=== PATIENT | male | born 1970 | race Caucasian/White ===

== ENCOUNTER 2019-09-22 18:42 | Inpatient (IN) | payer OTHER ==
[2019-09-22] MEDS ORDERED: SODIUM CHLORIDE 0.9% 500 ML 500 ML IV ONE (18:51)
[2019-09-22 19:23] LABS: Hematocrit 38.3 % (35.5-45.6); Hemoglobin 12.4 gm/dl (11.8-15.2); Mean Corpuscular HGB Conc 32 % (32-34); Mean Corpuscular Volume 98 fl (84-94); Platelet Count 445 K/mm3 (140-440); Red Blood Count 3.89 M/mm3 (3.65-5.03); Red Cell Distribution Width 13.2 % (13.2-15.2)
[2019-09-22 19:30] LABS: INR 1.17 (0.87-1.13)
[2019-09-22] MEDS ORDERED: CEFEPIME/NS 2 GM/100 ML 2 GM/100 ML BAG IV ONE (19:32)
[2019-09-22] MEDS ORDERED: MORPHINE 4 MG/1 ML INJ IV ONE (19:33)
[2019-09-22] MEDS ORDERED: SODIUM CHLORIDE 0.9% 1000 ML 2,000 ML IV ONE (19:35)
[2019-09-22 19:44] LABS: Albumin 2.3 g/dL (3.9-5); Calcium 9.2 mg/dL (8.4-10.2)
--- NOTE | 2019-09-22 19:54 | XRay Report ---
CHEST 1 VIEW 09/22/2019 7:20 PM INDICATION / CLINICAL INFORMATION: possible Sepsis. COMPARISON: None available. FINDINGS: SUPPORT DEVICES: None. HEART / MEDIASTINUM: No significant abnormality. LUNGS / PLEURA: No significant pulmonary or pleural abnormality. No pneumothorax. ADDITIONAL FINDINGS: No significant additional findings. IMPRESSION: 1. No acute findings. Signer Name: Lawrence Fisher MD Signed: 09/22/2019 7:50 PM Workstation Name: [id number]
[2019-09-22 19:58] LABS: Basophils % (Manual) 0 % (0.0-1.8); Eosinophils % (Manual) 0 % (0.0-4.3); Total Cells Counted 100
[2019-09-22 19:59] LABS: RBC Morphology Normal
[2019-09-22] MEDS ORDERED: VANCOMYCIN PHARMACY TO DOSE IV SCH (20:00)
[2019-09-22] MEDS ORDERED: INSULIN REGULAR, HUMAN 100 UNITS/1 ML IV ONE ×2 (20:21→22:34)
--- NOTE | 2019-09-22 20:37 | Emergency Department Report ---
- General Chief Complaint: Skin/Abscess/Foreign Body Stated Complaint: HYPERTENSION/DIABETIC Time Seen by Provider: 09/22/19 19:24 Source: patient Mode of arrival: Wheelchair Limitations: No Limitations - History of Present Illness Initial Comments: Patient is a 48-year-old male presents emergency room with complaints of an abscess to the left buttock that began a week ago. He states there has been copious amounts of foul-smelling pus drainage. He states he has associated pain to the area. He denies hitting himself on anything or getting bit by anything that he can remember Denies any fever, chills, vomiting. He states he has never had this in the past. He states he has a past medical history of diabetes and is on metformin 500 mg daily. he denies any insulin use. He states he also has history of hypertension. He denies any allergies medications. - Related Data Home Medications Medication Instructions Recorded Confirmed Last Taken amLODIPine 1 tab PO DAILY 09/22/19 09/22/19 Unknown metFORMIN [Glucophage] 1 tab PO DAILY 09/22/19 09/22/19 Unknown Allergies Allergy/AdvReac Type Severity Reaction Status Date / Time No Known Allergies Allergy Unverified 09/22/19 18:50 ED Review of Systems ROS: Stated complaint: HYPERTENSION/DIABETIC Other details as noted in HPI Comment: All other systems reviewed and negative ED Past Medical Hx - Past Medical History Previous Medical History?: Yes Hx Hypertension: Yes Hx Diabetes: Yes - Social History Smoking Status: Unknown if ever smoked Substance Use Type: None - Medications Home Medications: Home Medications Medication Instructions Recorded Confirmed Last Taken Type amLODIPine 1 tab PO DAILY 09/22/19 09/22/19 Unknown History metFORMIN [Glucophage] 1 tab PO DAILY 09/22/19 09/22/19 Unknown History ED Physical Exam - General Limitations: No Limitations General appearance: alert, in no apparent distress - Head Head exam: Present: atraumatic, normocephalic - Eye Eye exam: Present: normal appearance - ENT ENT exam: Present: mucous membranes moist - Respiratory Respiratory exam: Present: normal lung sounds bilaterally. Absent: respiratory distress, wheezes, rales, rhonchi, stridor, chest wall tenderness, accessory muscle use, decreased breath sounds, prolonged expiratory - Cardiovascular Cardiovascular Exam: Present: regular rate, tachycardia, normal heart sounds. Absent: systolic murmur, diastolic murmur, rubs, gallop - Rectal Rectal exam: Present: other (large 9 cm area of induration, erythema, and increased warmth to the inner left gluteus, there is a 2 cm opening draining green/white purulent very foul smelling drainage, no involvement of the perineum or scrotum, fuller brush man: ARTHUR Lyman) - Neurological Exam Neurological exam: Present: alert, oriented X3 - Psychiatric Psychiatric exam: Present: normal affect, normal mood - Skin Skin exam: Present: warm ED Course Vital Signs 09/22/19 09/22/19 09/22/19 18:57 19:40 20:00 Temperature 98.8 F 98.9 F Pulse Rate 118 H 99 H 98 H Respiratory 16 17 17 Rate Blood Pressure 125/70 125/70 Blood Pressure 105/77 125/70 [Right] O2 Sat by Pulse 96 96 94 Oximetry 09/22/19 09/22/19 09/22/19 20:30 21:20 21:30 Temperature Pulse Rate 94 H 100 H 95 H Respiratory 18 13 17 Rate Blood Pressure 116/97 124/68 124/68 Blood Pressure [Right] O2 Sat by Pulse 95 96 95 Oximetry 09/22/19 09/22/19 09/22/19 22:00 23:00 23:30 Temperature Pulse Rate 92 H 94 H 95 H Respiratory 13 23 21 Rate Blood Pressure 122/72 125/70 120/79 Blood Pressure [Right] O2 Sat by Pulse 92 93 90 Oximetry 09/23/19 09/23/19 09/23/19 00:40 00:50 00:56 Temperature 98.9 F Pulse Rate 92 H 94 H 92 H Respiratory 29 H 27 H 22 Rate Blood Pressure 122/77 128/78 Blood Pressure 122/77 [Right] O2 Sat by Pulse 90 89 Oximetry 09/23/19 09/23/19 09/23/19 01:00 01:10 01:20 Temperature Pulse Rate 94 H 97 H 99 H Respiratory 33 H 26 H 30 H Rate Blood Pressure 128/78 128/78 148/72 Blood Pressure [Right] O2 Sat by Pulse 90 93 88 Oximetry - Consultations Consultation #1: 09/22/19 22:[address] Reilly, general surgery, regarding pt and CT results recommended NPO, advised for the hospitalist to admit and to aggressively fluid resuscitate, will take to the OR in the AM. Consultation #2: 09/22/19 23:[address] Harvey, hospitalist regarding patient, will accept and resume care of patient, will admit to the hospital ED Medical Decision Making - Lab Data Result diagrams: 09/22/19 19:00 09/22/19 19:00 Lab Results 09/22/19 09/22/19 09/22/19 Range/Units 19:00 19:00 19:00 WBC 16.2 H (4.5-11.0) K/mm3 RBC 3.89 (3.65-5.03) M/mm3 Hgb 12.4 (11.8-15.2) gm/dl Hct 38.3 (35.5-45.6) % MCV 98 H (84-94) fl MCH 32 (28-32) pg MCHC 32 (32-34) % RDW 13.2 (13.2-15.2) % Plt Count 445 H (140-440) K/mm3 Add Manual Diff Complete Total Counted 100 Seg Neuts % (Manual) 84.0 H (40.0-70.0) % Band Neutrophils % 0 % Lymphocytes % (Manual) 10.0 L (13.4-35.0) % Reactive Lymphs % (Man) 0 % Monocytes % (Manual) 6.0 (0.0-7.3) % Eosinophils % (Manual) 0 (0.0-4.3) % Basophils % (Manual) 0 (0.0-1.8) % Metamyelocytes % 0 % Myelocytes % 0 % Promyelocytes % 0 % Blast Cells % 0 % Nucleated RBC % Not Reportable Seg Neutrophils # Man 13.6 H (1.8-7.7) K/mm3 Band Neutrophils # 0.0 K/mm3 Lymphocytes # (Manual) 1.6 (1.2-5.4) K/mm3 Abs React Lymphs (Man) 0.0 K/mm3 Monocytes # (Manual) 1.0 H (0.0-0.8) K/mm3 Eosinophils # (Manual) 0.0 (0.0-0.4) K/mm3 Basophils # (Manual) 0.0 (0.0-0.1) K/mm3 Metamyelocytes # 0.0 K/mm3 Myelocytes # 0.0 K/mm3 Promyelocytes # 0.0 K/mm3 Blast Cells # 0.0 K/mm3 WBC Morphology Not Reportable Hypersegmented Neuts Not Reportable Hyposegmented Neuts Not Reportable Hypogranular Neuts Not Reportable Smudge Cells Not Reportable Toxic Granulation Not Reportable Toxic Vacuolation Not Reportable Dohle Bodies Not Reportable Pelger-Huet Anomaly Not Reportable Mili Rods Not Reportable Platelet Estimate Not Reportable Clumped Platelets Not Reportable Plt Clumps, EDTA Not Reportable Large Platelets Not Reportable Giant Platelets Not Reportable Platelet Satelliting Not Reportable Plt Morphology Comment Not Reportable RBC Morphology Normal Dimorphic RBCs Not Reportable Polychromasia Not Reportable Hypochromasia Not Reportable Poikilocytosis Not Reportable Anisocytosis Not Reportable Microcytosis Not Reportable Macrocytosis Not Reportable Spherocytes Not Reportable Pappenheimer Bodies Not Reportable Sickle Cells Not Reportable Target Cells Not Reportable Tear Drop Cells Not Reportable Ovalocytes Not Reportable Helmet Cells Not Reportable [place] Bodies Not Reportable [place] Rings Not Reportable [place] Cells Not Reportable Bite Cells Not Reportable Crenated Cell Not Reportable Elliptocytes Not Reportable Acanthocytes (Spur) Not Reportable Rouleaux Not Reportable Hemoglobin C Crystals Not Reportable Schistocytes Not Reportable Malaria parasites Not Reportable Nicholas Bodies Not Reportable Hem Pathologist Commnt No PT 14.8 (12.2-14.9) Sec. INR 1.17 H (0.87-1.13) VBG pH (7.320-7.420) Sodium 124 L (137-145) mmol/L Potassium 4.4 (3.6-5.0) mmol/L Chloride 81.8 L (98-107) mmol/L Carbon Dioxide 20 L (22-30) mmol/L Anion Gap 27 mmol/L BUN 20 (9-20) mg/dL Creatinine 1.3 (0.8-1.5) mg/dL Estimated GFR 59 ml/min BUN/Creatinine Ratio 15 % Glucose 687 H* (75-100) mg/dL POC Glucose (70-105) Lactic Acid (0.7-2.0) mmol/L Calcium 9.2 (8.4-10.2) mg/dL Total Bilirubin 0.40 (0.1-1.2) mg/dL AST 51 H (5-40) units/L ALT 48 (7-56) units/L Alkaline Phosphatase 128 (35-129) units/L Total Protein 7.9 (6.3-8.2) g/dL Albumin 2.3 L (3.9-5) g/dL Albumin/Globulin Ratio 0.4 % 09/22/19 09/22/19 09/22/19 Range/Units 19:00 19:00 20:07 WBC (4.5-11.0) K/mm3 RBC (3.65-5.03) M/mm3 Hgb (11.8-15.2) gm/dl Hct (35.5-45.6) % MCV (84-94) fl MCH (28-32) pg MCHC (32-34) % RDW (13.2-15.2) % Plt Count (140-440) K/mm3 Add Manual Diff Total Counted Seg Neuts % (Manual) (40.0-70.0) % Band Neutrophils % % Lymphocytes % (Manual) (13.4-35.0) % Reactive Lymphs % (Man) % Monocytes % (Manual) (0.0-7.3) % Eosinophils % (Manual) (0.0-4.3) % Basophils % (Manual) (0.0-1.8) % Metamyelocytes % % Myelocytes % % Promyelocytes % % Blast Cells % % Nucleated RBC % Seg Neutrophils # Man (1.8-7.7) K/mm3 Band Neutrophils # K/mm3 Lymphocytes # (Manual) (1.2-5.4) K/mm3 Abs React Lymphs (Man) K/mm3 Monocytes # (Manual) (0.0-0.8) K/mm3 Eosinophils # (Manual) (0.0-0.4) K/mm3 Basophils # (Manual) (0.0-0.1) K/mm3 Metamyelocytes # K/mm3 Myelocytes # K/mm3 Promyelocytes # K/mm3 Blast Cells # K/mm3 WBC Morphology Hypersegmented Neuts Hyposegmented Neuts Hypogranular Neuts Smudge Cells Toxic Granulation Toxic Vacuolation Dohle Bodies Pelger-Huet Anomaly Mili Rods Platelet Estimate Clumped Platelets Plt Clumps, EDTA Large Platelets Giant Platelets Platelet Satelliting Plt Morphology Comment RBC Morphology Dimorphic RBCs Polychromasia Hypochromasia Poikilocytosis Anisocytosis Microcytosis Macrocytosis Spherocytes Pappenheimer Bodies Sickle Cells Target Cells Tear Drop Cells Ovalocytes Helmet Cells [place] Bodies [place] Rings [place] Cells Bite Cells Crenated Cell Elliptocytes Acanthocytes (Spur) Rouleaux Hemoglobin C Crystals Schistocytes Malaria parasites Nicholas Bodies Hem Pathologist Commnt PT (12.2-14.9) Sec. INR (0.87-1.13) VBG pH 7.354 (7.320-7.420) Sodium (137-145) mmol/L Potassium (3.6-5.0) mmol/L Chloride (98-107) mmol/L Carbon Dioxide (22-30) mmol/L Anion Gap mmol/L BUN (9-20) mg/dL Creatinine (0.8-1.5) mg/dL Estimated GFR ml/min BUN/Creatinine Ratio % Glucose (75-100) mg/dL POC Glucose (70-105) Lactic Acid 6.40 H* 3.90 H* (0.7-2.0) mmol/L Calcium (8.4-10.2) mg/dL Total Bilirubin (0.1-1.2) mg/dL AST (5-40) units/L ALT (7-56) units/L Alkaline Phosphatase (35-129) units/L Total Protein (6.3-8.2) g/dL Albumin (3.9-5) g/dL Albumin/Globulin Ratio % //19 Range/Units 20:50 WBC (4.5-11.0) K/mm3 RBC (3.65-5.03) M/mm3 Hgb (11.8-15.2) gm/dl Hct (35.5-45.6) % MCV (84-94) fl MCH (28-32) pg MCHC (32-34) % RDW (13.2-15.2) % Plt Count (140-440) K/mm3 Add Manual Diff Total Counted Seg Neuts % (Manual) (40.0-70.0) % Band Neutrophils % % Lymphocytes % (Manual) (13.4-35.0) % Reactive Lymphs % (Man) % Monocytes % (Manual) (0.0-7.3) % Eosinophils % (Manual) (0.0-4.3) % Basophils % (Manual) (0.0-1.8) % Metamyelocytes % % Myelocytes % % Promyelocytes % % Blast Cells % % Nucleated RBC % Seg Neutrophils # Man (1.8-7.7) K/mm3 Band Neutrophils # K/mm3 Lymphocytes # (Manual) (1.2-5.4) K/mm3 Abs React Lymphs (Man) K/mm3 Monocytes # (Manual) (0.0-0.8) K/mm3 Eosinophils # (Manual) (0.0-0.4) K/mm3 Basophils # (Manual) (0.0-0.1) K/mm3 Metamyelocytes # K/mm3 Myelocytes # K/mm3 Promyelocytes # K/mm3 Blast Cells # K/mm3 WBC Morphology Hypersegmented Neuts Hyposegmented Neuts Hypogranular Neuts Smudge Cells Toxic Granulation Toxic Vacuolation Dohle Bodies Pelger-Huet Anomaly Mili Rods Platelet Estimate Clumped Platelets Plt Clumps, EDTA Large Platelets Giant Platelets Platelet Satelliting Plt Morphology Comment RBC Morphology Dimorphic RBCs Polychromasia Hypochromasia Poikilocytosis Anisocytosis Microcytosis Macrocytosis Spherocytes Pappenheimer Bodies Sickle Cells Target Cells Tear Drop Cells Ovalocytes Helmet Cells [place] Bodies [place] Rings Al Cells Bite Cells Crenated Cell Elliptocytes Acanthocytes (Spur) Rouleaux Hemoglobin C Crystals Schistocytes Malaria parasites Nicholas Bodies Hem Pathologist Commnt PT (12.2-14.9) Sec. INR (0.87-1.13) VBG pH (7.320-7.420) Sodium (137-145) mmol/L Potassium (3.6-5.0) mmol/L Chloride (98-107) mmol/L Carbon Dioxide (22-30) mmol/L Anion Gap mmol/L BUN (9-20) mg/dL Creatinine (0.8-1.5) mg/dL Estimated GFR ml/min BUN/Creatinine Ratio % Glucose (75-100) mg/dL POC Glucose > 500 H (70-105) Lactic Acid (0.7-2.0) mmol/L Calcium (8.4-10.2) mg/dL Total Bilirubin (0.1-1.2) mg/dL AST (5-40) units/L ALT (7-56) units/L Alkaline Phosphatase (35-129) units/L Total Protein (6.3-8.2) g/dL Albumin (3.9-5) g/dL Albumin/Globulin Ratio % - Radiology Data Radiology results: report reviewed CT ABDOMEN AND PELVIS WITH CONTRAST HISTORY: Gluteal abscess COMPARISON: None TECHNIQUE: Routine abdominal and pelvic CT exam performed following intravenous contrast administration. Patient received 100 mL of IV Omnipaque 300. All CT scans at this location are performed using CT dose reduction for ALARA by means of automated exposure control. FINDINGS: CT ABDOMEN: Lung Bases: No significant abnormality. Liver: No significant abnormality. Biliary: Gallbladder is surgically absent. Spleen: No significant abnormality. Unenlarged. Pancreas: No significant abnormality. Adrenals: No significant abnormality. Kidneys: There are multiple parapelvic cysts in the left kidney. Lymphatics: No lymphadenopathy. Vasculature: No significant abnormality. Bowel/Peritoneum: No significant abnormality. No free air. No free fluid. Normal appendix. CT PELVIC: : No significant abnormality. Lymphatics: No lymphadenopathy. Osseous Structures: No aggressive appearing osseous lesions. Additional Findings: There is subcutaneous fat stranding consistent with cellulitis in the left gluteal subcutaneous soft tissues. However, there is evidence of additional subcutaneous air in the subcutaneous soft tissues extending up to the posterior aspect of the lower sacrum. There is no deep interfascial air. IMPRESSION: 1. Left gluteal cellulitis with moderate volume of superficial subcutaneous air. No discrete fluid collection. There is not deep interfascial air at this time to suggest necrotizing fasciitis but the degree of subcutaneous air does suggest the possibility of a gas-forming organism and does place the patient risk of development of necrotizing fasciitis, which be monitored/evaluated for closely. Signer Name: Lawrence Fisher MD Signed: 09/22/2019 9:49 PM Workstation Name: [employer] CHEST 1 VIEW 09/22/2019 7:20 PM INDICATION / CLINICAL INFORMATION: possible Sepsis. COMPARISON: None available. FINDINGS: SUPPORT DEVICES: None. HEART / MEDIASTINUM: No significant abnormality. LUNGS / PLEURA: No significant pulmonary or pleural abnormality. No pneumothorax. ADDITIONAL FINDINGS: No significant additional findings. IMPRESSION: 1. No acute findings. Signer Name: Lawrence Fisher MD Signed: 09/22/2019 7:50 PM Workstation Name: [employer] - Medical Decision Making Patient is a 48-year-old male presents emergency room with complaints of an abscess to the left buttock that began a week ago. He states there has been copious amounts of foul-smelling pus drainage. He states he has associated pain to the area. He denies hitting himself on anything or getting bit by anything that he can remember Denies any fever, chills, vomiting. He states he has never had this in the past. He states he has a past medical history of diabetes and is on metformin 500 mg daily. he denies any insulin use. He states he also has history of hypertension. He denies any allergies medications. sepsis protocol initiated in triage, fluid calculation based on ideal body weight. Labs significant for leukocytosis, hyperglycemia, lactic acidosis, dehydration. pt given IV fluids, IV insulin, IV vancomycin and cefepime. on exam: large 9 cm area of induration, erythema, and increased warmth to the inner left gluteus, there is a 2 cm opening draining green/white purulent very foul smelling drainage, no involvement of the perineum or scrotum, fuller brush man: ARTHUR Lyman. CT abd pelvis with IV contrast 1. Left gluteal cellulitis with moderate volume of superficial subcutaneous air. No discrete fluid collection. There is not deep interfascial air at this time to suggest necrotizing fasciitis but the degree of subcutaneous air does suggest the possibility of a gas-forming organism and does place the patient risk of development of necrotizing fasciitis, which be monitored/evaluated for closely. spoke with Dr. Reilly, general surgery, regarding pt and CT results recommended NPO, advised for the hospitalist to admit and to aggressively fluid resuscitate, will take to the OR in the AM. spoke with Dr. Harvey, hospitalist regarding patient, will accept and resume care of patient, will admit to the hospital - Differential Diagnosis perirectal abscess, cellulitis, Edwar's gangrene Critical care attestation.: If time is entered above; I have spent that time in minutes in the direct care of this critically ill patient, excluding procedure time. ED Disposition Clinical Impression: Cellulitis, gluteal, left Hyperglycemia due to type 2 diabetes mellitus Qualifiers: Diabetes mellitus usp insulin use: without buttermaker use Qualified Code(s): E11.65 - Type 2 diabetes mellitus with hyperglycemia Disposition: DC-09 OP ADMIT IP TO THIS HOSP Is pt being admited?: Yes Does the pt Need Aspirin: No Condition: Fair
[2019-09-22] MEDS ORDERED: VANCOMYCIN 2,000 MG in SODIUM CHLORIDE 0.9% 500 ML 500 ML IV ONE (20:45)
--- NOTE | 2019-09-22 21:53 | Cat Scan Report ---
CT ABDOMEN AND PELVIS WITH CONTRAST HISTORY: Gluteal abscess COMPARISON: None TECHNIQUE: Routine abdominal and pelvic CT exam performed following intravenous contrast administrat ion. Patient received 100 mL of IV Omnipaque 300. All CT scans at this location are performed using C T dose reduction for ALARA by means of automated exposure control. FINDINGS: CT ABDOMEN: Lung Bases: No significant abnormality. Liver: No significant abnormality. Biliary: Gallbladder is surgically absent. Spleen: No significant abnormality. Unenlarged. Pancreas: No significant abnormality. Adrenals: No significant abnormality. Kidneys: There are multiple parapelvic cysts in the left kidney. Lymphatics: No lymphadenopathy. Vasculature: No significant abnormality. Bowel/Peritoneum: No significant abnormality. No free air. No free fluid. Normal appendix. CT PELVIC: : No significant abnormality. Lymphatics: No lymphadenopathy. Osseous Structures: No aggressive appearing osseous lesions. Additional Findings: There is subcutaneous fat stranding consistent with cellulitis in the left glute al subcutaneous soft tissues. However, there is evidence of additional subcutaneous air in the subcut aneous soft tissues extending up to the posterior aspect of the lower sacrum. There is no deep interf ascial air. IMPRESSION: 1. Left gluteal cellulitis with moderate volume of superficial subcutaneous air. No discrete fluid co llection. There is not deep interfascial air at this time to suggest necrotizing fasciitis but the de gree of subcutaneous air does suggest the possibility of a gas-forming organism and does place the pa tient risk of development of necrotizing fasciitis, which be monitored/evaluated for closely. Signer Name: Lawrence Fisher MD Signed: 09/22/2019 9:49 PM Workstation Name: [employer]
--- NOTE | 2019-09-22 22:12 | Event Note ---
Date of service: 09/22/19 Face to Face: For this encounter I have reviewed the PA/[employer] documentation, treatment plan, medical decision making, and I had face to face time with this patient.
[2019-09-22] MEDS ORDERED: SODIUM CHLORIDE 0.9% 1000 ML 1,000 ML IV ONE (22:34)
--- NOTE | 2019-09-22 23:24 | History and Physical Report ---
History of Present Illness Chief complaint: My butt hurts History of present illness: 48 YO Male with Obesity, HTN, DM presents to ED for evaluation. Pt states that he has experience pain and redness to his left buttock over the past 1 week with progressively worsening symptoms over the same time frame. Pt also reports found smelling pus drainage from the wound. Pt transported to [facility] via private vehicle. Pt seen and evaluated in ED and found to have Left buttock cellulitis complicated by soft tissue infection. Surgery team consulted in ED. Pt placed on IV antibiotic therapy. Surgical intervention as per surgery team. Pt denies trauma, fever, chills, CP, Palpitations, NVD, or recent ill contacts. No prior admission for review. All listed medication reconciled at time of admission. Past History Past Medical History: other (see hpi) Past Surgical History: No surgical history, Other (reviewed) Social history: single. denies: smoking, alcohol abuse, prescription drug abuse Family history: diabetes, hypertension Medications and Allergies Allergies Allergy/AdvReac Type Severity Reaction Status Date / Time No Known Allergies Allergy Unverified 09/22/19 18:50 Home Medications Medication Instructions Recorded Confirmed Last Taken Type amLODIPine 1 tab PO DAILY 09/22/19 09/22/19 Unknown History metFORMIN [Glucophage] 1 tab PO DAILY 09/22/19 09/22/19 Unknown History Active Meds: Active Medications Vancomycin HCl 2,000 mg/ (Sodium Chloride) 540 mls @ 250 mls/hr IV Q12H KAREN Sodium Chloride (Nacl 0.9% 1000 Ml) 1,000 mls @ 999 mls/hr IV BOLUS ONE Stop: 09/22/19 23:34 Review of Systems Constitutional: no weight loss, no weight gain, no fever, no chills Ears, nose, mouth and throat: no ear pain, no ear discharge, no tinnitis, no decreased hearing, no nasal discharge Cardiovascular: no chest pain, no orthopnea, no rapid/irregular heart beat, no edema, no syncope, no lightheadedness Respiratory: no cough, no cough with sputum, no excessive sputum, no hemoptysis, no shortness of breath Gastrointestinal: no abdominal pain, no nausea, no vomiting, no constipation, no change in bowel habits, no coffee ground emesis Genitourinary Male: no dysuria, no hematuria, no flank pain, no discharge, no urinary frequency, no urinary hesitancy, no nocturia Rectal: no pain, no incontinence, no bleeding Musculoskeletal: no neck stiffness, no neck pain, no shooting arm pain, no arm numbness/tingling, no low back pain Integumentary: redness, other (left buttock redness, purulent drainage), no rash Neurological: no head injury, no paralysis, no weakness, no tingling, no tremors Psychiatric: no anxiety, no insomnia, no hypersomnia, no change in appetite, no suicidal ideation, no disorientation Endocrine: no cold intolerance, no polyphagia, no polydipsia, no polyuria Hematologic/Lymphatic: no easy bruising, no easy bleeding, no lymphadenopathy Allergic/Immunologic: no urticaria, no wheezing, no persistent infections, no anaphylaxis Exam - Constitutional Vitals: Temp Pulse Resp BP Pulse Ox 98.9 F 92 H 13 122/72 92 09/22/19 19:40 09/22/19 22:00 09/22/19 22:00 09/22/19 22:00 09/22/19 22:00 General appearance: Present: mild distress, obese - EENT Eyes: Present: PERRL ENT: hearing intact, clear oral mucosa - Neck Neck: Present: supple, normal ROM - Respiratory Respiratory effort: normal Respiratory: bilateral: CTA - Cardiovascular Heart Sounds: Present: S1 & S2. Absent: rub, click - Extremities Extremities: pulses symmetrical, No edema Peripheral Pulses: within normal limits - Abdominal General gastrointestinal: Present: soft, non-tender, non-distended, normal bowel sounds Male genitourinary: Present: normal - Rectal Rectal Exam: other (left buttock purulent drainage, ) - Integumentary Integumentary: Present: clear, warm, dry - Musculoskeletal Musculoskeletal: gait normal, strength equal bilaterally - Psychiatric Psychiatric: appropriate mood/affect, intact judgment & insight - Neurologic Neurologic: CNII-XII intact, moves all extremities Results - Labs CBC & Chem 7: 09/22/19 19:00 09/22/19 19:00 Labs: Abnormal lab results 09/22/19 09/22/19 09/22/19 Range/Units 19:00 19:00 19:00 WBC 16.2 H (4.5-11.0) K/mm3 MCV 98 H (84-94) fl Plt Count 445 H (140-440) K/mm3 Seg Neuts % (Manual) 84.0 H (40.0-70.0) % Lymphocytes % (Manual) 10.0 L (13.4-35.0) % Seg Neutrophils # Man 13.6 H (1.8-7.7) K/mm3 Monocytes # (Manual) 1.0 H (0.0-0.8) K/mm3 INR 1.17 H (0.87-1.13) Sodium 124 L (137-145) mmol/L Chloride 81.8 L (98-107) mmol/L Carbon Dioxide 20 L (22-30) mmol/L Glucose 687 H* (75-100) mg/dL POC Glucose (70-105) Lactic Acid (0.7-2.0) mmol/L AST 51 H (5-40) units/L Albumin 2.3 L (3.9-5) g/dL 09/22/19 09/22/19 09/22/19 Range/Units 19:00 20:07 20:50 WBC (4.5-11.0) K/mm3 MCV (84-94) fl Plt Count (140-440) K/mm3 Seg Neuts % (Manual) (40.0-70.0) % Lymphocytes % (Manual) (13.4-35.0) % Seg Neutrophils # Man (1.8-7.7) K/mm3 Monocytes # (Manual) (0.0-0.8) K/mm3 INR (0.87-1.13) Sodium (137-145) mmol/L Chloride (98-107) mmol/L Carbon Dioxide (22-30) mmol/L Glucose (75-100) mg/dL POC Glucose > 500 H (70-105) Lactic Acid 6.40 H* 3.90 H* (0.7-2.0) mmol/L AST (5-40) units/L Albumin (3.9-5) g/dL 09/22/19 Range/Units 22:40 WBC (4.5-11.0) K/mm3 MCV (84-94) fl Plt Count (140-440) K/mm3 Seg Neuts % (Manual) (40.0-70.0) % Lymphocytes % (Manual) (13.4-35.0) % Seg Neutrophils # Man (1.8-7.7) K/mm3 Monocytes # (Manual) (0.0-0.8) K/mm3 INR (0.87-1.13) Sodium (137-145) mmol/L Chloride (98-107) mmol/L Carbon Dioxide (22-30) mmol/L Glucose (75-100) mg/dL POC Glucose 464 H (70-105) Lactic Acid (0.7-2.0) mmol/L AST (5-40) units/L Albumin (3.9-5) g/dL Assessment and Plan - Patient Problems (1) SIRS (systemic inflammatory response syndrome) Current Visit: Yes Status: Acute Plan to address problem: IV antibiotic therapy, IVF resuscitation therapy, CBC, CMP, chest x ray, urinalysis. (2) Acidosis Current Visit: Yes Status: Acute Plan to address problem: IVF resuscitation therapy, repeat bmp. (3) Diabetes Current Visit: Yes Status: Acute Plan to address problem: ADA diet, insulin, accu check, hypoglycemia protocol (4) Cellulitis, gluteal, left Current Visit: Yes Status: Acute Plan to address problem: IV antibiotic therapy, cbc, cmp, CT Abdomen/Pelvis, Surgery consulted, surgical intervention as per surgical team. (5) DVT prophylaxis Current Visit: Yes Status: Acute Plan to address problem: SCD to BLE while in bed, Pt ambulatory
[2019-09-22] MEDS ORDERED: ACETAMINOPHEN 325 MG TAB PO PRN (23:43)
[2019-09-22] MEDS ORDERED: ALBUTEROL 2.5 MG/3 ML NEBU IH PRN (23:43)
[2019-09-22] MEDS ORDERED: ONDANSETRON 4 MG/2 ML INJ IV PRN (23:43)
[2019-09-22] MEDS ORDERED: DEXTROSE 50% IN WATER (25GM) 50 ML SYRINGE IV PRN (23:45)
[2019-09-23] MEDS: INSULIN LISPRO 100 UNIT/ML SUB-Q SCH ×4 (00:36→18:13)
[2019-09-23 00:41] LABS: Bilirubin,Urine NEG (Negative); Blood,Urine SM (Negative); Color,Urine Yellow (Yellow); Urobilinogen,Urine < 2.0 mg/dL (<2.0)
--- NOTE | 2019-09-23 10:32 | Consultation ---
History of Present Illness Consult date: 09/23/19 Reason for consult: other (buttock infection) Requesting physician: TIKI ROBERTS Chief complaint: left buttock pain - History of present illness History of present illness: 48 YO Male with Obesity, HTN, DM presents to ED for evaluation. Pt states that he has experience pain and redness to his left buttock over the past 1 week with progressively worsening symptoms over the same time frame. Pt also reports found smelling pus drainage from the wound. Pt denies trauma, fever, chills, CP, Palpitations, NVD, or recent ill contacts. Initial BS was 600. CT scan showed significant infection in left buttock. Gen Surg consulted for evaluation and management. Past History Past Medical History: other (see hpi) Past Surgical History: No surgical history, Other (reviewed) Social history: single. denies: smoking, alcohol abuse, prescription drug abuse Family history: diabetes, hypertension Medications and Allergies Allergies Allergy/AdvReac Type Severity Reaction Status Date / Time No Known Allergies Allergy Unverified 09/22/19 18:50 Home Medications Medication Instructions Recorded Confirmed Last Taken Type amLODIPine 1 tab PO DAILY 09/22/19 09/22/19 Unknown History metFORMIN [Glucophage] 1 tab PO DAILY 09/22/19 09/22/19 Unknown History Active Meds: Active Medications Acetaminophen (Tylenol) 650 mg PO Q4H PRN PRN Reason: Pain MILD(1-3)/Fever >100.5/SALINAS Albuterol (Proventil) 2.5 mg IH Q4HRT PRN PRN Reason: Shortness Of Breath Amlodipine Besylate (Amlodipine) 10 mg PO DAILY [facility] Dextrose (D50w (25gm) Syringe) 0 ml IV Q30MIN PRN; Protocol PRN Reason: Hypoglycemia Vancomycin HCl 2,000 mg/ (Sodium Chloride) 540 mls @ 250 mls/hr IV Q12H KAREN Cefazolin Sodium 2 gm/ Sodium (Chloride) 100 mls @ 200 mls/hr IV Q8HR KAREN; Protocol Last Admin: 09/23/19 05:52 Dose: 200 mls/hr Documented by: Insulin Human Lispro (Humalog) 0 unit SUB-Q Q6HR KAREN; Protocol Last Admin: 09/23/19 07:14 Dose: 10 unit Documented by: Ondansetron HCl (Zofran) 4 mg IV Q8H PRN PRN Reason: Nausea And Vomiting Sodium Chloride (Sodium Chloride Flush Syringe 10 Ml) 10 ml IV BID KAREN Sodium Chloride (Sodium Chloride Flush Syringe 10 Ml) 10 ml IV PRN PRN PRN Reason: LINE FLUSH Review of Systems - Constitutional no fever, no chills, no chronic pain - Cardiovascular no chest pain, no shortness of breath - Respiratory no cough - Gastrointestinal no abdominal pain, no nausea, no vomiting - Integumentary redness, boils Exam Vital Signs Temp Pulse Resp BP Pulse Ox 98.8 F 118 H 16 105/77 96 09/22/19 18:57 09/22/19 18:57 09/22/19 18:57 09/22/19 18:57 09/22/19 18:57 - General physical appearance Positive: no distress, no pain, obese - Eyes Positive: normal occular movement - Respiratory Positive: normal expansion, normal respiratory effort, clear to auscultation - Cardiovascular Rhythm: regular - Abdomen Abdomen: Present: soft. Absent: tender - Integumentary other (necrotic wound on inner aspect of left buttock. +erythema and tenderness. +Induration.) - Neurologic Neurologic: alert and oriented to time, place and person, motor strength and sensation are grossly intact - Psychiatric Psychiatric: appropriate mood/affect, intact judgment & insight, cooperative Results - Labs 09/22/19 19:00 09/22/19 19:00 Abnormal lab results 09/22/19 09/22/19 09/22/19 Range/Units 19:00 19:00 19:00 WBC 16.2 H (4.5-11.0) K/mm3 MCV 98 H (84-94) fl Plt Count 445 H (140-440) K/mm3 Seg Neuts % (Manual) 84.0 H (40.0-70.0) % Lymphocytes % (Manual) 10.0 L (13.4-35.0) % Seg Neutrophils # Man 13.6 H (1.8-7.7) K/mm3 Monocytes # (Manual) 1.0 H (0.0-0.8) K/mm3 INR 1.17 H (0.87-1.13) Sodium 124 L (137-145) mmol/L Chloride 81.8 L (98-107) mmol/L Carbon Dioxide 20 L (22-30) mmol/L Glucose 687 H* (75-100) mg/dL POC Glucose (70-105) Lactic Acid (0.7-2.0) mmol/L AST 51 H (5-40) units/L Albumin 2.3 L (3.9-5) g/dL Ur Specific [place] (1.003-1.030) 09/22/19 09/22/19 09/22/19 Range/Units 19:00 20:07 20:50 WBC (4.5-11.0) K/mm3 MCV (84-94) fl Plt Count (140-440) K/mm3 Seg Neuts % (Manual) (40.0-70.0) % Lymphocytes % (Manual) (13.4-35.0) % Seg Neutrophils # Man (1.8-7.7) K/mm3 Monocytes # (Manual) (0.0-0.8) K/mm3 INR (0.87-1.13) Sodium (137-145) mmol/L Chloride (98-107) mmol/L Carbon Dioxide (22-30) mmol/L Glucose (75-100) mg/dL POC Glucose > 500 H (70-105) Lactic Acid 6.40 H* 3.90 H* (0.7-2.0) mmol/L AST (5-40) units/L Albumin (3.9-5) g/dL Ur Specific [place] (1.003-1.030) 09/22/19 09/22/19 09/23/19 Range/Units 22:40 23:18 00:33 WBC (4.5-11.0) K/mm3 MCV (84-94) fl Plt Count (140-440) K/mm3 Seg Neuts % (Manual) (40.0-70.0) % Lymphocytes % (Manual) (13.4-35.0) % Seg Neutrophils # Man (1.8-7.7) K/mm3 Monocytes # (Manual) (0.0-0.8) K/mm3 INR (0.87-1.13) Sodium (137-145) mmol/L Chloride (98-107) mmol/L Carbon Dioxide (22-30) mmol/L Glucose (75-100) mg/dL POC Glucose 464 H 406 H (70-105) Lactic Acid 2.50 H* (0.7-2.0) mmol/L AST (5-40) units/L Albumin (3.9-5) g/dL Ur Specific [place] (1.003-1.030) 09/23/19 09/23/19 Range/Units 06:24 Unknown WBC (4.5-11.0) K/mm3 MCV (84-94) fl Plt Count (140-440) K/mm3 Seg Neuts % (Manual) (40.0-70.0) % Lymphocytes % (Manual) (13.4-35.0) % Seg Neutrophils # Man (1.8-7.7) K/mm3 Monocytes # (Manual) (0.0-0.8) K/mm3 INR (0.87-1.13) Sodium (137-145) mmol/L Chloride (98-107) mmol/L Carbon Dioxide (22-30) mmol/L Glucose (75-100) mg/dL POC Glucose 354 H (70-105) Lactic Acid (0.7-2.0) mmol/L AST (5-40) units/L Albumin (3.9-5) g/dL Ur Specific [place] 1.035 H (1.003-1.030) Diabetes panel 09/22/19 Range/Units 19:00 Sodium 124 L (137-145) mmol/L Potassium 4.4 (3.6-5.0) mmol/L Chloride 81.8 L (98-107) mmol/L Carbon Dioxide 20 L (22-30) mmol/L BUN 20 (9-20) mg/dL Creatinine 1.3 (0.8-1.5) mg/dL Glucose 687 H* (75-100) mg/dL Calcium 9.2 (8.4-10.2) mg/dL AST 51 H (5-40) units/L ALT 48 (7-56) units/L Alkaline Phosphatase 128 (35-129) units/L Total Protein 7.9 (6.3-8.2) g/dL Albumin 2.3 L (3.9-5) g/dL Calcium panel 09/22/19 Range/Units 19:00 Calcium 9.2 (8.4-10.2) mg/dL Albumin 2.3 L (3.9-5) g/dL Pituitary panel 09/22/19 Range/Units 19:00 Sodium 124 L (137-145) mmol/L Potassium 4.4 (3.6-5.0) mmol/L Chloride 81.8 L (98-107) mmol/L Carbon Dioxide 20 L (22-30) mmol/L BUN 20 (9-20) mg/dL Creatinine 1.3 (0.8-1.5) mg/dL Glucose 687 H* (75-100) mg/dL Calcium 9.2 (8.4-10.2) mg/dL Adrenal panel 09/22/19 Range/Units 19:00 Sodium 124 L (137-145) mmol/L Potassium 4.4 (3.6-5.0) mmol/L Chloride 81.8 L (98-107) mmol/L Carbon Dioxide 20 L (22-30) mmol/L BUN 20 (9-20) mg/dL Creatinine 1.3 (0.8-1.5) mg/dL Glucose 687 H* (75-100) mg/dL Calcium 9.2 (8.4-10.2) mg/dL Total Bilirubin 0.40 (0.1-1.2) mg/dL AST 51 H (5-40) units/L ALT 48 (7-56) units/L Alkaline Phosphatase 128 (35-129) units/L Total Protein 7.9 (6.3-8.2) g/dL Albumin 2.3 L (3.9-5) g/dL - Imaging CT scan - abdomen: report reviewed, image reviewed CT scan - pelvis: report reviewed, image reviewed Assessment and Plan - Patient Problems (1) Left buttock abscess Current Visit: Yes Status: Acute Plan to address problem: Pt with fairly large abscess on left buttock. Will need operative debridement and washout. Procedure, risks, benefits were discussed. All questions were answered. Consent was obtained. We will proceed today to the operating room. Please call with questions. time=20min
[2019-09-23] MEDS: amLODIPine 10 MG TAB PO SCH (10:57)
[2019-09-23] MEDS ORDERED: SODIUM CHLORIDE 0.9% 1000 ML 1,000 ML IV ONE (11:00)
[2019-09-23] MEDS ORDERED: MORPHINE 2 MG/1 ML INJ IV PRN (11:04)
[2019-09-23] MEDS ORDERED: fentaNYL 100 MCG/2 ML INJ ONE (11:41)
[2019-09-23] MEDS ORDERED: PROPOFOL 200 MG/20 ML VIAL IV ONE (11:42)
[2019-09-23] MEDS ORDERED: LIDOCAINE MPF (2%) 20 MG/1 ML VIAL 5 ML ONE (11:45)
--- NOTE | 2019-09-23 12:20 | Anesthesia Day of Surgery ---
Anesthesia Day of Surgery - Day of Surgery Patient Examined: Yes Patient H&P Reviewed: Yes Patient is NPO: Yes
--- NOTE | 2019-09-23 12:20 | Anesthesia Consultation ---
Anesthesia Consult and Med Hx Date of service: 09/23/19 - Airway Anesthetic Teeth Evaluation: Poor (denies loose teeth) ROM Head & Neck: Adequate Mental/Hyoid Distance: Adequate Mallampati Class: Class III Intubation Access Assessment: Possibly Difficult - Pulmonary Exam CTA: Yes - Cardiac Exam Cardiac Exam: RRR Anesthetic Concerns: Hyperglycemia with abcess/cellulitis scheduled for I&D abcess. Potential difficult intubation. - Pre-Operative Health Status ASA Pre-Surgery Classification: ASA3, Emergency Proposed Anesthetic Plan: General - Pulmonary Hx Respiratory Symptoms: No - Cardiovascular System Hx Hypertension: Yes Hx Heart Attack/AMI: No Hx Percutaneous Transluminal Coronary Angioplasty (PTCA): No - Central Nervous System CVA: No - Gastrointestinal Hx Gastroesophageal Reflux Disease: No - Endocrine Hx Renal Disease: No Hx Liver Disease: No Hx Non-Insulin Dependent Diabetes: Yes (presented w/ glucose >600. Remains suboptimally controlled.) Hx Thyroid Disease: No - Hematic Hx Anemia: No - Other Systems Hx Obesity: Yes (BMI 40)
[2019-09-23] MEDS ORDERED: ONDANSETRON 4 MG/2 ML INJ ONE (12:21)
[2019-09-23] MEDS ORDERED: SODIUM CHLORIDE 0.9% 1000 ML 1,000 ML ONE (12:21)
--- NOTE | 2019-09-23 12:24 | Progress Note ---
Assessment and Plan Assessment and plan: 48-year-old man with diabetes who presents to the hospital with left buttock swelling and pain. He then had a break in his skin and it was draining foul- smelling liquid Diagnosis Sepsis -Continue sepsis protocol, continue antibiotics, ID consult appreciated Left buttock abscess Status post I&D by general surgery, continue local wound care, follow-up with surgical cultures -Uncontrolled diabetes with persistent hyperglycemia -Optimize insulins Hypertension continue BP meds Pain control; continue pain medications severe malnutrition, albumin 2.3 History Interval history: Complaining of left buttock pain which is severe. Review of systems Constitutional: No fevers, no malaise, no joint pains CVS: No chest pain, no orthopnea, no pedal edema GI: No abdominal pain, no diarrhea, no vomiting, no constipation Respiratory: , no wheezing, no coughing Hospitalist Physical - Physical exam Narrative exam: General.: Appears well, no distress, nontoxic HEENT: Moist mucous membranes, extraocular muscles intact, no lymphadenopathy Neck: supple Cardiac: S1-S2 heard Lungs: clear to auscultation bilaterally Abdomen: soft , nontender, nondistended, bowel sounds positive Extremities: no edema clubbing or cyanosis Skin: Left buttock postsurgical dressing was not removed. Foul-smelling Neurologic: no gross focal deficits Psych: calm, and cooperative - Constitutional Vitals: Temp Pulse Resp BP Pulse Ox 98.2 F 90 20 136/76 91 09/23/19 11:19 09/23/19 11:19 09/23/19 11:19 09/23/19 11:19 09/23/19 11:19 General appearance: Present: mild distress, obese Results - Labs CBC & Chem 7: 09/22/19 19:00 09/22/19 19:00 Labs: Laboratory Last Values WBC 16.2 K/mm3 (4.5-11.0) H 09/22/19 19:00 RBC 3.89 M/mm3 (3.65-5.03) 09/22/19 19:00 Hgb 12.4 gm/dl (11.8-15.2) 09/22/19 19:00 Hct 38.3 % (35.5-45.6) 09/22/19 19:00 MCV 98 fl (84-94) H 09/22/19 19:00 MCH 32 pg (28-32) 09/22/19 19:00 MCHC 32 % (32-34) 09/22/19 19:00 RDW 13.2 % (13.2-15.2) 09/22/19 19:00 Plt Count 445 K/mm3 (140-440) H 09/22/19 19:00 Add Manual Diff Complete 09/22/19 19:00 Total Counted 100 09/22/19 19:00 Seg Neuts % (Manual) 84.0 % (40.0-70.0) H 09/22/19 19:00 Band Neutrophils % 0 % 09/22/19 19:00 Lymphocytes % (Manual) 10.0 % (13.4-35.0) L 09/22/19 19:00 Reactive Lymphs % (Man) 0 % 09/22/19 19:00 Monocytes % (Manual) 6.0 % (0.0-7.3) 09/22/19 19:00 Eosinophils % (Manual) 0 % (0.0-4.3) 09/22/19 19:00 Basophils % (Manual) 0 % (0.0-1.8) 09/22/19 19:00 Metamyelocytes % 0 % 09/22/19 19:00 Myelocytes % 0 % 09/22/19 19:00 Promyelocytes % 0 % 09/22/19 19:00 Blast Cells % 0 % 09/22/19 19:00 Nucleated RBC % Not Reportable 09/22/19 19:00 Seg Neutrophils # Man 13.6 K/mm3 (1.8-7.7) H 09/22/19 19:00 Band Neutrophils # 0.0 K/mm3 09/22/19 19:00 Lymphocytes # (Manual) 1.6 K/mm3 (1.2-5.4) 09/22/19 19:00 Abs React Lymphs (Man) 0.0 K/mm3 09/22/19 19:00 Monocytes # (Manual) 1.0 K/mm3 (0.0-0.8) H 09/22/19 19:00 Eosinophils # (Manual) 0.0 K/mm3 (0.0-0.4) 09/22/19 19:00 Basophils # (Manual) 0.0 K/mm3 (0.0-0.1) 09/22/19 19:00 Metamyelocytes # 0.0 K/mm3 09/22/19 19:00 Myelocytes # 0.0 K/mm3 09/22/19 19:00 Promyelocytes # 0.0 K/mm3 09/22/19 19:00 Blast Cells # 0.0 K/mm3 09/22/19 19:00 WBC Morphology Not Reportable 09/22/19 19:00 Hypersegmented Neuts Not Reportable 09/22/19 19:00 Hyposegmented Neuts Not Reportable 09/22/19 19:00 Hypogranular Neuts Not Reportable 09/22/19 19:00 Smudge Cells Not Reportable 09/22/19 19:00 Toxic Granulation Not Reportable 09/22/19 19:00 Toxic Vacuolation Not Reportable 09/22/19 19:00 Dohle Bodies Not Reportable 09/22/19 19:00 Pelger-Huet Anomaly Not Reportable 09/22/19 19:00 Mili Rods Not Reportable 09/22/19 19:00 Platelet Estimate Not Reportable 09/22/19 19:00 Clumped Platelets Not Reportable 09/22/19 19:00 Plt Clumps, EDTA Not Reportable 09/22/19 19:00 Large Platelets Not Reportable 09/22/19 19:00 Giant Platelets Not Reportable 09/22/19 19:00 Platelet Satelliting Not Reportable 09/22/19 19:00 Plt Morphology Comment Not Reportable 09/22/19 19:00 RBC Morphology Normal 09/22/19 19:00 Dimorphic RBCs Not Reportable 09/22/19 19:00 Polychromasia Not Reportable 09/22/19 19:00 Hypochromasia Not Reportable 09/22/19 19:00 Poikilocytosis Not Reportable 09/22/19 19:00 Anisocytosis Not Reportable 09/22/19 19:00 Microcytosis Not Reportable 09/22/19 19:00 Macrocytosis Not Reportable 09/22/19 19:00 Spherocytes Not Reportable 09/22/19 19:00 Pappenheimer Bodies Not Reportable 09/22/19 19:00 Sickle Cells Not Reportable 09/22/19 19:00 Target Cells Not Reportable 09/22/19 19:00 Tear Drop Cells Not Reportable 09/22/19 19:00 Ovalocytes Not Reportable 09/22/19 19:00 Helmet Cells Not Reportable 09/22/19 19:00 Hfuf-[place] Bodies Not Reportable 09/22/19 19:00 [place] Rings Not Reportable 09/22/19 19:00 Al Cells Not Reportable 09/22/19 19:00 Bite Cells Not Reportable 09/22/19 19:00 Crenated Cell Not Reportable 09/22/19 19:00 Elliptocytes Not Reportable 09/22/19 19:00 Acanthocytes (Spur) Not Reportable 09/22/19 19:00 Rouleaux Not Reportable 09/22/19 19:00 Hemoglobin C Crystals Not Reportable 09/22/19 19:00 Schistocytes Not Reportable 09/22/19 19:00 Malaria parasites Not Reportable 09/22/19 19:00 Nicholas Bodies Not Reportable 09/22/19 19:00 Hem Pathologist Commnt No 09/22/19 19:00 PT 14.8 Sec. (12.2-14.9) 09/22/19 19:00 INR 1.17 (0.87-1.13) H 09/22/19 19:00 VBG pH 7.354 (7.320-7.420) 09/22/19 19:00 Sodium 124 mmol/L (137-145) L 09/22/19 19:00 Potassium 4.4 mmol/L (3.6-5.0) 09/22/19 19:00 Chloride 81.8 mmol/L (98-107) L 09/22/19 19:00 Carbon Dioxide 20 mmol/L (22-30) L 09/22/19 19:00 Anion Gap 27 mmol/L 09/22/19 19:00 BUN 20 mg/dL (9-20) 09/22/19 19:00 Creatinine 1.3 mg/dL (0.8-1.5) 09/22/19 19:00 Estimated GFR 59 ml/min 09/22/19 19:00 BUN/Creatinine Ratio 15 % 09/22/19 19:00 Glucose 687 mg/dL (75-100) H* 09/22/19 19:00 POC Glucose 354 (70-105) H 09/23/19 06:24 Lactic Acid 1.20 mmol/L (0.7-2.0) 09/23/19 04:26 Calcium 9.2 mg/dL (8.4-10.2) 09/22/19 19:00 Total Bilirubin 0.40 mg/dL (0.1-1.2) 09/22/19 19:00 AST 51 units/L (5-40) H 09/22/19 19:00 ALT 48 units/L (7-56) 09/22/19 19:00 Alkaline Phosphatase 128 units/L (35-129) 09/22/19 19:00 Total Protein 7.9 g/dL (6.3-8.2) 09/22/19 19:00 Albumin 2.3 g/dL (3.9-5) L 09/22/19 19:00 Albumin/Globulin Ratio 0.4 % 09/22/19 19:00 Urine Color Yellow (Yellow) 09/23/19 Unknown Urine Turbidity Clear (Clear) 09/23/19 Unknown Urine pH 6.0 (5.0-7.0) 09/23/19 Unknown Ur Specific [place] 1.035 (1.003-1.030) H 09/23/19 Unknown Urine Protein 30 mg/dl mg/dL (Negative) 09/23/19 Unknown Urine Glucose (UA) >=500 mg/dL (Negative) 09/23/19 Unknown Urine Ketones Neg mg/dL (Negative) 09/23/19 Unknown Urine Blood Sm (Negative) 09/23/19 Unknown Urine Nitrite Neg (Negative) 09/23/19 Unknown Urine Bilirubin Neg (Negative) 09/23/19 Unknown Urine Urobilinogen < 2.0 mg/dL (<2.0) 09/23/19 Unknown Ur Leukocyte Esterase Neg (Negative) 09/23/19 Unknown Urine WBC (Auto) 1.0 /HPF (0.0-6.0) 09/23/19 Unknown Urine RBC (Auto) 2.0 /HPF (0.0-6.0) 09/23/19 Unknown Active Medications - Current Medications Current Medications: Generic Name Dose Route Start Last Admin Trade Name Freq PRN Reason Stop Dose Admin Acetaminophen 650 mg 09/22/19 23:43 Tylenol PO Q4H PRN Pain MILD(1-3)/Fever >100.5/SALINAS Albuterol 2.5 mg 09/22/19 23:43 Proventil IH Q4HRT PRN Shortness Of Breath Amlodipine Besylate 10 mg 09/23/19 10:00 Amlodipine PO DAILY KAREN Dextrose 0 ml 09/22/19 23:45 D50w (25gm) Syringe IV Q30MIN PRN Hypoglycemia Protocol Hydromorphone HCl 0.5 mg 09/23/19 12:20 Dilaudid IV Q10MIN PRN Pain , Severe (7-10) Vancomycin HCl 2,000 mg/ 540 mls @ 250 mls/hr 09/23/19 08:00 Sodium Chloride IV Q12H KAREN Cefazolin Sodium 2 gm/ Sodium 100 mls @ 200 mls/hr 09/23/19 06:00 09/23/19 05:52 Chloride IV 200 mls/hr Q8HR KAREN Administration Protocol Sodium Chloride 1,000 mls @ 150 mls/hr 09/23/19 11:30 Nacl 0.9% 1000 Ml IV DIRECT KAREN Insulin Human Lispro 0 unit 09/23/19 00:00 09/23/19 11:40 Humalog SUB-Q 8 unit Q6HR KAREN Administration Protocol Morphine Sulfate 4 mg 09/23/19 12:08 Morphine IV Q3H PRN Pain, Moderate (4-6) Ondansetron HCl 4 mg 09/22/19 23:43 Zofran IV Q8H PRN Nausea And Vomiting Sodium Chloride 10 ml 09/23/19 10:00 09/23/19 10:54 Sodium Chloride Flush Syringe 10 Ml IV 10 ml BID KAREN Administration Sodium Chloride 10 ml 09/22/19 23:43 Sodium Chloride Flush Syringe 10 Ml IV PRN PRN LINE FLUSH
[2019-09-23] MEDS ORDERED: HYDROmorphone 1 MG/1 ML INJ IV PRN (12:30)
[2019-09-23] MEDS ORDERED: SODIUM HYPOCHLORITE, DAKIN'S 1/2 STRENGTH (0.25%) 473 ML TOPICAL SOLN TP ONE (12:33)
--- NOTE | 2019-09-23 12:57 | Post Operative Note ---
Date of procedure: 09/23/19 (dictation:[id number]) Pre-op diagnosis: left buttock abscess Post-op diagnosis: same Findings: extensive liquified necrosis of skin and portion of subq Procedure: I&D with debridement of left buttock abscess IVF 800cc EBL ~100cc Anesthesia: LLOYDA Surgeon: PAO BANERJEE Estimated blood loss: 50-100ml Pathology: list (abscess cultures) Specimen disposition: to lab Condition: stable Disposition: PACU
--- NOTE | 2019-09-23 13:49 | Post Anesthesia Evaluation ---
- Post Anesthesia Evaluation Patient Participated: Yes Airway Patent: Yes Stable Respiratory Function: Yes Nausea/Vomiting: No Temp > 96.8F: Yes Pain Manageable: Yes Adequeate Hydration: Yes Anesthesia Complications: No
[2019-09-23] MEDS: SODIUM CHLORIDE 0.9% 1000 ML 1,000 ML IV SCH (14:04)
[2019-09-23] MEDS: VANCOMYCIN 2,000 MG in SODIUM CHLORIDE 0.9% 500 ML 500 ML IV SCH (14:04)
[2019-09-23] MEDS: MORPHINE 2 MG/1 ML INJ IV PRN ×2 (17:06→20:05)
--- NOTE | 2019-09-23 18:38 | Operative Report ---
PREOPERATIVE DIAGNOSIS: Left buttock abscess. POSTOPERATIVE DIAGNOSIS: Left buttock abscess. PROCEDURE: Incision, drainage, and debridement of left buttock abscess. ATTENDING PHYSICIAN: Salome Reilly MD. ANESTHESIA: General. ESTIMATED BLOOD LOSS: 50 mL. FLUIDS: 800 mL. FINDINGS: Extensive liquefactive necrosis of the skin and subcutaneous tissue. No obvious involvement of the underlying fascia or musculature. Infection extended all the way towards the perianal area. I did not see any obvious communication with the anus itself. SPECIMENS: Culture swabs were taken. DRAINS: None. DISPOSITION: Stable, transferred to Recovery Room. INDICATIONS: This is a 48-year-old male, who presented with a 1-week history of progressively worsening pain and redness in the left buttock. On arrival, his blood sugars were over 600. The patient denied any fevers, chills, nausea, or vomiting. The patient was assessed to be in need for operative incision, drainage, and debridement. Procedure, risks, and benefits were explained to the patient. Risks included, but were not limited to, infection, bleeding, pain, injury to surrounding structures, and possible need for further procedures in the future. The patient understood and consented. OPERATIVE NOTE: The patient was brought to the operating room and placed on the table in supine position. After adequate general anesthesia was established, the patient was placed in a left lateral decubitus position. The pressure points were padded. Axillary roll was placed. Sterile prep and drape was performed. Time-out was done. SCDs were in place. Antibiotics had already been given. The patient had an approximately 2 cm area of skin that was almost completely necrosed. I began there by incising at that location. Purulent material began coming out. It was very foul smelling. Cultures were obtained. I probed the wound with my finger and opened up the wound based on the extent of the cavity. This was done with a combination of electrocautery and sharp dissection. We ultimately ended up excising all of the necrotic tissue. There was a large amount of liquefactive necrosis of the subcutaneous tissue, all of that was excised. I would say we got at least 98% of all the necrotic tissue out. There were some small superficial areas that remained. The infection did not cross the midline. Wound was then thoroughly washed out with pulse lavage. It looked much better at the end. The dimensions of the wound at the end were [id number] Wound was packed with a Dakin-soaked Kerlix. He was quarter strength. Skin was cleaned and dried. Dressings were placed. The patient tolerated the procedure well. There were no complications. All counts were correct at the end of the case. JOB# [id number] ZACHARY/ZEE KNOTT
[2019-09-23] MEDS ORDERED: INSULIN GLARGINE 100 UNITS/ML SUB-Q SCH (22:00)
[2019-09-24] MEDS: SODIUM CHLORIDE 0.9% 1000 ML 1,000 ML IV SCH ×2 (00:11→09:28)
[2019-09-24] MEDS: INSULIN LISPRO 100 UNIT/ML SUB-Q SCH ×6 (00:16→22:02)
[2019-09-24] MEDS: VANCOMYCIN 2,000 MG in SODIUM CHLORIDE 0.9% 500 ML 500 ML IV SCH ×3 (02:10→21:21)
[2019-09-24] MEDS: MORPHINE 2 MG/1 ML INJ IV PRN ×3 (07:25→12:04)
[2019-09-24] MEDS: amLODIPine 10 MG TAB PO SCH (09:29)
--- NOTE | 2019-09-24 10:15 | Consultation ---
History of Present Illness - Reason for Consult Consult date: 09/24/19 - History of Present Illness 48 yo M PMhx obesity, HTN, Dm2 admitted to the hospital due to pain and redness on the left buttock. He notes these symptoms began approximately 1 week prior to admission and have become worse over that time frame. There is a wound in the area which has been draining a foul smelling purulent fluid. He underwent an I&D of nerotic tissue by Dr. Reilly. Febrile once to 100.4 but otherwise afebrile. White count is elevated at 16. Currently receiving vancomycin and cefazolin. Cultures without growth thus far. Imaging personally reviewed: CTAP -L gluteal cellulitis; no necrotizing fasciiitis but some subq air. Review of systems: Bold if positive; otherwise negative GENERAL: fever, chills, weight loss, fatigue, night sweats EYES: blurry vision, eye pain HENT: headache, hearing loss, sore throat, dysphagia, sinus pain CARDIO: chest pain, palpitations, orthopnea PULM: shortness of breath, wheezing, cough, sputum, hemoptysis GI: nausea, vomiting, diarrhea, abdominal pain, blood in stool : urinary frequency, urgency, dysuria, urethral discharge MSK: joint pain, back pain, swelling SKIN: rash, redness HEME: easy bruising, bleeding Past History Past Medical History: other (see hpi) Past Surgical History: No surgical history, Other (reviewed) Social history: single. denies: smoking, alcohol abuse, prescription drug abuse Family history: diabetes, hypertension Medications and Allergies Allergies Allergy/AdvReac Type Severity Reaction Status Date / Time No Known Allergies Allergy Unverified 09/22/19 18:50 Home Medications Medication Instructions Recorded Confirmed Last Taken Type amLODIPine 1 tab PO DAILY 09/22/19 09/22/19 Unknown History metFORMIN [Glucophage] 1 tab PO DAILY 09/22/19 09/22/19 Unknown History Active Meds: Active Medications Acetaminophen (Tylenol) 650 mg PO Q4H PRN PRN Reason: Pain MILD(1-3)/Fever >100.5/SALINAS Albuterol (Proventil) 2.5 mg IH Q4HRT PRN PRN Reason: Shortness Of Breath Amlodipine Besylate (Amlodipine) 10 mg PO DAILY KAREN Last Admin: 09/24/19 09:29 Dose: 10 mg Documented by: Dextrose (D50w (25gm) Syringe) 0 ml IV Q30MIN PRN; Protocol PRN Reason: Hypoglycemia Vancomycin HCl 2,000 mg/ (Sodium Chloride) 540 mls @ 250 mls/hr IV Q12H [facility] Last Admin: 09/24/19 02:10 Dose: 250 mls/hr Documented by: Cefazolin Sodium 2 gm/ Sodium (Chloride) 100 mls @ 200 mls/hr IV Q8HR KAREN; Protocol Last Admin: 09/24/19 07:08 Dose: 200 mls/hr Documented by: Sodium Chloride (Nacl 0.9% 1000 Ml) 1,000 mls @ 150 mls/hr IV DIRECT KAREN Last Admin: 09/24/19 09:28 Dose: 150 mls/hr Documented by: Insulin Glargine (Lantus) 40 units SUB-Q QHS KAREN Last Admin: 09/23/19 22:00 Dose: 40 units Documented by: Insulin Human Lispro (Humalog) 0 unit SUB-Q Q6HR KAREN; Protocol Last Admin: 09/24/19 05:49 Dose: 8 unit Documented by: Morphine Sulfate (Morphine) 4 mg IV Q3H PRN PRN Reason: Pain , Severe (7-10) Last Admin: 09/24/19 07:25 Dose: 4 mg Documented by: Ondansetron HCl (Zofran) 4 mg IV Q8H PRN PRN Reason: Nausea And Vomiting Sodium Chloride (Sodium Chloride Flush Syringe 10 Ml) 10 ml IV BID [facility] Last Admin: 09/23/19 10:54 Dose: 10 ml Documented by: Sodium Chloride (Sodium Chloride Flush Syringe 10 Ml) 10 ml IV PRN PRN PRN Reason: LINE FLUSH Sodium Hypochlorite (Dakin's Half Strength) 1 applic TP DAILY [facility] Physical Examination - Physical Exam Narrative exam: General Normal appearance, well developed, no acute distress Eyes - PERRLA, EOM intact ENT - Moist mucous membranes, no lymphadenopathy Neck - No noticeable or palpable swelling, redness or rash around throat or on face Lymph Nodes - No lymphadenopathy Cardiovascular - RRR no m/r/g, no JVD, no carotid bruits Lungs - Clear to auscultation, no use of accessory muscles, no crackles or wheezes. Skin - No rashes, skin warm and dry, no erythematous areas Abdomen - Normal bowel sounds, abdomen soft and nontender Extremities - No edema, cyanosis or clubbing Musculoskeletal - 5/5 strength, normal range of motion, no swollen or erythematous joints.. Buttock with surgical dressing. Neurological Alert and oriented x 3, CN 2-12 grossly intact. - Constitutional Vitals: Vital Signs Temp Pulse Resp BP Pulse Ox 99.5 F 87 20 137/72 94 09/24/19 07:55 09/24/19 09:29 09/24/19 07:55 09/24/19 09:29 09/24/19 08:27 Temperature -Last 24 Hours Temperature 99.5 F Temperature 98.7 F Temperature 99.7 F Temperature 100.4 F Temperature 97.6 F Temperature 97.6 F Temperature 98.8 F Temperature 98.7 F Temperature 98.2 F Results - Labs CBC & Chem 7: 09/22/19 19:00 09/22/19 19:00 Labs: Abnormal lab results 09/23/19 09/23/19 09/24/19 Range/Units 13:58 17:39 00:08 POC Glucose 274 H 383 H 361 H (70-105) 09/24/19 Range/Units 05:53 POC Glucose 337 H (70-105) Assessment and Plan Cultures Blood culture 09/22/2019 no growth to date Wound culture 09/23/2019 no growth to date Assessment: 48 yo M PMhx obesity, DM2 admitted for severe soft tissue infection of the buttock. 1. Acute sepsis - present with fever and leukocytosis. Secondary to necrotizing soft tissue infection 2. Necrotizing cellulitis - s/p debridement. Would stop cefazolin and add clindamycin for 3 days, and add cefepime. Can add metronidazole after clindamycin is stopped. 3. DM2 - recommend tight glycemic control for improved wound healing Recs: - continue vancomyucin with PK dosing. Goal trough 10-20. - stop cefazolin - Start clindamycin q8h for 3 days - start cefepime 2g q8h - follow up cultures Dr. Samuel will be taking over tomorrow. Thank you for the consult, we will continue to follow. Timmy [facility] M: [phone] O: [phone] F: [phone]
--- NOTE | 2019-09-24 12:24 | Progress Note ---
Assessment and Plan Assessment and plan: 48-year-old man with diabetes who presents to the hospital with left buttock swelling and pain. He then had a break in his skin and it was draining foul- smelling liquid Diagnosis Sepsis -Continue sepsis protocol, continue antibiotics, ID consult appreciated Left buttock abscess Status post I&D by general surgery, continue local wound care, follow-up with surgical cultures -Uncontrolled diabetes with persistent hyperglycemia -Optimize insulins Hypertension continue BP meds Pain control; continue pain medications severe malnutrition, albumin 2.3 History Interval history: Complaining of left buttock pain which is severe. Review of systems Constitutional: No fevers, no malaise, no joint pains CVS: No chest pain, no orthopnea, no pedal edema GI: No abdominal pain, no diarrhea, no vomiting, no constipation Respiratory: , no wheezing, no coughing Hospitalist Physical - Physical exam Narrative exam: General.: Appears well, no distress, nontoxic HEENT: Moist mucous membranes, extraocular muscles intact, no lymphadenopathy Neck: supple Cardiac: S1-S2 heard Lungs: clear to auscultation bilaterally Abdomen: soft , nontender, nondistended, bowel sounds positive Extremities: no edema clubbing or cyanosis Skin: Left buttock postsurgical dressing was not removed. Foul-smelling Neurologic: no gross focal deficits Psych: calm, and cooperative - Constitutional Vitals: Temp Pulse Resp BP Pulse Ox 99.5 F 87 20 137/72 94 09/24/19 07:55 09/24/19 09:29 09/24/19 07:55 09/24/19 09:29 09/24/19 08:27 General appearance: Present: mild distress, obese Results - Labs CBC & Chem 7: 09/22/19 19:00 09/22/19 19:00 Labs: Laboratory Last Values WBC 16.2 K/mm3 (4.5-11.0) H 09/22/19 19:00 RBC 3.89 M/mm3 (3.65-5.03) 09/22/19 19:00 Hgb 12.4 gm/dl (11.8-15.2) 09/22/19 19:00 Hct 38.3 % (35.5-45.6) 09/22/19 19:00 MCV 98 fl (84-94) H 09/22/19 19:00 MCH 32 pg (28-32) 09/22/19 19:00 MCHC 32 % (32-34) 09/22/19 19:00 RDW 13.2 % (13.2-15.2) 09/22/19 19:00 Plt Count 445 K/mm3 (140-440) H 09/22/19 19:00 Add Manual Diff Complete 09/22/19 19:00 Total Counted 100 09/22/19 19:00 Seg Neuts % (Manual) 84.0 % (40.0-70.0) H 09/22/19 19:00 Band Neutrophils % 0 % 09/22/19 19:00 Lymphocytes % (Manual) 10.0 % (13.4-35.0) L 09/22/19 19:00 Reactive Lymphs % (Man) 0 % 09/22/19 19:00 Monocytes % (Manual) 6.0 % (0.0-7.3) 09/22/19 19:00 Eosinophils % (Manual) 0 % (0.0-4.3) 09/22/19 19:00 Basophils % (Manual) 0 % (0.0-1.8) 09/22/19 19:00 Metamyelocytes % 0 % 09/22/19 19:00 Myelocytes % 0 % 09/22/19 19:00 Promyelocytes % 0 % 09/22/19 19:00 Blast Cells % 0 % 09/22/19 19:00 Nucleated RBC % Not Reportable 09/22/19 19:00 Seg Neutrophils # Man 13.6 K/mm3 (1.8-7.7) H 09/22/19 19:00 Band Neutrophils # 0.0 K/mm3 09/22/19 19:00 Lymphocytes # (Manual) 1.6 K/mm3 (1.2-5.4) 09/22/19 19:00 Abs React Lymphs (Man) 0.0 K/mm3 09/22/19 19:00 Monocytes # (Manual) 1.0 K/mm3 (0.0-0.8) H 09/22/19 19:00 Eosinophils # (Manual) 0.0 K/mm3 (0.0-0.4) 09/22/19 19:00 Basophils # (Manual) 0.0 K/mm3 (0.0-0.1) 09/22/19 19:00 Metamyelocytes # 0.0 K/mm3 09/22/19 19:00 Myelocytes # 0.0 K/mm3 09/22/19 19:00 Promyelocytes # 0.0 K/mm3 09/22/19 19:00 Blast Cells # 0.0 K/mm3 09/22/19 19:00 WBC Morphology Not Reportable 09/22/19 19:00 Hypersegmented Neuts Not Reportable 09/22/19 19:00 Hyposegmented Neuts Not Reportable 09/22/19 19:00 Hypogranular Neuts Not Reportable 09/22/19 19:00 Smudge Cells Not Reportable 09/22/19 19:00 Toxic Granulation Not Reportable 09/22/19 19:00 Toxic Vacuolation Not Reportable 09/22/19 19:00 Dohle Bodies Not Reportable 09/22/19 19:00 Pelger-Huet Anomaly Not Reportable 09/22/19 19:00 Mili Rods Not Reportable 09/22/19 19:00 Platelet Estimate Not Reportable 09/22/19 19:00 Clumped Platelets Not Reportable 09/22/19 19:00 Plt Clumps, EDTA Not Reportable 09/22/19 19:00 Large Platelets Not Reportable 09/22/19 19:00 Giant Platelets Not Reportable 09/22/19 19:00 Platelet Satelliting Not Reportable 09/22/19 19:00 Plt Morphology Comment Not Reportable 09/22/19 19:00 RBC Morphology Normal 09/22/19 19:00 Dimorphic RBCs Not Reportable 09/22/19 19:00 Polychromasia Not Reportable 09/22/19 19:00 Hypochromasia Not Reportable 09/22/19 19:00 Poikilocytosis Not Reportable 09/22/19 19:00 Anisocytosis Not Reportable 09/22/19 19:00 Microcytosis Not Reportable 09/22/19 19:00 Macrocytosis Not Reportable 09/22/19 19:00 Spherocytes Not Reportable 09/22/19 19:00 Pappenheimer Bodies Not Reportable 09/22/19 19:00 Sickle Cells Not Reportable 09/22/19 19:00 Target Cells Not Reportable 09/22/19 19:00 Tear Drop Cells Not Reportable 09/22/19 19:00 Ovalocytes Not Reportable 09/22/19 19:00 Helmet Cells Not Reportable 09/22/19 19:00 [place] Bodies Not Reportable 09/22/19 19:00 [place] Rings Not Reportable 09/22/19 19:00 Al Cells Not Reportable 09/22/19 19:00 Bite Cells Not Reportable 09/22/19 19:00 Crenated Cell Not Reportable 09/22/19 19:00 Elliptocytes Not Reportable 09/22/19 19:00 Acanthocytes (Spur) Not Reportable 09/22/19 19:00 Rouleaux Not Reportable 09/22/19 19:00 Hemoglobin C Crystals Not Reportable 09/22/19 19:00 Schistocytes Not Reportable 09/22/19 19:00 Malaria parasites Not Reportable 09/22/19 19:00 Nicholas Bodies Not Reportable 09/22/19 19:00 Hem Pathologist Commnt No 09/22/19 19:00 PT 14.8 Sec. (12.2-14.9) 09/22/19 19:00 INR 1.17 (0.87-1.13) H 09/22/19 19:00 VBG pH 7.354 (7.320-7.420) 09/22/19 19:00 Sodium 124 mmol/L (137-145) L 09/22/19 19:00 Potassium 4.4 mmol/L (3.6-5.0) 09/22/19 19:00 Chloride 81.8 mmol/L (98-107) L 09/22/19 19:00 Carbon Dioxide 20 mmol/L (22-30) L 09/22/19 19:00 Anion Gap 27 mmol/L 09/22/19 19:00 BUN 20 mg/dL (9-20) 09/22/19 19:00 Creatinine 1.3 mg/dL (0.8-1.5) 09/22/19 19:00 Estimated GFR 59 ml/min 09/22/19 19:00 BUN/Creatinine Ratio 15 % 09/22/19 19:00 Glucose 687 mg/dL (75-100) H* 09/22/19 19:00 POC Glucose 404 (70-105) H 09/24/19 11:51 Lactic Acid 1.20 mmol/L (0.7-2.0) 09/23/19 04:26 Calcium 9.2 mg/dL (8.4-10.2) 09/22/19 19:00 Total Bilirubin 0.40 mg/dL (0.1-1.2) 09/22/19 19:00 AST 51 units/L (5-40) H 09/22/19 19:00 ALT 48 units/L (7-56) 09/22/19 19:00 Alkaline Phosphatase 128 units/L (35-129) 09/22/19 19:00 Total Protein 7.9 g/dL (6.3-8.2) 09/22/19 19:00 Albumin 2.3 g/dL (3.9-5) L 09/22/19 19:00 Albumin/Globulin Ratio 0.4 % 09/22/19 19:00 Urine Color Yellow (Yellow) 09/23/19 Unknown Urine Turbidity Clear (Clear) 09/23/19 Unknown Urine pH 6.0 (5.0-7.0) 09/23/19 Unknown Ur Specific [place] 1.035 (1.003-1.030) H 09/23/19 Unknown Urine Protein 30 mg/dl mg/dL (Negative) 09/23/19 Unknown Urine Glucose (UA) >=500 mg/dL (Negative) 09/23/19 Unknown Urine Ketones Neg mg/dL (Negative) 09/23/19 Unknown Urine Blood Sm (Negative) 09/23/19 Unknown Urine Nitrite Neg (Negative) 09/23/19 Unknown Urine Bilirubin Neg (Negative) 09/23/19 Unknown Urine Urobilinogen < 2.0 mg/dL (<2.0) 09/23/19 Unknown Ur Leukocyte Esterase Neg (Negative) 09/23/19 Unknown Urine WBC (Auto) 1.0 /HPF (0.0-6.0) 09/23/19 Unknown Urine RBC (Auto) 2.0 /HPF (0.0-6.0) 09/23/19 Unknown Active Medications - Current Medications Current Medications: Generic Name Dose Route Start Last Admin Trade Name Freq PRN Reason Stop Dose Admin Acetaminophen 650 mg 09/22/19 23:43 Tylenol PO Q4H PRN Pain MILD(1-3)/Fever >100.5/SALINAS Albuterol 2.5 mg 09/22/19 23:43 Proventil IH Q4HRT PRN Shortness Of Breath Amlodipine Besylate 10 mg 09/23/19 10:00 09/24/19 09:29 Amlodipine PO 10 mg DAILY KAREN Administration Dextrose 0 ml 09/22/19 23:45 D50w (25gm) Syringe IV Q30MIN PRN Hypoglycemia Protocol Vancomycin HCl 2,000 mg/ 540 mls @ 250 mls/hr 09/23/19 08:00 09/24/19 02:10 Sodium Chloride IV 250 mls/hr Q12H KAREN Administration Sodium Chloride 1,000 mls @ 150 mls/hr 09/23/19 11:30 09/24/19 09:28 Nacl 0.9% 1000 Ml IV 150 mls/hr DIRECT KAREN Administration Cefepime HCl 2 gm in 100 mls @ 200 mls/hr 09/24/19 14:00 Cefepime/Ns 2 Gm/100 Ml IV Q8HR [facility] Protocol Clindamycin HCl 900 mg in 50 mls @ 100 mls/hr 09/24/19 14:00 Cleocin 900 Mg/50 Ml IV 09/27/19 13:59 Q8HR [facility] Protocol Insulin Glargine 30 units 09/24/19 12:00 Lantus SUB-Q Q12HR KAREN Insulin Human Lispro 0 unit 09/23/19 00:00 09/24/19 05:49 Humalog SUB-Q 8 unit Q6HR [facility] Administration Protocol Insulin Human Lispro 5 unit 09/24/19 11:30 Humalog SUB-Q AC [facility] Morphine Sulfate 4 mg 09/23/19 12:08 09/24/19 12:04 Morphine IV 4 mg Q3H PRN Administration Pain , Severe (7-10) Ondansetron HCl 4 mg 09/22/19 23:43 Zofran IV Q8H PRN Nausea And Vomiting Sodium Chloride 10 ml 09/23/19 10:00 09/24/19 10:30 Sodium Chloride Flush Syringe 10 Ml IV Not Given BID KAREN Sodium Chloride 10 ml 09/22/19 23:43 Sodium Chloride Flush Syringe 10 Ml IV PRN PRN LINE FLUSH Sodium Hypochlorite 1 applic 09/24/19 10:00 Dakin's Half Strength TP DAILY KAREN
[2019-09-24] MEDS: SODIUM HYPOCHLORITE, DAKIN'S 1/2 STRENGTH (0.25%) 473 ML TOPICAL SOLN TP SCH (12:40)
[2019-09-24] MEDS: oxyCODONE /ACETAMINOPHEN 5-325MG TAB PO PRN ×2 (12:54→21:10)
--- NOTE | 2019-09-24 13:54 | Progress Note ---
Assessment and Plan - Patient Problems (1) Left buttock abscess Current Visit: Yes Status: Acute Plan to address problem: Pt stable. s/p left buttock I&D, debridement - 09/23 - POD#1. Wound looks much better. Wound care nurse to see tomorrow. Await their recommendations. Continue daily dressing changes with Dakin's solution for now. I did discuss with him that we may need to go back to the operating room to do further debridement. I would like to see how the wound progresses over the next few days. Patient understood. Dressing changed at bedside this morning. Please call with questions. Subjective Date of service: 09/24/19 Patient Reports: Positive: no new complaints, still having pain (in left buttock) Objective Vital Signs - 12hr 09/24/19 09/24/19 09/24/19 04:43 07:25 07:55 Temperature 98.7 F 99.5 F Pulse Rate 86 87 Respiratory 17 20 20 Rate Blood Pressure 101/43 137/72 O2 Sat by Pulse 93 96 Oximetry 09/24/19 09/24/19 09/24/19 08:27 09:29 12:42 Temperature 98.7 F Pulse Rate 87 87 Respiratory 20 Rate Blood Pressure 137/72 80/35 O2 Sat by Pulse 94 95 Oximetry - General physical appearance no distress, no pain, obese, other (looks well) - Respiratory normal expansion, normal respiratory effort - Integumentary other (left buttock wound much janitor and cleaner than yesterday before debridement. Still some areas of necrotic/fibrinous tissue. ) - Psychiatric oriented to time, oriented to person, oriented to place, speech is normal, memory intact - Labs 09/22/19 19:00 09/22/19 19:00
[2019-09-24] MEDS: INSULIN GLARGINE 100 UNITS/ML SUB-Q SCH ×2 (14:26→22:03)
[2019-09-24] MEDS: CEFEPIME/NS 2 GM/100 ML 2 GM/100 ML BAG IV SCH ×2 (16:58→21:18)
[2019-09-25] MEDS: HYDROmorphone 1 MG/1 ML INJ IV PRN ×2 (04:58→14:20)
[2019-09-25] MEDS: CEFEPIME/NS 2 GM/100 ML 2 GM/100 ML BAG IV SCH ×3 (05:32→21:25)
[2019-09-25] MEDS: oxyCODONE /ACETAMINOPHEN 5-325MG TAB PO PRN ×2 (06:20→21:45)
[2019-09-25] MEDS: INSULIN LISPRO 100 UNIT/ML SUB-Q SCH ×7 (08:28→22:05)
[2019-09-25] MEDS: INSULIN GLARGINE 100 UNITS/ML SUB-Q SCH ×2 (09:09→21:27)
[2019-09-25] MEDS: amLODIPine 10 MG TAB PO SCH (09:09)
--- NOTE | 2019-09-25 10:08 | Progress Note ---
Assessment and Plan Assessment and plan: 48-year-old man with diabetes who presents to the hospital with left buttock swelling and pain. He then had a break in his skin and it was draining foul- smelling liquid Diagnosis Sepsis -Continue sepsis protocol, continue antibiotics, ID consult appreciated -Gram-positive bacteremia, discussed with ID, repeat cultures ordered, echo ordered Left buttock abscess Status post I&D by general surgery on 09/23, continue local wound care, follow- up with surgical cultures -Case discussed with general surgeon, patient will likely need further debridements, they will follow along and decide based on how patient progresses -Uncontrolled diabetes with persistent hyperglycemia -Optimize insulins Hypertension continue BP meds Pain control; continue pain medications severe malnutrition, albumin 2.3 Dietitian consult DVT prophylaxis Lovenox Preventative health counseling performed for 17 minutes History Interval history: Complaining of left buttock pain which is improved, now moderate Review of systems Constitutional: No fevers, no malaise, no joint pains CVS: No chest pain, no orthopnea, no pedal edema GI: No abdominal pain, no diarrhea, no vomiting, no constipation Respiratory: , no wheezing, no coughing Hospitalist Physical - Physical exam Narrative exam: General.: Appears well, no distress, nontoxic HEENT: Moist mucous membranes, extraocular muscles intact, no lymphadenopathy Neck: supple Cardiac: S1-S2 heard Lungs: clear to auscultation bilaterally Abdomen: soft , nontender, nondistended, bowel sounds positive Extremities: no edema clubbing or cyanosis Skin: Left buttock postsurgical dressing was not removed. Foul-smelling Neurologic: no gross focal deficits Psych: calm, and cooperative - Constitutional Vitals: Temp Pulse Resp BP Pulse Ox 98.5 F 83 18 140/81 95 09/25/19 07:57 09/25/19 09:09 09/25/19 07:57 09/25/19 09:09 09/25/19 07:57 General appearance: Present: mild distress, obese Results - Labs CBC & Chem 7: 09/22/19 19:00 09/22/19 19:00 Labs: Laboratory Last Values WBC 16.2 K/mm3 (4.5-11.0) H 09/22/19 19:00 RBC 3.89 M/mm3 (3.65-5.03) 09/22/19 19:00 Hgb 12.4 gm/dl (11.8-15.2) 09/22/19 19:00 Hct 38.3 % (35.5-45.6) 09/22/19 19:00 MCV 98 fl (84-94) H 09/22/19 19:00 MCH 32 pg (28-32) 09/22/19 19:00 MCHC 32 % (32-34) 09/22/19 19:00 RDW 13.2 % (13.2-15.2) 09/22/19 19:00 Plt Count 445 K/mm3 (140-440) H 09/22/19 19:00 Add Manual Diff Complete 09/22/19 19:00 Total Counted 100 09/22/19 19:00 Seg Neuts % (Manual) 84.0 % (40.0-70.0) H 09/22/19 19:00 Band Neutrophils % 0 % 09/22/19 19:00 Lymphocytes % (Manual) 10.0 % (13.4-35.0) L 09/22/19 19:00 Reactive Lymphs % (Man) 0 % 09/22/19 19:00 Monocytes % (Manual) 6.0 % (0.0-7.3) 09/22/19 19:00 Eosinophils % (Manual) 0 % (0.0-4.3) 09/22/19 19:00 Basophils % (Manual) 0 % (0.0-1.8) 09/22/19 19:00 Metamyelocytes % 0 % 09/22/19 19:00 Myelocytes % 0 % 09/22/19 19:00 Promyelocytes % 0 % 09/22/19 19:00 Blast Cells % 0 % 09/22/19 19:00 Nucleated RBC % Not Reportable 09/22/19 19:00 Seg Neutrophils # Man 13.6 K/mm3 (1.8-7.7) H 09/22/19 19:00 Band Neutrophils # 0.0 K/mm3 09/22/19 19:00 Lymphocytes # (Manual) 1.6 K/mm3 (1.2-5.4) 09/22/19 19:00 Abs React Lymphs (Man) 0.0 K/mm3 09/22/19 19:00 Monocytes # (Manual) 1.0 K/mm3 (0.0-0.8) H 09/22/19 19:00 Eosinophils # (Manual) 0.0 K/mm3 (0.0-0.4) 09/22/19 19:00 Basophils # (Manual) 0.0 K/mm3 (0.0-0.1) 09/22/19 19:00 Metamyelocytes # 0.0 K/mm3 09/22/19 19:00 Myelocytes # 0.0 K/mm3 09/22/19 19:00 Promyelocytes # 0.0 K/mm3 09/22/19 19:00 Blast Cells # 0.0 K/mm3 09/22/19 19:00 WBC Morphology Not Reportable 09/22/19 19:00 Hypersegmented Neuts Not Reportable 09/22/19 19:00 Hyposegmented Neuts Not Reportable 09/22/19 19:00 Hypogranular Neuts Not Reportable 09/22/19 19:00 Smudge Cells Not Reportable 09/22/19 19:00 Toxic Granulation Not Reportable 09/22/19 19:00 Toxic Vacuolation Not Reportable 09/22/19 19:00 Dohle Bodies Not Reportable 09/22/19 19:00 Pelger-Huet Anomaly Not Reportable 09/22/19 19:00 Mili Rods Not Reportable 09/22/19 19:00 Platelet Estimate Not Reportable 09/22/19 19:00 Clumped Platelets Not Reportable 09/22/19 19:00 Plt Clumps, EDTA Not Reportable 09/22/19 19:00 Large Platelets Not Reportable 09/22/19 19:00 Giant Platelets Not Reportable 09/22/19 19:00 Platelet Satelliting Not Reportable 09/22/19 19:00 Plt Morphology Comment Not Reportable 09/22/19 19:00 RBC Morphology Normal 09/22/19 19:00 Dimorphic RBCs Not Reportable 09/22/19 19:00 Polychromasia Not Reportable 09/22/19 19:00 Hypochromasia Not Reportable 09/22/19 19:00 Poikilocytosis Not Reportable 09/22/19 19:00 Anisocytosis Not Reportable 09/22/19 19:00 Microcytosis Not Reportable 09/22/19 19:00 Macrocytosis Not Reportable 09/22/19 19:00 Spherocytes Not Reportable 11/29/19 19:00 Pappenheimer Bodies Not Reportable 09/22/19 19:00 Sickle Cells Not Reportable 09/22/19 19:00 Target Cells Not Reportable 09/22/19 19:00 Tear Drop Cells Not Reportable 09/22/19 19:00 Ovalocytes Not Reportable 09/22/19 19:00 Helmet Cells Not Reportable 09/22/19 19:00 [place] Bodies Not Reportable 09/22/19 19:00 [place] Rings Not Reportable 09/22/19 19:00 Al Cells Not Reportable 09/22/19 19:00 Bite Cells Not Reportable 09/22/19 19:00 Crenated Cell Not Reportable 09/22/19 19:00 Elliptocytes Not Reportable 09/22/19 19:00 Acanthocytes (Spur) Not Reportable 09/22/19 19:00 Rouleaux Not Reportable 09/22/19 19:00 Hemoglobin C Crystals Not Reportable 09/22/19 19:00 Schistocytes Not Reportable 09/22/19 19:00 Malaria parasites Not Reportable 09/22/19 19:00 Nicholas Bodies Not Reportable 09/22/19 19:00 Hem Pathologist Commnt No 09/22/19 19:00 PT 14.8 Sec. (12.2-14.9) 09/22/19 19:00 INR 1.17 (0.87-1.13) H 09/22/19 19:00 VBG pH 7.354 (7.320-7.420) 09/22/19 19:00 Sodium 124 mmol/L (137-145) L 09/22/19 19:00 Potassium 4.4 mmol/L (3.6-5.0) 09/22/19 19:00 Chloride 81.8 mmol/L (98-107) L 09/22/19 19:00 Carbon Dioxide 20 mmol/L (22-30) L 09/22/19 19:00 Anion Gap 27 mmol/L 09/22/19 19:00 BUN 20 mg/dL (9-20) 09/22/19 19:00 Creatinine 1.3 mg/dL (0.8-1.5) 09/22/19 19:00 Estimated GFR 59 ml/min 09/22/19 19:00 BUN/Creatinine Ratio 15 % 11/29/19 19:00 Glucose 687 mg/dL (75-100) H* 09/22/19 19:00 POC Glucose 313 (70-105) H 09/24/19 21:41 Lactic Acid 1.20 mmol/L (0.7-2.0) 09/23/19 04:26 Calcium 9.2 mg/dL (8.4-10.2) 09/22/19 19:00 Total Bilirubin 0.40 mg/dL (0.1-1.2) 09/22/19 19:00 AST 51 units/L (5-40) H 09/22/19 19:00 ALT 48 units/L (7-56) 09/22/19 19:00 Alkaline Phosphatase 128 units/L (35-129) 09/22/19 19:00 Total Protein 7.9 g/dL (6.3-8.2) 09/22/19 19:00 Albumin 2.3 g/dL (3.9-5) L 09/22/19 19:00 Albumin/Globulin Ratio 0.4 % 09/22/19 19:00 Urine Color Yellow (Yellow) 09/23/19 Unknown Urine Turbidity Clear (Clear) 09/23/19 Unknown Urine pH 6.0 (5.0-7.0) 09/23/19 Unknown Ur Specific [place] 1.035 (1.003-1.030) H 09/23/19 Unknown Urine Protein 30 mg/dl mg/dL (Negative) 09/23/19 Unknown Urine Glucose (UA) >=500 mg/dL (Negative) 09/23/19 Unknown Urine Ketones Neg mg/dL (Negative) 09/23/19 Unknown Urine Blood Sm (Negative) 09/23/19 Unknown Urine Nitrite Neg (Negative) 09/23/19 Unknown Urine Bilirubin Neg (Negative) 09/23/19 Unknown Urine Urobilinogen < 2.0 mg/dL (<2.0) 09/23/19 Unknown Ur Leukocyte Esterase Neg (Negative) 09/23/19 Unknown Urine WBC (Auto) 1.0 /HPF (0.0-6.0) 09/23/19 Unknown Urine RBC (Auto) 2.0 /HPF (0.0-6.0) 09/23/19 Unknown Vancomycin Trough 14.4 ug/mL (5.0-20.0) 09/25/19 07:26 Active Medications - Current Medications Current Medications: Generic Name Dose Route Start Last Admin Trade Name Freq PRN Reason Stop Dose Admin Acetaminophen 650 mg 09/22/19 23:43 Tylenol PO Q4H PRN Pain MILD(1-3)/Fever >100.5/SALINAS Albuterol 2.5 mg 09/22/19 23:43 Proventil IH Q4HRT PRN Shortness Of Breath Amlodipine Besylate 10 mg 09/23/19 10:00 09/25/19 09:09 Amlodipine PO 10 mg DAILY KAREN Administration Dextrose 0 ml 09/22/19 23:45 D50w (25gm) Syringe IV Q30MIN PRN Hypoglycemia Protocol Hydromorphone HCl 1 mg 09/24/19 18:01 09/25/19 04:58 Dilaudid IV 1 mg Q4H PRN Administration Pain , Severe (7-10) Vancomycin HCl 2,000 mg/ 540 mls @ 250 mls/hr 09/23/19 08:00 09/24/19 21:21 Sodium Chloride IV Not Given Q12H KAREN Cefepime HCl 2 gm in 100 mls @ 200 mls/hr 09/24/19 14:00 09/25/19 05:32 Cefepime/Ns 2 Gm/100 Ml IV 200 mls/hr Q8HR KAREN Administration Protocol Clindamycin HCl 900 mg in 50 mls @ 100 mls/hr 09/24/19 14:00 09/25/19 05:33 Cleocin 900 Mg/50 Ml IV 09/27/19 13:59 100 mls/hr Q8HR KAREN Administration Protocol Insulin Glargine 30 units 09/24/19 12:00 09/25/19 09:09 Lantus SUB-Q 30 units Q12HR KAREN Administration Insulin Human Lispro 5 unit 09/24/19 11:30 09/25/19 09:08 Humalog SUB-Q 5 unit AC KAREN Administration Insulin Human Lispro 0 unit 09/24/19 22:00 09/25/19 08:28 Humalog SUB-Q Not Given ACHS KAREN Protocol Ondansetron HCl 4 mg 09/22/19 23:43 Zofran IV Q8H PRN Nausea And Vomiting Oxycodone/Acetaminophen 2 tab 09/24/19 12:32 09/25/19 06:20 Percocet 5/325 PO 2 tab Q6H PRN Administration Pain, Moderate (4-6) Sodium Chloride 10 ml 09/23/19 10:00 09/24/19 21:19 Sodium Chloride Flush Syringe 10 Ml IV 10 ml BID KAREN Administration Sodium Chloride 10 ml 09/22/19 23:43 Sodium Chloride Flush Syringe 10 Ml IV PRN PRN LINE FLUSH Sodium Hypochlorite 1 applic 09/24/19 10:00 09/24/19 12:40 Dakin's Half Strength TP 1 dose DAILY KAREN Administration
[2019-09-25] MEDS: VANCOMYCIN 2,000 MG in SODIUM CHLORIDE 0.9% 500 ML 500 ML IV SCH ×3 (11:16→21:26)
--- NOTE | 2019-09-25 13:44 | Progress Note ---
Assessment and Plan - Patient Problems (1) Left buttock abscess Current Visit: Yes Status: Acute Plan to address problem: Pt stable. s/p left buttock I&D, debridement - 09/23 - POD#2. Wound care nurse to see today. Await their recommendations. Continue daily dressing changes with Dakin's solution for now. I did discuss with him that we may need to go back to the operating room to do further debridement. I would like to see how the wound progresses over the next few days. Patient understood. Please call with questions. Subjective Date of service: 09/25/19 Patient Reports: Positive: no new complaints, still having pain Objective Vital Signs - 12hr 09/25/19 09/25/19 09/25/19 04:40 07:57 09:09 Temperature 98.1 F 98.5 F Pulse Rate 72 83 83 Respiratory 20 18 Rate Blood Pressure 116/72 140/81 140/81 O2 Sat by Pulse 96 95 Oximetry 09/25/19 10:00 Temperature Pulse Rate Respiratory 18 Rate Blood Pressure O2 Sat by Pulse 95 Oximetry - General physical appearance no distress, no pain, obese - Respiratory normal expansion, normal respiratory effort - Labs 09/22/19 19:00 09/22/19 19:00
[2019-09-25] MEDS: SODIUM HYPOCHLORITE, DAKIN'S 1/2 STRENGTH (0.25%) 473 ML TOPICAL SOLN TP SCH (14:00)
--- NOTE | 2019-09-25 14:20 | Progress Note ---
Assessment and Plan Cultures Blood culture 09/22/2019: GPC Wound culture 09/23/2019: mixed Gram stain Assessment: 48 yo M PMhx obesity, DM2 admitted for severe soft tissue infection of the buttock. # Acute sepsis - present with fever and leukocytosis. Secondary to necrotizing soft tissue infection of the left buttock # Necrotizing cellulitis/infection of left buttock - s/p debridement. Would stop cefazolin and add clindamycin for 3 days, and add cefepime. Can add metronidazole after clindamycin is stopped. # DM2 - recommend tight glycemic control for improved wound healing # GPC bacteremia: secondary to above. Recs: - continue IV vancomycin with PK dosing. Goal trough 10-20. - continue IV clindamycin q8h for 3 days - continue IV cefepime 2g q8h - repeat blood cultures ordered - TTE ordered - additional debridements per Gen Surgery d/w Dr. Adriane Samuel MD, FACP [facility] ([facility]) C: [phone] O: [phone] F: [phone] Subjective Date of service: 09/25/19 Interval history: No fever. Pain in left buttock region +. Tolerating abx well. No rash. Objective - Exam Narrative Exam: Physical Exam: Constitutional: Alert, cooperative. No acute distress. Obese Head, Ears, Nose: Normocephalic, atraumatic. External ears, nose normal Eyes: Conjunctivae/corneas clear. No icterus. No ptosis. Neck: Supple, no meningeal signs Oral: no thrush Cardiovascular: S1, S2 normal. Respiratory: Good air entry, clear to auscultation bilaterally GI: Soft, non-tender; bowel sounds normal. No peritoneal signs Musculoskeletal: Left buttock with dressing, significant tenderness + around it. Skin: No rash or abscess Hem/Lymphatic: No palpable cervical or supraclavicular nodes. No lymphangitis Psych: Mood ok. Affect normal Neurological: Awake, alert, oriented. No gross abnormality - Constitutional Vitals: Vital Signs Temp Pulse Resp BP Pulse Ox 98.5 F 83 18 140/81 95 09/25/19 07:57 09/25/19 09:09 09/25/19 10:00 09/25/19 09:09 09/25/19 10:00 Temperature -Last 24 Hours Temperature 98.5 F Temperature 98.1 F Temperature 98.1 F Temperature 98.1 F Temperature 98.7 F - Labs CBC & Chem 7: 09/22/19 19:00 09/22/19 19:00 Labs: Abnormal lab results 09/23/19 09/24/19 09/24/19 Range/Units 11:20 16:41 19:02 POC Glucose 342 H 267 H (70-105) Vancomycin Trough 25.4 H (5.0-20.0) ug/mL 09/24/19 09/25/19 Range/Units 21:41 13:09 POC Glucose 313 H 269 H (70-105) Vancomycin Trough (5.0-20.0) ug/mL
[2019-09-25] MEDS: ENOXAPARIN 40 MG/0.4 ML INJ SUB-Q SCH (21:27)
[2019-09-26] MEDS ORDERED: SODIUM CHLORIDE 0.9% 250ML 250 ML ONE (05:37)
[2019-09-26] MEDS: HYDROmorphone 1 MG/1 ML INJ IV PRN ×2 (05:41→11:44)
[2019-09-26] MEDS: CEFEPIME/NS 2 GM/100 ML 2 GM/100 ML BAG IV SCH ×3 (06:04→21:20)
[2019-09-26] MEDS: INSULIN LISPRO 100 UNIT/ML SUB-Q SCH ×6 (07:51→16:39)
[2019-09-26] MEDS: oxyCODONE /ACETAMINOPHEN 5-325MG TAB PO PRN ×2 (08:14→18:34)
--- NOTE | 2019-09-26 08:45 | Progress Note ---
Assessment and Plan - Patient Problems (1) Left buttock abscess Current Visit: Yes Status: Acute Plan to address problem: Pt stable. s/p left buttock I&D, debridement - 09/23 - POD#3. Wound in need of further debridement. Procedure, risks, benefits discussed. Consent obtained. Will try to find time in OR in next 1-2 days. Continue current wound care. Please call with questions. Subjective Date of service: 09/26/19 Patient Reports: Positive: no new complaints, other (going for Echo today) Objective Vital Signs - 12hr 09/26/19 09/26/19 00:55 04:41 Temperature 98.0 F 98.0 F Pulse Rate 74 77 Respiratory 18 16 Rate Blood Pressure 113/52 125/68 O2 Sat by Pulse 94 93 Oximetry - General physical appearance no distress, no pain, obese - Respiratory normal expansion, normal respiratory effort - Psychiatric oriented to time, oriented to person, oriented to place, speech is normal, memory intact - Labs 09/22/19 19:00 09/22/19 19:00 Diabetes panel 09/26/19 Range/Units 06:06 Hemoglobin A1c 12.6 H (4-6) %
[2019-09-26 09:02] LABS: Hematocrit 32.4 % (35.5-45.6); Hemoglobin 11.2 gm/dl (11.8-15.2); Mean Corpuscular HGB Conc 35 % (32-34); Mean Corpuscular Volume 94 fl (84-94); Platelet Count 499 K/mm3 (140-440); Red Blood Count 3.44 M/mm3 (3.65-5.03); Red Cell Distribution Width 12.9 % (13.2-15.2)
[2019-09-26 10:22] LABS: BUN/Creatinine Ratio 11; Blood Urea Nitrogen 9 mg/dL (9-20); Calcium 7.5 mg/dL (8.4-10.2); Hemolysis Index 2
[2019-09-26 10:37] LABS: Band Neutrophils # (Manual) 0.2 K/mm3; Basophils % (Manual) 0 % (0.0-1.8); Total Cells Counted 100
[2019-09-26 10:38] LABS: Platelet Estimate Consistent w Auto; RBC Morphology Normal
[2019-09-26] MEDS: SODIUM HYPOCHLORITE, DAKIN'S 1/2 STRENGTH (0.25%) 473 ML TOPICAL SOLN TP SCH (11:04)
[2019-09-26] MEDS: INSULIN GLARGINE 100 UNITS/ML SUB-Q SCH ×2 (11:05→21:21)
[2019-09-26] MEDS: amLODIPine 10 MG TAB PO SCH (11:51)
[2019-09-26] MEDS: VANCOMYCIN 2,000 MG in SODIUM CHLORIDE 0.9% 500 ML 500 ML IV SCH ×2 (11:59→21:20)
--- NOTE | 2019-09-26 14:47 | Progress Note ---
Assessment and Plan Cultures Blood culture 09/22/2019: GPC Wound culture 09/23/2019: mixed Gram stain: culture with just skin christian. 09/25/2019 Blood culture: in process Assessment: 48 yo M PMhx obesity, DM2 admitted for severe soft tissue infection of the buttock. # Acute sepsis - present with fever and leukocytosis. Secondary to necrotizing soft tissue infection of the left buttock # Necrotizing cellulitis/infection of left buttock - s/p debridement. Surgery following. # DM2 - recommend tight glycemic control for improved wound healing # GPC bacteremia: secondary to above. TTE unremarkable for vegetations or valvu lar issues. Recs: - continue IV vancomycin with PK dosing. Goal trough 10-20, plan to d/c if no MRSA - continue IV clindamycin q8h for 3 days total - continue IV cefepime 2g q8h - f/u repeat blood cultures - additional debridement in OR per Gen Surgery Summer Samuel MD, FACP [facility] ([facility]) C: [phone] O: [phone] F: [phone] Subjective Date of service: 09/26/19 Interval history: No fever. Pain in left buttock region + but well controlled. Continues on abx. Eating well. No rash. Objective - Exam Narrative Exam: Physical Exam: Constitutional: Alert, cooperative. No acute distress. Obese Head, Ears, Nose: Normocephalic, atraumatic. External ears, nose normal Eyes: Conjunctivae/corneas clear. No icterus. No ptosis. Neck: Supple, no meningeal signs Oral: no thrush Cardiovascular: S1, S2 normal. Respiratory: Good air entry, clear to auscultation bilaterally GI: Soft, non-tender; bowel sounds normal. No peritoneal signs Musculoskeletal: Left buttock with dressing, with tenderness + around it. Skin: No rash or abscess Hem/Lymphatic: No palpable cervical or supraclavicular nodes. No lymphangitis Psych: Mood ok. Affect normal Neurological: Awake, alert, oriented. No gross abnormality - Constitutional Vitals: Vital Signs Temp Pulse Resp BP Pulse Ox 98.0 F 78 18 135/66 97 09/26/19 11:11 09/26/19 11:51 09/26/19 11:11 09/26/19 11:51 09/26/19 11:11 Temperature -Last 24 Hours Temperature 98.0 F Temperature 98.2 F Temperature 98.0 F Temperature 98.0 F Temperature 99.3 F Temperature 98.6 F - Labs CBC & Chem 7: 09/26/19 06:06 09/26/19 09:40 Labs: Abnormal lab results 09/25/19 09/25/19 09/26/19 Range/Units 16:42 21:13 06:06 RBC 3.44 L (3.65-5.03) M/mm3 Hgb 11.2 L (11.8-15.2) gm/dl Hct 32.4 L (35.5-45.6) % MCH 33 H (28-32) pg MCHC 35 H (32-34) % RDW 12.9 L (13.2-15.2) % Plt Count 499 H (140-440) K/mm3 Seg Neuts % (Manual) 84.0 H (40.0-70.0) % Lymphocytes % (Manual) 6.0 L (13.4-35.0) % Lymphocytes # (Manual) 0.5 L (1.2-5.4) K/mm3 Potassium (3.6-5.0) mmol/L Glucose (75-100) mg/dL POC Glucose 234 H 191 H (70-105) Hemoglobin A1c (4-6) % Calcium (8.4-10.2) mg/dL 09/26/19 09/26/19 09/26/19 Range/Units 06:06 07:22 09:40 RBC (3.65-5.03) M/mm3 Hgb (11.8-15.2) gm/dl Hct (35.5-45.6) % MCH (28-32) pg MCHC (32-34) % RDW (13.2-15.2) % Plt Count (140-440) K/mm3 Seg Neuts % (Manual) (40.0-70.0) % Lymphocytes % (Manual) (13.4-35.0) % Lymphocytes # (Manual) (1.2-5.4) K/mm3 Potassium 3.1 L D (3.6-5.0) mmol/L Glucose 113 H (75-100) mg/dL POC Glucose 117 H (70-105) Hemoglobin A1c 12.6 H (4-6) % Calcium 7.5 L D (8.4-10.2) mg/dL
--- NOTE | 2019-09-26 15:25 | Progress Note ---
Assessment and Plan Assessment and plan: Patient is a 48-year-old man with diabetes who presents to the hospital with left buttock swelling and pain. He then had a break in his skin and it was draining foul-smelling liquid Sepsis -Continue sepsis protocol, continue antibiotics, ID consult appreciated -Gram-positive bacteremia, discussed with ID, repeat cultures ordered, echo ordered Left buttock abscess Status post I&D by general surgery on 09/23, continue local wound care, follow- up with surgical cultures -Case discussed with general surgeon, patient will likely need further debridements, they will follow along and decide based on how patient progresses Uncontrolled diabetes with persistent hyperglycemia -Optimize insulins Hypertension continue BP meds Pain control; continue pain medications Severe malnutrition, albumin 2.3 Dietitian consult DVT prophylaxis Lovenox History Interval history: Patient was seen and examined. Follow-up on current diagnosis. No overnight events reported to me. Patient denies any chest pain, shortness breath, nausea/vomiting or severe headaches. Imaging, nursing note, chart, labs and old chart reviewed. Discussed with patient. Hospitalist Physical - Physical exam Narrative exam: Gen: WDWN, NAD, Awake, Alert, Orientated HEENT: NCAT, EOMI, PERRL, OP Clear Neck: supple, no adenopathy, no thyromegaly, no JVD CVS/Heart: RRR, normal S1S2, pulses present bilaterally Chest/Lungs: CTA B, Symmetrical chest expansion, good air entry bilaterally GI/Abdomen: soft, NTND, good bowel sounds, no guarding or rebound /Bladder: no suprapubic tenderness, no CVA or paraspinal tenderness Extermity/Skin: no c/c/e, no obvious rash MSK: FROM x 4 Neuro: CN 2-12 grossly intact, no new focal deficits Psych: calm - Constitutional Vitals: Temp Pulse Resp BP Pulse Ox 98.0 F 78 18 135/66 97 09/26/19 11:11 09/26/19 11:51 09/26/19 11:11 09/26/19 11:51 09/26/19 11:11 General appearance: Present: obese Results - Labs CBC & Chem 7: 09/26/19 06:06 09/26/19 09:40 Labs: Laboratory Last Values WBC 9.0 K/mm3 (4.5-11.0) 09/26/19 06:06 RBC 3.44 M/mm3 (3.65-5.03) L 09/26/19 06:06 Hgb 11.2 gm/dl (11.8-15.2) L 09/26/19 06:06 Hct 32.4 % (35.5-45.6) L 09/26/19 06:06 MCV 94 fl (84-94) 09/26/19 06:06 MCH 33 pg (28-32) H 09/26/19 06:06 MCHC 35 % (32-34) H 09/26/19 06:06 RDW 12.9 % (13.2-15.2) L 09/26/19 06:06 Plt Count 499 K/mm3 (140-440) H 09/26/19 06:06 Add Manual Diff Complete 09/26/19 06:06 Total Counted 100 09/26/19 06:06 Seg Neuts % (Manual) 84.0 % (40.0-70.0) H 09/26/19 06:06 Band Neutrophils % 2.0 % 09/26/19 06:06 Lymphocytes % (Manual) 6.0 % (13.4-35.0) L 09/26/19 06:06 Reactive Lymphs % (Man) 3.0 % 09/26/19 06:06 Monocytes % (Manual) 3.0 % (0.0-7.3) 09/26/19 06:06 Eosinophils % (Manual) 2.0 % (0.0-4.3) 09/26/19 06:06 Basophils % (Manual) 0 % (0.0-1.8) 09/26/19 06:06 Metamyelocytes % 0 % 09/26/19 06:06 Myelocytes % 0 % 09/26/19 06:06 Promyelocytes % 0 % 09/26/19 06:06 Blast Cells % 0 % 09/26/19 06:06 Nucleated RBC % Not Reportable 09/26/19 06:06 Seg Neutrophils # Man 7.6 K/mm3 (1.8-7.7) 09/26/19 06:06 Band Neutrophils # 0.2 K/mm3 09/26/19 06:06 Lymphocytes # (Manual) 0.5 K/mm3 (1.2-5.4) L 09/26/19 06:06 Abs React Lymphs (Man) 0.3 K/mm3 09/26/19 06:06 Monocytes # (Manual) 0.3 K/mm3 (0.0-0.8) 09/26/19 06:06 Eosinophils # (Manual) 0.2 K/mm3 (0.0-0.4) 09/26/19 06:06 Basophils # (Manual) 0.0 K/mm3 (0.0-0.1) 09/26/19 06:06 Metamyelocytes # 0.0 K/mm3 09/26/19 06:06 Myelocytes # 0.0 K/mm3 09/26/19 06:06 Promyelocytes # 0.0 K/mm3 09/26/19 06:06 Blast Cells # 0.0 K/mm3 09/26/19 06:06 WBC Morphology Not Reportable 09/26/19 06:06 Hypersegmented Neuts Not Reportable 09/26/19 06:06 Hyposegmented Neuts Not Reportable 09/26/19 06:06 Hypogranular Neuts Not Reportable 09/26/19 06:06 Smudge Cells Not Reportable 09/26/19 06:06 Toxic Granulation Not Reportable 09/26/19 06:06 Toxic Vacuolation Not Reportable 09/26/19 06:06 Dohle Bodies Not Reportable 09/26/19 06:06 Pelger-Huet Anomaly Not Reportable 09/26/19 06:06 Mili Rods Not Reportable 09/26/19 06:06 Platelet Estimate Consistent w auto 09/26/19 06:06 Clumped Platelets Not Reportable 09/26/19 06:06 Plt Clumps, EDTA Not Reportable 09/26/19 06:06 Large Platelets Not Reportable 09/26/19 06:06 Giant Platelets Not Reportable 09/26/19 06:06 Platelet Satelliting Not Reportable 09/26/19 06:06 Plt Morphology Comment Not Reportable 09/26/19 06:06 RBC Morphology Normal 09/26/19 06:06 Dimorphic RBCs Not Reportable 09/26/19 06:06 Polychromasia Not Reportable 09/26/19 06:06 Hypochromasia Not Reportable 09/26/19 06:06 Poikilocytosis Not Reportable 09/26/19 06:06 Anisocytosis Not Reportable 09/26/19 06:06 Microcytosis Not Reportable 09/26/19 06:06 Macrocytosis Not Reportable 09/26/19 06:06 Spherocytes Not Reportable 09/26/19 06:06 Pappenheimer Bodies Not Reportable 09/26/19 06:06 Sickle Cells Not Reportable 09/26/19 06:06 Target Cells Not Reportable 09/26/19 06:06 Tear Drop Cells Not Reportable 09/26/19 06:06 Ovalocytes Not Reportable 09/26/19 06:06 Helmet Cells Not Reportable 09/26/19 06:06 [place] Bodies Not Reportable 09/26/19 06:06 [place] Rings Not Reportable 09/26/19 06:06 Al Cells Not Reportable 09/26/19 06:06 Bite Cells Not Reportable 09/26/19 06:06 Crenated Cell Not Reportable 09/26/19 06:06 Elliptocytes Not Reportable 09/26/19 06:06 Acanthocytes (Spur) Not Reportable 09/26/19 06:06 Rouleaux Not Reportable 09/26/19 06:06 Hemoglobin C Crystals Not Reportable 09/26/19 06:06 Schistocytes Not Reportable 09/26/19 06:06 Malaria parasites Not Reportable 09/26/19 06:06 Nicholas Bodies Not Reportable 09/26/19 06:06 Hem Pathologist Commnt No 09/26/19 06:06 PT 14.8 Sec. (12.2-14.9) 09/22/19 19:00 INR 1.17 (0.87-1.13) H 09/22/19 19:00 VBG pH 7.354 (7.320-7.420) 09/22/19 19:00 Sodium 137 mmol/L (137-145) D 09/26/19 09:40 Potassium 3.1 mmol/L (3.6-5.0) L D 09/26/19 09:40 Chloride 99.5 mmol/L (98-107) 09/26/19 09:40 Carbon Dioxide 24 mmol/L (22-30) 09/26/19 09:40 Anion Gap 17 mmol/L 09/26/19 09:40 BUN 9 mg/dL (9-20) 09/26/19 09:40 Creatinine 0.8 mg/dL (0.8-1.5) 09/26/19 09:40 Estimated GFR > 60 ml/min 09/26/19 09:40 BUN/Creatinine Ratio 11 % 09/26/19 09:40 Glucose 113 mg/dL (75-100) H 09/26/19 09:40 POC Glucose 92 (70-105) 09/26/19 11:22 Hemoglobin A1c 12.6 % (4-6) H 09/26/19 06:06 Lactic Acid 1.20 mmol/L (0.7-2.0) 09/23/19 04:26 Calcium 7.5 mg/dL (8.4-10.2) L D 09/26/19 09:40 Total Bilirubin 0.40 mg/dL (0.1-1.2) 09/22/19 19:00 AST 51 units/L (5-40) H 09/22/19 19:00 ALT 48 units/L (7-56) 09/22/19 19:00 Alkaline Phosphatase 128 units/L (35-129) 09/22/19 19:00 Total Protein 7.9 g/dL (6.3-8.2) 09/22/19 19:00 Albumin 2.3 g/dL (3.9-5) L 09/22/19 19:00 Albumin/Globulin Ratio 0.4 % 09/22/19 19:00 Urine Color Yellow (Yellow) 09/23/19 Unknown Urine Turbidity Clear (Clear) 09/23/19 Unknown Urine pH 6.0 (5.0-7.0) 09/23/19 Unknown Ur Specific [place] 1.035 (1.003-1.030) H 09/23/19 Unknown Urine Protein 30 mg/dl mg/dL (Negative) 09/23/19 Unknown Urine Glucose (UA) >=500 mg/dL (Negative) 09/23/19 Unknown Urine Ketones Neg mg/dL (Negative) 09/23/19 Unknown Urine Blood Sm (Negative) 09/23/19 Unknown Urine Nitrite Neg (Negative) 09/23/19 Unknown Urine Bilirubin Neg (Negative) 09/23/19 Unknown Urine Urobilinogen < 2.0 mg/dL (<2.0) 09/23/19 Unknown Ur Leukocyte Esterase Neg (Negative) 09/23/19 Unknown Urine WBC (Auto) 1.0 /HPF (0.0-6.0) 09/23/19 Unknown Urine RBC (Auto) 2.0 /HPF (0.0-6.0) 09/23/19 Unknown Vancomycin Trough 16.4 ug/mL (5.0-20.0) 09/26/19 09:40 Active Medications - Current Medications Current Medications: Generic Name Dose Route Start Last Admin Trade Name Freq PRN Reason Stop Dose Admin Acetaminophen 650 mg 09/22/19 23:43 Tylenol PO Q4H PRN Pain MILD(1-3)/Fever >100.5/SALINAS Albuterol 2.5 mg 09/22/19 23:43 Proventil IH Q4HRT PRN Shortness Of Breath Amlodipine Besylate 10 mg 09/23/19 10:00 09/26/19 11:51 Amlodipine PO 10 mg DAILY KAREN Administration Dextrose 0 ml 09/22/19 23:45 D50w (25gm) Syringe IV Q30MIN PRN Hypoglycemia Protocol Enoxaparin Sodium 40 mg 09/25/19 22:00 09/25/19 21:27 Enoxaparin SUB-Q 40 mg QDAY@2200 KAREN Administration Hydromorphone HCl 1 mg 09/24/19 18:01 09/26/19 11:44 Dilaudid IV 1 mg Q4H PRN Administration Pain , Severe (7-10) Cefepime HCl 2 gm in 100 mls @ 200 mls/hr 09/24/19 14:00 09/26/19 06:04 Cefepime/Ns 2 Gm/100 Ml IV 200 mls/hr Q8HR KAREN Administration Protocol Clindamycin HCl 900 mg in 50 mls @ 100 mls/hr 09/24/19 14:00 09/26/19 05:39 Cleocin 900 Mg/50 Ml IV 09/27/19 13:59 100 mls/hr Q8HR KAREN Administration Protocol Vancomycin HCl 2,000 mg/ 540 mls @ 250 mls/hr 09/25/19 22:00 09/26/19 11:59 Sodium Chloride IV 250 mls/hr Q12HR KAREN Administration Insulin Glargine 35 units 09/25/19 22:00 09/26/19 11:05 Lantus SUB-Q 35 units Q12HR KAREN Administration Insulin Human Lispro 0 unit 09/24/19 22:00 09/26/19 12:48 Humalog SUB-Q Not Given ACHS [facility] Protocol Insulin Human Lispro 8 unit 09/25/19 16:30 09/26/19 12:50 Humalog SUB-Q Not Given AC [facility] Ondansetron HCl 4 mg 09/22/19 23:43 Zofran IV Q8H PRN Nausea And Vomiting Oxycodone/Acetaminophen 2 tab 09/24/19 12:32 09/26/19 08:14 Percocet 5/325 PO 2 tab Q6H PRN Administration Pain, Moderate (4-6) Potassium Chloride 40 meq 09/26/19 15:22 K-Dur PO 09/26/19 15:23 ONCE ONE Sodium Chloride 10 ml 09/23/19 10:00 09/26/19 11:54 Sodium Chloride Flush Syringe 10 Ml IV 10 ml BID KAREN Administration Sodium Chloride 10 ml 09/22/19 23:43 09/25/19 14:21 Sodium Chloride Flush Syringe 10 Ml IV 10 ml PRN PRN Administration LINE FLUSH Sodium Hypochlorite 1 applic 09/24/19 10:00 09/26/19 11:04 Dakin's Half Strength TP 1 dose DAILY KAREN Administration Nutrition/Malnutrition Assess - Dietary Evaluation Nutrition/Malnutrition Findings: Nutrition Notes Start: 09/26/19 09:49 Freq: Status: Active Protocol: Document 09/26/19 09:49 DW (Rec: 09/26/19 10:06 DW [id number]) Co-Sign 09/26/19 09:49 LP Nutrition Notes Need for Assessment generated from: MD Order,MST Initial or Follow up Assessment Current Diagnosis Diabetes,Hypertension Other Pertinent Diagnosis buttock wound Current Diet Consistent CHO Labs/Tests A1C: 12.6 Pertinent Medications Reviewed Height 5 ft 8 in Weight 120.565 kg [place] Body Weight (kg) 70.00 BMI 40.4 Subjective/Other Information MD consult for Malnutrition Upon arrival noted 0% breakfast consumed at bedside. Pt stated he has no recent wt loss and his appetite was fair. Pt also stated he consumed 3 meals per day but stated he does not remember diet history. Pt stated he did not remember DM specific diet and education was given. Wet Finisher adviced pt to eat more whole foods for healing. Burn Absent Trauma Absent GI Symptoms None Minimum of two criteria No physical signs of malnutrition #3 Nutrition Diagnosis Inadequate oral intake Etiology decreased appetite d/t chronic illness As Evidenced by Signs and Symptoms pt did not consume breakfast #2 Nutrition Diagnosis Food and nutrition-related knowledge deficit Etiology pt did not remember DM diet As Evidenced by Signs and Symptoms pt consuming high sugary drinks and high carbohydrate intake, A1C 12.6 #1 Nutrition Diagnosis Increased nutrient needs ( specify in comment below) Comments: pro Etiology wound healing As Evidenced by Signs and Symptoms buttocks wound Is patient on ventilator? No Is Patient Ambulatory and/or Out of Bed Yes REE-([place]-St. Jeor-ambulatory/OOB) [ 2665.195 NUTR.[id number]] Kcal/Kg value to use for calculation 18 Approximate Energy Requirements Using 2170 kcal/Kg Calculation Used for Recommendations Kcal/kg Additional Notes PRO needs: 103-123g (1.25-1.5g /kg AdjBW 82.5kg) Fluid needs: 1 ml/kcal Nutrition Intervention Change Diet Order: Continue Current Diet Teaching Recipient Patient Learning Readiness Good Teaching Methods Discussion,Handout Response to Teaching Verbalize understanding Education Handouts Provided CHO Counting Barriers to Learning Motivation RD phone number provided Yes Patient aware of follow up options Yes Goal #1 Meet atleast 75% of kcal/pro needs Goal #2 Wound healing Anticipated Discharge Needs: Consistent CHO Diet Follow-Up By: 09/28/19 Additional Comments FU PO intake , ONS needs and further education questions
[2019-09-26] MEDS ORDERED: POTASSIUM CHLORIDE ER 20 MEQ TAB PO ONE (16:22)
[2019-09-26] MEDS: ENOXAPARIN 40 MG/0.4 ML INJ SUB-Q SCH (23:12)
[2019-09-27] MEDS: INSULIN LISPRO 100 UNIT/ML SUB-Q SCH ×8 (05:56→21:56)
[2019-09-27] MEDS: CEFEPIME/NS 2 GM/100 ML 2 GM/100 ML BAG IV SCH (06:13)
[2019-09-27] MEDS: amLODIPine 10 MG TAB PO SCH (09:08)
[2019-09-27] MEDS: VANCOMYCIN 2,000 MG in SODIUM CHLORIDE 0.9% 500 ML 500 ML IV SCH (09:08)
[2019-09-27] MEDS: INSULIN GLARGINE 100 UNITS/ML SUB-Q SCH ×2 (09:09→21:52)
--- NOTE | 2019-09-27 10:00 | Progress Note ---
Assessment and Plan - Patient Problems (1) Left buttock abscess Current Visit: Yes Status: Acute Plan to address problem: Pt stable. s/p left buttock I&D, debridement - 09/23 - POD#4. Wound in need of further debridement. Procedure, risks, benefits discussed. Consent obtained. Scheduled for surgery on Wednesday at 12:30pm. Continue current wound care. Please call with questions. Subjective Date of service: 09/27/19 Patient Reports: Positive: no new complaints Objective Vital Signs - 12hr 09/26/19 09/27/19 09/27/19 23:56 04:41 07:37 Temperature 98.0 F 97.5 F L 97.9 F Pulse Rate 71 67 76 Respiratory 17 17 18 Rate Blood Pressure 135/74 134/67 148/78 O2 Sat by Pulse 93 96 95 Oximetry 09/27/19 09:08 Temperature Pulse Rate 76 Respiratory Rate Blood Pressure 148/78 O2 Sat by Pulse Oximetry - General physical appearance no distress, no pain, obese, other (resting comfortably) - Respiratory normal expansion, normal respiratory effort - Psychiatric oriented to time, oriented to person, oriented to place, speech is normal, memory intact - Labs 09/26/19 06:06 09/26/19 09:40 Diabetes panel 09/26/19 Range/Units 09:40 Sodium 137 D (137-145) mmol/L Potassium 3.1 L D (3.6-5.0) mmol/L Chloride 99.5 (98-107) mmol/L Carbon Dioxide 24 (22-30) mmol/L BUN 9 (9-20) mg/dL Creatinine 0.8 (0.8-1.5) mg/dL Glucose 113 H (75-100) mg/dL Calcium 7.5 L D (8.4-10.2) mg/dL Calcium panel 09/26/19 Range/Units 09:40 Calcium 7.5 L D (8.4-10.2) mg/dL Pituitary panel 09/26/19 Range/Units 09:40 Sodium 137 D (137-145) mmol/L Potassium 3.1 L D (3.6-5.0) mmol/L Chloride 99.5 (98-107) mmol/L Carbon Dioxide 24 (22-30) mmol/L BUN 9 (9-20) mg/dL Creatinine 0.8 (0.8-1.5) mg/dL Glucose 113 H (75-100) mg/dL Calcium 7.5 L D (8.4-10.2) mg/dL Adrenal panel 09/26/19 Range/Units 09:40 Sodium 137 D (137-145) mmol/L Potassium 3.1 L D (3.6-5.0) mmol/L Chloride 99.5 (98-107) mmol/L Carbon Dioxide 24 (22-30) mmol/L BUN 9 (9-20) mg/dL Creatinine 0.8 (0.8-1.5) mg/dL Glucose 113 H (75-100) mg/dL Calcium 7.5 L D (8.4-10.2) mg/dL
--- NOTE | 2019-09-27 12:15 | Progress Note ---
Assessment and Plan Cultures Blood culture 09/22/2019: Streptococcus salivarius Wound culture 09/23/2019: mixed Gram stain: culture with just skin christian. 09/25/2019 Blood culture: no growth Assessment: 48 yo M PMhx obesity, DM2 admitted for severe soft tissue infection of the buttock. # Acute sepsis - present with fever and leukocytosis. Secondary to necrotizing soft tissue infection of the left buttock # Necrotizing cellulitis/infection of left buttock - s/p debridement. Surgery following. Planned for additional debridement on Wednesday09/28/2019. # DM2 - recommend tight glycemic control for improved wound healing # Streptococcus salivarius bacteremia: secondary to above. TTE unremarkable for vegetations or valvular issues. Recs: - discontinued Cefepime and Vancomycin - started IV Ceftriaxone 2 gm daily - completes 3 days of IV clindamycin today - additional debridement in OR per Gen Surgery on Wednesday09/28/2019 Summer Samuel MD, FACP [facility] ([facility]) C: [phone] O: [phone] F: [phone] Subjective Date of service: 09/27/19 Interval history: No fever. Pain in left buttock region is improving. Continues on abx. Surgery planned for tomorrow. Objective - Exam Narrative Exam: Physical Exam: Constitutional: Alert, cooperative. No acute distress. Obese Head, Ears, Nose: Normocephalic, atraumatic. External ears, nose normal Eyes: Conjunctivae/corneas clear. No icterus. No ptosis. Neck: Supple, no meningeal signs Oral: no thrush Cardiovascular: S1, S2 normal. Respiratory: Good air entry, clear to auscultation bilaterally GI: Soft, non-tender; bowel sounds normal. No peritoneal signs Musculoskeletal: Left buttock with dressing, with minimal tenderness + around it. Skin: No rash or abscess Hem/Lymphatic: No palpable cervical or supraclavicular nodes. No lymphangitis Psych: Mood ok. Affect normal Neurological: Awake, alert, oriented. No gross abnormality - Constitutional Vitals: Vital Signs Temp Pulse Resp BP Pulse Ox 98.2 F 81 18 161/86 94 09/27/19 11:50 09/27/19 11:50 09/27/19 11:50 09/27/19 11:50 09/27/19 11:50 Temperature -Last 24 Hours Temperature 98.2 F Temperature 97.9 F Temperature 97.5 F Temperature 98.0 F Temperature 98.3 F Temperature 97.9 F - Labs CBC & Chem 7: 09/26/19 06:06 09/26/19 09:40 Labs: Abnormal lab results 09/26/19 09/27/19 Range/Units 16:24 11:22 POC Glucose 140 H 128 H (70-105)
[2019-09-27] MEDS: cefTRIAXone/NS 2 GM/100 ML 2 GM/100 ML BAG IV SCH (14:30)
[2019-09-27] MEDS: HYDROmorphone 1 MG/1 ML INJ IV PRN (16:44)
--- NOTE | 2019-09-27 18:10 | Progress Note ---
Assessment and Plan Assessment and plan: Patient is a 48-year-old man with diabetes who presents to the hospital with left buttock swelling and pain. He then had a break in his skin and it was draining foul-smelling liquid Sepsis -Continue sepsis protocol, continue antibiotics, ID consult appreciated -Gram-positive bacteremia, discussed with ID, repeat cultures ordered, echo ordered Left buttock abscess Status post I&D by general surgery on 09/23, continue local wound care, follow- up with surgical cultures -Case discussed with general surgeon, patient will likely need further debridements, they will follow along and decide based on how patient progresses Uncontrolled diabetes with persistent hyperglycemia -Optimize insulins Hypertension continue BP meds Pain control; continue pain medications Severe malnutrition, albumin 2.3 Dietitian consult DVT prophylaxis Lovenox History Interval history: Patient was seen and examined. Follow-up on current diagnosis. No overnight events reported to me. Patient denies any chest pain, shortness breath, nausea/vomiting or severe headaches. Imaging, nursing note, chart, labs and old chart reviewed. Discussed with patient. Hospitalist Physical - Physical exam Narrative exam: Gen: WDWN, NAD, Awake, Alert, Orientated HEENT: NCAT, EOMI, PERRL, OP Clear Neck: supple, no adenopathy, no thyromegaly, no JVD CVS/Heart: RRR, normal S1S2, pulses present bilaterally Chest/Lungs: CTA B, Symmetrical chest expansion, good air entry bilaterally GI/Abdomen: soft, NTND, good bowel sounds, no guarding or rebound /Bladder: no suprapubic tenderness, no CVA or paraspinal tenderness Extermity/Skin: no c/c/e, no obvious rash MSK: FROM x 4 Neuro: CN 2-12 grossly intact, no new focal deficits Psych: calm - Constitutional Vitals: Temp Pulse Resp BP Pulse Ox 98.2 F 81 18 161/86 94 09/27/19 11:50 09/27/19 11:50 09/27/19 11:50 09/27/19 11:50 09/27/19 11:50 General appearance: Present: obese Results - Labs CBC & Chem 7: 09/26/19 06:06 09/26/19 09:40 Labs: Laboratory Last Values WBC 9.0 K/mm3 (4.5-11.0) 09/26/19 06:06 RBC 3.44 M/mm3 (3.65-5.03) L 09/26/19 06:06 Hgb 11.2 gm/dl (11.8-15.2) L 09/26/19 06:06 Hct 32.4 % (35.5-45.6) L 09/26/19 06:06 MCV 94 fl (84-94) 09/26/19 06:06 MCH 33 pg (28-32) H 09/26/19 06:06 MCHC 35 % (32-34) H 09/26/19 06:06 RDW 12.9 % (13.2-15.2) L 09/26/19 06:06 Plt Count 499 K/mm3 (140-440) H 09/26/19 06:06 Add Manual Diff Complete 09/26/19 06:06 Total Counted 100 09/26/19 06:06 Seg Neuts % (Manual) 84.0 % (40.0-70.0) H 09/26/19 06:06 Band Neutrophils % 2.0 % 09/26/19 06:06 Lymphocytes % (Manual) 6.0 % (13.4-35.0) L 09/26/19 06:06 Reactive Lymphs % (Man) 3.0 % 09/26/19 06:06 Monocytes % (Manual) 3.0 % (0.0-7.3) 09/26/19 06:06 Eosinophils % (Manual) 2.0 % (0.0-4.3) 09/26/19 06:06 Basophils % (Manual) 0 % (0.0-1.8) 09/26/19 06:06 Metamyelocytes % 0 % 09/26/19 06:06 Myelocytes % 0 % 09/26/19 06:06 Promyelocytes % 0 % 09/26/19 06:06 Blast Cells % 0 % 09/26/19 06:06 Nucleated RBC % Not Reportable 09/26/19 06:06 Seg Neutrophils # Man 7.6 K/mm3 (1.8-7.7) 09/26/19 06:06 Band Neutrophils # 0.2 K/mm3 09/26/19 06:06 Lymphocytes # (Manual) 0.5 K/mm3 (1.2-5.4) L 09/26/19 06:06 Abs React Lymphs (Man) 0.3 K/mm3 09/26/19 06:06 Monocytes # (Manual) 0.3 K/mm3 (0.0-0.8) 09/26/19 06:06 Eosinophils # (Manual) 0.2 K/mm3 (0.0-0.4) 09/26/19 06:06 Basophils # (Manual) 0.0 K/mm3 (0.0-0.1) 09/26/19 06:06 Metamyelocytes # 0.0 K/mm3 09/26/19 06:06 Myelocytes # 0.0 K/mm3 09/26/19 06:06 Promyelocytes # 0.0 K/mm3 09/26/19 06:06 Blast Cells # 0.0 K/mm3 09/26/19 06:06 WBC Morphology Not Reportable 09/26/19 06:06 Hypersegmented Neuts Not Reportable 09/26/19 06:06 Hyposegmented Neuts Not Reportable 09/26/19 06:06 Hypogranular Neuts Not Reportable 09/26/19 06:06 Smudge Cells Not Reportable 09/26/19 06:06 Toxic Granulation Not Reportable 09/26/19 06:06 Toxic Vacuolation Not Reportable 09/26/19 06:06 Dohle Bodies Not Reportable 09/26/19 06:06 Pelger-Huet Anomaly Not Reportable 09/26/19 06:06 Mili Rods Not Reportable 09/26/19 06:06 Platelet Estimate Consistent w auto 09/26/19 06:06 Clumped Platelets Not Reportable 09/26/19 06:06 Plt Clumps, EDTA Not Reportable 09/26/19 06:06 Large Platelets Not Reportable 09/26/19 06:06 Giant Platelets Not Reportable 09/26/19 06:06 Platelet Satelliting Not Reportable 09/26/19 06:06 Plt Morphology Comment Not Reportable 09/26/19 06:06 RBC Morphology Normal 09/26/19 06:06 Dimorphic RBCs Not Reportable 09/26/19 06:06 Polychromasia Not Reportable 09/26/19 06:06 Hypochromasia Not Reportable 09/26/19 06:06 Poikilocytosis Not Reportable 09/26/19 06:06 Anisocytosis Not Reportable 09/26/19 06:06 Microcytosis Not Reportable 09/26/19 06:06 Macrocytosis Not Reportable 09/26/19 06:06 Spherocytes Not Reportable 09/26/19 06:06 Pappenheimer Bodies Not Reportable 09/26/19 06:06 Sickle Cells Not Reportable 09/26/19 06:06 Target Cells Not Reportable 09/26/19 06:06 Tear Drop Cells Not Reportable 09/26/19 06:06 Ovalocytes Not Reportable 09/26/19 06:06 Helmet Cells Not Reportable 09/26/19 06:06 Huff-Fuig Bodies Not Reportable 09/26/19 06:06 Colt Rings Not Reportable 09/26/19 06:06 Al Cells Not Reportable 09/26/19 06:06 Bite Cells Not Reportable 09/26/19 06:06 Crenated Cell Not Reportable 09/26/19 06:06 Elliptocytes Not Reportable 09/26/19 06:06 Acanthocytes (Spur) Not Reportable 09/26/19 06:06 Rouleaux Not Reportable 09/26/19 06:06 Hemoglobin C Crystals Not Reportable 09/26/19 06:06 Schistocytes Not Reportable 09/26/19 06:06 Malaria parasites Not Reportable 09/26/19 06:06 Nicholas Bodies Not Reportable 09/26/19 06:06 Hem Pathologist Commnt No 09/26/19 06:06 PT 14.8 Sec. (12.2-14.9) 09/22/19 19:00 INR 1.17 (0.87-1.13) H 09/22/19 19:00 VBG pH 7.354 (7.320-7.420) 09/22/19 19:00 Sodium 137 mmol/L (137-145) D 09/26/19 09:40 Potassium 3.1 mmol/L (3.6-5.0) L D 09/26/19 09:40 Chloride 99.5 mmol/L (98-107) 09/26/19 09:40 Carbon Dioxide 24 mmol/L (22-30) 09/26/19 09:40 Anion Gap 17 mmol/L 09/26/19 09:40 BUN 9 mg/dL (9-20) 09/26/19 09:40 Creatinine 0.8 mg/dL (0.8-1.5) 09/26/19 09:40 Estimated GFR > 60 ml/min 09/26/19 09:40 BUN/Creatinine Ratio 11 % 09/26/19 09:40 Glucose 113 mg/dL (75-100) H 09/26/19 09:40 POC Glucose 176 (70-105) H 09/27/19 16:48 Hemoglobin A1c 12.6 % (4-6) H 09/26/19 06:06 Lactic Acid 1.20 mmol/L (0.7-2.0) 09/23/19 04:26 Calcium 7.5 mg/dL (8.4-10.2) L D 09/26/19 09:40 Total Bilirubin 0.40 mg/dL (0.1-1.2) 09/22/19 19:00 AST 51 units/L (5-40) H 09/22/19 19:00 ALT 48 units/L (7-56) 09/22/19 19:00 Alkaline Phosphatase 128 units/L (35-129) 09/22/19 19:00 Total Protein 7.9 g/dL (6.3-8.2) 09/22/19 19:00 Albumin 2.3 g/dL (3.9-5) L 09/22/19 19:00 Albumin/Globulin Ratio 0.4 % 09/22/19 19:00 Urine Color Yellow (Yellow) 09/23/19 Unknown Urine Turbidity Clear (Clear) 09/23/19 Unknown Urine pH 6.0 (5.0-7.0) 09/23/19 Unknown Ur Specific Pollock 1.035 (1.003-1.030) H 09/23/19 Unknown Urine Protein 30 mg/dl mg/dL (Negative) 09/23/19 Unknown Urine Glucose (UA) >=500 mg/dL (Negative) 09/23/19 Unknown Urine Ketones Neg mg/dL (Negative) 09/23/19 Unknown Urine Blood Sm (Negative) 09/23/19 Unknown Urine Nitrite Neg (Negative) 09/23/19 Unknown Urine Bilirubin Neg (Negative) 09/23/19 Unknown Urine Urobilinogen < 2.0 mg/dL (<2.0) 09/23/19 Unknown Ur Leukocyte Esterase Neg (Negative) 09/23/19 Unknown Urine WBC (Auto) 1.0 /HPF (0.0-6.0) 09/23/19 Unknown Urine RBC (Auto) 2.0 /HPF (0.0-6.0) 09/23/19 Unknown Vancomycin Trough 16.4 ug/mL (5.0-20.0) 09/26/19 09:40 Active Medications - Current Medications Current Medications: Generic Name Dose Route Start Last Admin Trade Name Freq PRN Reason Stop Dose Admin Acetaminophen 650 mg 09/22/19 23:43 Tylenol PO Q4H PRN Pain MILD(1-3)/Fever >100.5/SALINAS Albuterol 2.5 mg 09/22/19 23:43 Proventil IH Q4HRT PRN Shortness Of Breath Amlodipine Besylate 10 mg 09/23/19 10:00 09/27/19 09:08 Amlodipine PO 10 mg DAILY KAREN Administration Dextrose 0 ml 09/22/19 23:45 D50w (25gm) Syringe IV Q30MIN PRN Hypoglycemia Protocol Enoxaparin Sodium 40 mg 09/25/19 22:00 09/26/19 23:12 Enoxaparin SUB-Q 40 mg QDAY@2200 KAREN Administration Hydromorphone HCl 1 mg 09/24/19 18:01 09/27/19 16:44 Dilaudid IV 1 mg Q4H PRN Administration Pain , Severe (7-10) Ceftriaxone Sodium 2 gm in 100 mls @ 200 mls/hr 09/27/19 14:00 09/27/19 14:30 Rocephin/Ns 2 Gm/100 Ml IV 200 mls/hr Q24H KAREN Administration Protocol Insulin Glargine 35 units 09/25/19 22:00 09/27/19 09:09 Lantus SUB-Q 35 units Q12HR KAREN Administration Insulin Human Lispro 0 unit 09/24/19 22:00 09/27/19 16:41 Humalog SUB-Q 3 unit ACHS KAREN Administration Protocol Insulin Human Lispro 8 unit 09/25/19 16:30 09/27/19 16:45 Humalog SUB-Q 8 unit AC KAREN Administration Ondansetron HCl 4 mg 09/22/19 23:43 Zofran IV Q8H PRN Nausea And Vomiting Oxycodone/Acetaminophen 2 tab 09/24/19 12:32 09/26/19 18:34 Percocet 5/325 PO 2 tab Q6H PRN Administration Pain, Moderate (4-6) Sodium Chloride 10 ml 09/23/19 10:00 09/27/19 10:00 Sodium Chloride Flush Syringe 10 Ml IV Not Given BID KAREN Sodium Chloride 10 ml 09/22/19 23:43 09/25/19 14:21 Sodium Chloride Flush Syringe 10 Ml IV 10 ml PRN PRN Administration LINE FLUSH Sodium Hypochlorite 1 applic 09/24/19 10:00 09/26/19 11:04 Dakin's Half Strength TP 1 dose DAILY KAREN Administration Nutrition/Malnutrition Assess - Dietary Evaluation Nutrition/Malnutrition Findings: Nutrition Notes Start: 09/26/19 09:49 Freq: Status: Active Protocol: Document 09/26/19 09:49 DW (Rec: 09/26/19 10:06 DW [id number]) Co-Sign 09/26/19 09:49 LP Nutrition Notes Need for Assessment generated from: MD Order,MST Initial or Follow up Assessment Current Diagnosis Diabetes,Hypertension Other Pertinent Diagnosis buttock wound Current Diet Consistent CHO Labs/Tests A1C: 12.6 Pertinent Medications Reviewed Height 5 ft 8 in Weight 120.565 kg [place] Body Weight (kg) 70.00 BMI 40.4 Subjective/Other Information MD consult for Malnutrition Upon arrival noted 0% breakfast consumed at bedside. Pt stated he has no recent wt loss and his appetite was fair. Pt also stated he consumed 3 meals per day but stated he does not remember diet history. Pt stated he did not remember DM specific diet and education was given. Web Site Specialist adviced pt to eat more whole foods for healing. Burn Absent Trauma Absent GI Symptoms None Minimum of two criteria No physical signs of malnutrition #3 Nutrition Diagnosis Inadequate oral intake Etiology decreased appetite d/t chronic illness As Evidenced by Signs and Symptoms pt did not consume breakfast #2 Nutrition Diagnosis Food and nutrition-related knowledge deficit Etiology pt did not remember DM diet As Evidenced by Signs and Symptoms pt consuming high sugary drinks and high carbohydrate intake, A1C 12.6 #1 Nutrition Diagnosis Increased nutrient needs ( specify in comment below) Comments: pro Etiology wound healing As Evidenced by Signs and Symptoms buttocks wound Is patient on ventilator? No Is Patient Ambulatory and/or Out of Bed Yes REE-([place]. or-ambulatory/OOB) [ 2665.195 NUTR.[id number]] Kcal/Kg value to use for calculation 18 Approximate Energy Requirements Using 2170 kcal/Kg Calculation Used for Recommendations Kcal/kg Additional Notes PRO needs: 103-123g (1.25-1.5g /kg AdjBW 82.5kg) Fluid needs: 1 ml/kcal Nutrition Intervention Change Diet Order: Continue Current Diet Teaching Recipient Patient Learning Readiness Good Teaching Methods Discussion,Handout Response to Teaching Verbalize understanding Education Handouts Provided CHO Counting Barriers to Learning Motivation RD phone number provided Yes Patient aware of follow up options Yes Goal #1 Meet atleast 75% of kcal/pro needs Goal #2 Wound healing Anticipated Discharge Needs: Consistent CHO Diet Follow-Up By: 09/28/19 Additional Comments FU PO intake , ONS needs and further education questions
[2019-09-27] MEDS: oxyCODONE /ACETAMINOPHEN 5-325MG TAB PO PRN (18:29)
[2019-09-27] MEDS: SODIUM HYPOCHLORITE, DAKIN'S 1/2 STRENGTH (0.25%) 473 ML TOPICAL SOLN TP SCH (18:33)
[2019-09-27] MEDS: ENOXAPARIN 40 MG/0.4 ML INJ SUB-Q SCH (21:51)
[2019-09-28] MEDS: oxyCODONE /ACETAMINOPHEN 5-325MG TAB PO PRN ×3 (08:12→21:57)
[2019-09-28] MEDS: amLODIPine 10 MG TAB PO SCH ×2 (08:12→10:40)
[2019-09-28] MEDS: INSULIN GLARGINE 100 UNITS/ML SUB-Q SCH ×2 (09:23→21:59)
[2019-09-28] MEDS: INSULIN LISPRO 100 UNIT/ML SUB-Q SCH ×7 (09:23→21:51)
--- NOTE | 2019-09-28 09:39 | Progress Note ---
Assessment and Plan - Patient Problems (1) Left buttock abscess Current Visit: Yes Status: Acute Plan to address problem: Pt stable. s/p left buttock I&D, debridement - 09/23 - POD#5. Wound in need of further debridement. Procedure, risks, benefits discussed. Consent obtained. Scheduled for surgery on Wednesday at 12:30pm (No OR availability prior to that). Continue current wound care. Please call with questions. Subjective Date of service: 09/28/19 Patient Reports: Positive: no new complaints, pain is less Objective Vital Signs - 12hr 09/28/19 09/28/19 09/28/19 00:05 04:01 07:34 Temperature 97.7 F 97.9 F 97.8 F Pulse Rate 74 71 71 Respiratory 20 20 20 Rate Blood Pressure 132/70 147/76 138/67 O2 Sat by Pulse 92 93 93 Oximetry - General physical appearance no distress, no pain - Respiratory normal expansion, normal respiratory effort - Psychiatric oriented to time, oriented to person, oriented to place, speech is normal, m ricky intact - Labs 09/26/19 06:06 09/26/19 09:40
--- NOTE | 2019-09-28 12:54 | Progress Note ---
Assessment and Plan Cultures Blood culture 09/22/2019: Streptococcus salivarius Wound culture 09/23/2019: mixed Gram stain: culture with just skin christian. 09/25/2019 Blood culture: no growth Assessment: 48 yo M PMhx obesity, DM2 admitted for severe soft tissue infection of the buttock. # Acute sepsis - present with fever and leukocytosis. Secondary to necrotizing soft tissue infection of the left buttock # Necrotizing cellulitis/infection of left buttock - s/p debridement. Surgery following. Planned for additional debridement on Wednesday09/28/2019. # DM2 - recommend tight glycemic control for improved wound healing # Streptococcus salivarius bacteremia: secondary to above. TTE unremarkable for vegetations or valvular issues. Recs: - continue IV Ceftriaxone 2 gm daily - additional debridement in OR per Gen Surgery on Wednesday09/28/2019 - will complete total of 14 days of abx due to the bacteremia Summer Samuel MD, FACP [facility] C: [phone] O: [phone] F: [phone] Subjective Date of service: 09/28/19 Interval history: Awaiting surgery tomorrow. Has no new complaints. no fever. Had pain yesterday during dressing change. No diarrhea. Objective - Exam Narrative Exam: Physical Exam: Constitutional: Alert, cooperative. No acute distress. Obese Head, Ears, Nose: Normocephalic, atraumatic. External ears, nose normal Eyes: Conjunctivae/corneas clear. No icterus. No ptosis. Neck: Supple, no meningeal signs Oral: no thrush Cardiovascular: S1, S2 normal. Respiratory: Good air entry, clear to auscultation bilaterally GI: Soft, non-tender; bowel sounds normal. No peritoneal signs Musculoskeletal: Left buttock with dressing, with minimal tenderness + around it. Skin: No rash or abscess Hem/Lymphatic: No palpable cervical or supraclavicular nodes. No lymphangitis Psych: Mood ok. Affect normal Neurological: Awake, alert, oriented. No gross abnormality - Constitutional Vitals: Vital Signs Temp Pulse Resp BP Pulse Ox 97.7 F 75 20 148/78 95 09/28/19 11:41 09/28/19 11:41 09/28/19 11:41 09/28/19 11:41 09/28/19 11:41 Temperature -Last 24 Hours Temperature 97.7 F Temperature 97.8 F Temperature 97.9 F Temperature 97.7 F Temperature 98.0 F Temperature 98.7 F - Labs CBC & Chem 7: 09/26/19 06:06 09/26/19 09:40 Labs: Abnormal lab results 09/27/19 09/27/19 Range/Units 16:48 21:32 POC Glucose 176 H 148 H (70-105)
[2019-09-28] MEDS: cefTRIAXone/NS 2 GM/100 ML 2 GM/100 ML BAG IV SCH (15:22)
--- NOTE | 2019-09-28 18:00 | Progress Note ---
Assessment and Plan Assessment and plan: Patient is a 48-year-old man with diabetes who presents to the hospital with left buttock swelling and pain. He then had a break in his skin and it was draining foul-smelling liquid Sepsis -Continue sepsis protocol, continue antibiotics, ID consult appreciated -Gram-positive bacteremia, discussed with ID, repeat cultures ordered, echo ordered Left buttock abscess Status post I&D by general surgery on 09/23, continue local wound care, follow- up with surgical cultures -Case discussed with general surgeon, patient will likely need further debridements, they will follow along and decide based on how patient progresses Uncontrolled diabetes with persistent hyperglycemia -Optimize insulins Hypertension continue BP meds Pain control; continue pain medications Severe malnutrition, albumin 2.3 Dietitian consult DVT prophylaxis changed for surgery History Interval history: Patient was seen and examined. Follow-up on current diagnosis. No overnight events reported to me. Patient denies any chest pain, shortness breath, nausea/ vomiting or severe headaches. Imaging, nursing note, chart, labs and old chart reviewed. Discussed with patient. Hospitalist Physical - Physical exam Narrative exam: Gen: WDWN, NAD, Awake, Alert, Orientated HEENT: NCAT, EOMI, PERRL, OP Clear Neck: supple, no adenopathy, no thyromegaly, no JVD CVS/Heart: RRR, normal S1S2, pulses present bilaterally Chest/Lungs: CTA B, Symmetrical chest expansion, good air entry bilaterally GI/Abdomen: soft, NTND, good bowel sounds, no guarding or rebound /Bladder: no suprapubic tenderness, no CVA or paraspinal tenderness Extermity/Skin: no c/c/e, no obvious rash MSK: FROM x 4 Neuro: CN 2-12 grossly intact, no new focal deficits Psych: calm - Constitutional Vitals: Temp Pulse Resp BP Pulse Ox 97.7 F 75 20 148/78 95 09/28/19 11:41 09/28/19 11:41 09/28/19 11:41 09/28/19 11:41 09/28/19 11:41 General appearance: Present: obese Results - Labs CBC & Chem 7: 09/26/19 06:06 09/26/19 09:40 Labs: Laboratory Last Values WBC 9.0 K/mm3 (4.5-11.0) 09/26/19 06:06 RBC 3.44 M/mm3 (3.65-5.03) L 09/26/19 06:06 Hgb 11.2 gm/dl (11.8-15.2) L 09/26/19 06:06 Hct 32.4 % (35.5-45.6) L 09/26/19 06:06 MCV 94 fl (84-94) 09/26/19 06:06 MCH 33 pg (28-32) H 09/26/19 06:06 MCHC 35 % (32-34) H 09/26/19 06:06 RDW 12.9 % (13.2-15.2) L 09/26/19 06:06 Plt Count 499 K/mm3 (140-440) H 09/26/19 06:06 Add Manual Diff Complete 09/26/19 06:06 Total Counted 100 09/26/19 06:06 Seg Neuts % (Manual) 84.0 % (40.0-70.0) H 09/26/19 06:06 Band Neutrophils % 2.0 % 09/26/19 06:06 Lymphocytes % (Manual) 6.0 % (13.4-35.0) L 09/26/19 06:06 Reactive Lymphs % (Man) 3.0 % 09/26/19 06:06 Monocytes % (Manual) 3.0 % (0.0-7.3) 09/26/19 06:06 Eosinophils % (Manual) 2.0 % (0.0-4.3) 09/26/19 06:06 Basophils % (Manual) 0 % (0.0-1.8) 09/26/19 06:06 Metamyelocytes % 0 % 09/26/19 06:06 Myelocytes % 0 % 09/26/19 06:06 Promyelocytes % 0 % 09/26/19 06:06 Blast Cells % 0 % 09/26/19 06:06 Nucleated RBC % Not Reportable 09/26/19 06:06 Seg Neutrophils # Man 7.6 K/mm3 (1.8-7.7) 09/26/19 06:06 Band Neutrophils # 0.2 K/mm3 09/26/19 06:06 Lymphocytes # (Manual) 0.5 K/mm3 (1.2-5.4) L 09/26/19 06:06 Abs React Lymphs (Man) 0.3 K/mm3 09/26/19 06:06 Monocytes # (Manual) 0.3 K/mm3 (0.0-0.8) 09/26/19 06:06 Eosinophils # (Manual) 0.2 K/mm3 (0.0-0.4) 09/26/19 06:06 Basophils # (Manual) 0.0 K/mm3 (0.0-0.1) 09/26/19 06:06 Metamyelocytes # 0.0 K/mm3 09/26/19 06:06 Myelocytes # 0.0 K/mm3 09/26/19 06:06 Promyelocytes # 0.0 K/mm3 09/26/19 06:06 Blast Cells # 0.0 K/mm3 09/26/19 06:06 WBC Morphology Not Reportable 09/26/19 06:06 Hypersegmented Neuts Not Reportable 09/26/19 06:06 Hyposegmented Neuts Not Reportable 09/26/19 06:06 Hypogranular Neuts Not Reportable 09/26/19 06:06 Smudge Cells Not Reportable 09/26/19 06:06 Toxic Granulation Not Reportable 09/26/19 06:06 Toxic Vacuolation Not Reportable 09/26/19 06:06 Dohle Bodies Not Reportable 09/26/19 06:06 Pelger-Huet Anomaly Not Reportable 09/26/19 06:06 Mili Rods Not Reportable 09/26/19 06:06 Platelet Estimate Consistent w auto 09/26/19 06:06 Clumped Platelets Not Reportable 09/26/19 06:06 Plt Clumps, EDTA Not Reportable 09/26/19 06:06 Large Platelets Not Reportable 09/26/19 06:06 Giant Platelets Not Reportable 09/26/19 06:06 Platelet Satelliting Not Reportable 09/26/19 06:06 Plt Morphology Comment Not Reportable 09/26/19 06:06 RBC Morphology Normal 09/26/19 06:06 Dimorphic RBCs Not Reportable 09/26/19 06:06 Polychromasia Not Reportable 09/26/19 06:06 Hypochromasia Not Reportable 09/26/19 06:06 Poikilocytosis Not Reportable 09/26/19 06:06 Anisocytosis Not Reportable 09/26/19 06:06 Microcytosis Not Reportable 09/26/19 06:06 Macrocytosis Not Reportable 09/26/19 06:06 Spherocytes Not Reportable 09/26/19 06:06 Pappenheimer Bodies Not Reportable 09/26/19 06:06 Sickle Cells Not Reportable 09/26/19 06:06 Target Cells Not Reportable 09/26/19 06:06 Tear Drop Cells Not Reportable 09/26/19 06:06 Ovalocytes Not Reportable 09/26/19 06:06 Helmet Cells Not Reportable 09/26/19 06:06 [place] Bodies Not Reportable 09/26/19 06:06 [place] Rings Not Reportable 09/26/19 06:06 [place] Cells Not Reportable 09/26/19 06:06 Bite Cells Not Reportable 09/26/19 06:06 Crenated Cell Not Reportable 09/26/19 06:06 Elliptocytes Not Reportable 09/26/19 06:06 Acanthocytes (Spur) Not Reportable 09/26/19 06:06 Rouleaux Not Reportable 09/26/19 06:06 Hemoglobin C Crystals Not Reportable 09/26/19 06:06 Schistocytes Not Reportable 09/26/19 06:06 Malaria parasites Not Reportable 09/26/19 06:06 [place] Bodies Not Reportable 09/26/19 06:06 Hem Pathologist Commnt No 09/26/19 06:06 PT 14.8 Sec. (12.2-14.9) 09/22/19 19:00 INR 1.17 (0.87-1.13) H 09/22/19 19:00 VBG pH 7.354 (7.320-7.420) 09/22/19 19:00 Sodium 137 mmol/L (137-145) D 09/26/19 09:40 Potassium 3.1 mmol/L (3.6-5.0) L D 09/26/19 09:40 Chloride 99.5 mmol/L (98-107) 09/26/19 09:40 Carbon Dioxide 24 mmol/L (22-30) 09/26/19 09:40 Anion Gap 17 mmol/L 09/26/19 09:40 BUN 9 mg/dL (9-20) 09/26/19 09:40 Creatinine 0.8 mg/dL (0.8-1.5) 09/26/19 09:40 Estimated GFR > 60 ml/min 09/26/19 09:40 BUN/Creatinine Ratio 11 % 09/26/19 09:40 Glucose 113 mg/dL (75-100) H 09/26/19 09:40 POC Glucose 114 (70-105) H 09/28/19 16:36 Hemoglobin A1c 12.6 % (4-6) H 09/26/19 06:06 Lactic Acid 1.20 mmol/L (0.7-2.0) 09/23/19 04:26 Calcium 7.5 mg/dL (8.4-10.2) L D 09/26/19 09:40 Total Bilirubin 0.40 mg/dL (0.1-1.2) 09/22/19 19:00 AST 51 units/L (5-40) H 09/22/19 19:00 ALT 48 units/L (7-56) 09/22/19 19:00 Alkaline Phosphatase 128 units/L (35-129) 09/22/19 19:00 Total Protein 7.9 g/dL (6.3-8.2) 09/22/19 19:00 Albumin 2.3 g/dL (3.9-5) L 09/22/19 19:00 Albumin/Globulin Ratio 0.4 % 09/22/19 19:00 Urine Color Yellow (Yellow) 09/23/19 Unknown Urine Turbidity Clear (Clear) 09/23/19 Unknown Urine pH 6.0 (5.0-7.0) 09/23/19 Unknown Ur Specific [place] 1.035 (1.003-1.030) H 09/23/19 Unknown Urine Protein 30 mg/dl mg/dL (Negative) 09/23/19 Unknown Urine Glucose (UA) >=500 mg/dL (Negative) 09/23/19 Unknown Urine Ketones Neg mg/dL (Negative) 09/23/19 Unknown Urine Blood Sm (Negative) 09/23/19 Unknown Urine Nitrite Neg (Negative) 09/23/19 Unknown Urine Bilirubin Neg (Negative) 09/23/19 Unknown Urine Urobilinogen < 2.0 mg/dL (<2.0) 09/23/19 Unknown Ur Leukocyte Esterase Neg (Negative) 09/23/19 Unknown Urine WBC (Auto) 1.0 /HPF (0.0-6.0) 09/23/19 Unknown Urine RBC (Auto) 2.0 /HPF (0.0-6.0) 09/23/19 Unknown Vancomycin Trough 16.4 ug/mL (5.0-20.0) 09/26/19 09:40 Active Medications - Current Medications Current Medications: Generic Name Dose Route Start Last Admin Trade Name Freq PRN Reason Stop Dose Admin Acetaminophen 650 mg 09/22/19 23:43 Tylenol PO Q4H PRN Pain MILD(1-3)/Fever >100.5/SALINAS Albuterol 2.5 mg 09/22/19 23:43 Proventil IH Q4HRT PRN Shortness Of Breath Amlodipine Besylate 10 mg 09/23/19 10:00 09/28/19 10:40 Amlodipine PO Not Given DAILY KAREN Dextrose 0 ml 09/22/19 23:45 D50w (25gm) Syringe IV Q30MIN PRN Hypoglycemia Protocol Enoxaparin Sodium 40 mg 09/29/19 22:00 Enoxaparin SUB-Q QDAY@2200 [facility] Hydromorphone HCl 1 mg 09/24/19 18:01 09/27/19 16:44 Dilaudid IV 1 mg Q4H PRN Administration Pain , Severe (7-10) Ceftriaxone Sodium 2 gm in 100 mls @ 200 mls/hr 09/27/19 14:00 09/28/19 15:22 Rocephin/Ns 2 Gm/100 Ml IV 200 mls/hr Q24H KAREN Administration Protocol Insulin Glargine 35 units 09/25/19 22:00 09/28/19 09:23 Lantus SUB-Q 35 units Q12HR KAREN Administration Insulin Human Lispro 0 unit 09/24/19 22:00 09/28/19 17:41 Humalog SUB-Q Not Given ACHS [facility] Protocol Insulin Human Lispro 8 unit 09/25/19 16:30 09/28/19 11:18 Humalog SUB-Q 8 unit AC KAREN Administration Ondansetron HCl 4 mg 09/22/19 23:43 Zofran IV Q8H PRN Nausea And Vomiting Oxycodone/Acetaminophen 2 tab 09/24/19 12:32 09/28/19 15:12 Percocet 5/325 PO 2 tab Q6H PRN Administration Pain, Moderate (4-6) Sodium Chloride 10 ml 09/23/19 10:00 09/28/19 15:22 Sodium Chloride Flush Syringe 10 Ml IV 10 ml BID KAREN Administration Sodium Chloride 10 ml 09/22/19 23:43 09/25/19 14:21 Sodium Chloride Flush Syringe 10 Ml IV 10 ml PRN PRN Administration LINE FLUSH Sodium Hypochlorite 1 applic 09/24/19 10:00 09/27/19 18:33 Dakin's Half Strength TP 1 dose DAILY KAREN Administration Nutrition/Malnutrition Assess - Dietary Evaluation Nutrition/Malnutrition Findings: Nutrition Notes Start: 09/26/19 09:49 Freq: Status: Active Protocol: Document 09/28/19 11:08 SUNDAY (Rec: 09/28/19 11:28 [place] [id number]) Co-Sign 09/28/19 11:08 GAGAN Nutrition Notes Initial or Follow up Reassessment Current Diagnosis Diabetes,Hypertension Other Pertinent Diagnosis buttock wound Current Diet Consistent CHO Labs/Tests POC Glu 81 Pertinent Medications Lantus Humalog Dilaudid Height 5 ft 8 in Weight 120.565 kg [place] Body Weight (kg) 70.00 BMI 40.4 Subjective/Other Information F/U for PO intakes. Pt reports moderate appetite and consuming 50% of meals. Pt denies N/V/D. Pt open to ONS. Pt lethargic at time of visit, will follow up at later time for diet education reinforcement. Percent of energy/protein needs met: 48%/44% Burn Absent Trauma Absent GI Symptoms None Minimum of two criteria No physical signs of malnutrition #3 Nutrition Diagnosis Inadequate oral intake As Evidenced by Signs and Symptoms pt eating 50% of meals Diagnosis Progress(for reassessment Improved documentation) #2 Nutrition Diagnosis Food and nutrition-related knowledge deficit Diagnosis Progress(for reassessment Continues documentation) #1 Nutrition Diagnosis Increased nutrient needs ( specify in comment below) Comments: pro Etiology wound healing As Evidenced by Signs and Symptoms buttocks wound Is patient on ventilator? No Is Patient Ambulatory and/or Out of Bed Yes REE-([place]-St. Jeor-ambulatory/OOB) [ 2665.195 NUTR.[id number]] Kcal/Kg value to use for calculation 18 Approximate Energy Requirements Using 2170 kcal/Kg Calculation Used for Recommendations Kcal/kg Additional Notes PRO needs: 103-123g (1.25-1.5g /kg AdjBW 82.5kg) Fluid needs: 1 ml/kcal Nutrition Intervention Change Diet Order: Continue Current Diet Add Supplement/Snack (indicate name/kcal Add Vish and Ensure Clear BID /protein ) . Provides kCal: 670 Provides Protein (gm) 21 Goal #1 Meet at least 75% of kcal/pro needs Goal #2 Wound healing Anticipated Discharge Needs: Consistent CHO Diet Follow-Up By: 10/03/19 Additional Comments Follow for PO and ONS intakes, wound healing, and further education questions
[2019-09-28] MEDS: SODIUM HYPOCHLORITE, DAKIN'S 1/2 STRENGTH (0.25%) 473 ML TOPICAL SOLN TP SCH (18:37)
[2019-09-28] MEDS: HYDROmorphone 1 MG/1 ML INJ IV PRN (18:54)
--- NOTE | 2019-09-29 08:45 | Progress Note ---
Assessment and Plan - Patient Problems (1) Left buttock abscess Current Visit: Yes Status: Acute Plan to address problem: Pt stable. s/p left buttock I&D, debridement - 09/23 - POD#6. Plan for OR debridement today. Reminded him not to have any liquids after 10am. Pt not motivated to help himself. Confronted him about his lack of participation in his care. Told him that he needs to walk and get up to the bathroom. There is no reason he should be laying in bed all day. He is at risk for treatment failure as he is not motivated to take care of h imself. Please call with questions. Subjective Date of service: 09/29/19 Patient Reports: Positive: no new complaints, other (Pt is not getting out of bed. No reason why) Objective Vital Signs - 12hr 09/28/19 09/29/19 09/29/19 23:57 05:10 07:11 Temperature 97.5 F L 98.0 F 97.9 F Pulse Rate 73 65 69 Respiratory 19 19 18 Rate Blood Pressure 143/74 147/68 133/63 O2 Sat by Pulse 96 94 95 Oximetry - General physical appearance no distress, no pain - Respiratory normal expansion, normal respiratory effort - Psychiatric oriented to time, oriented to person, oriented to place, speech is normal, memory intact - Labs 09/26/19 06:06 09/26/19 09:40
[2019-09-29] MEDS: INSULIN GLARGINE 100 UNITS/ML SUB-Q SCH ×2 (09:47→22:00)
[2019-09-29] MEDS: HYDROmorphone 1 MG/1 ML INJ IV PRN ×3 (09:51→17:56)
[2019-09-29] MEDS: amLODIPine 10 MG TAB PO SCH (09:54)
[2019-09-29] MEDS: SODIUM HYPOCHLORITE, DAKIN'S 1/2 STRENGTH (0.25%) 473 ML TOPICAL SOLN TP SCH ×2 (09:55→18:00)
--- NOTE | 2019-09-29 11:30 | Anesthesia Day of Surgery ---
Anesthesia Day of Surgery - Day of Surgery Patient Examined: Yes Patient H&P Reviewed: Yes Patient is NPO: Yes
[2019-09-29] MEDS ORDERED: fentaNYL 100 MCG/2 ML INJ IV PRN (11:31)
[2019-09-29] MEDS ORDERED: BUPIVACAINE-EPINEPHRINE/PF 0.5%-1:200,000 (30 ML) VIAL INFILTRATI ONE (11:36)
[2019-09-29] MEDS ORDERED: BACTERIOSTATIC SODIUM CHLORIDE 0.9% 30 ML VIAL INFILTRATI ONE (11:42)
[2019-09-29] MEDS: INSULIN LISPRO 100 UNIT/ML SUB-Q SCH ×7 (11:43→22:00)
[2019-09-29] MEDS ORDERED: PROPOFOL 200 MG/20 ML VIAL IV ONE (11:46)
[2019-09-29] MEDS ORDERED: LIDOCAINE MPF (2%) 20 MG/1 ML VIAL 5 ML ONE (11:47)
[2019-09-29] MEDS: LACTATED RINGERS 1,000 ML IV SCH ×2 (11:50→17:00)
[2019-09-29] MEDS ORDERED: MIDAZOLAM 2 MG/2 ML INJ IV NR (12:00)
[2019-09-29] MEDS ORDERED: SODIUM CHLORIDE 0.9% IRR 1,000 ML BOTTLE IR ONE (12:20)
--- NOTE | 2019-09-29 12:48 | Post Operative Note ---
Date of procedure: 09/29/19 (dictation:[id number]) Pre-op diagnosis: left buttock soft tissue necrotizing infection Post-op diagnosis: same Findings: Much spice cleaner wound with fibrinous exudate and some necrotic tissue Procedure: Debridement of left buttock abscess wound IVF 500cc EBL min Anesthesia: GETA Surgeon: PAO BANERJEE Estimated blood loss: minimal Pathology: none Condition: stable Disposition: PACU
[2019-09-29] MEDS: cefTRIAXone/NS 2 GM/100 ML 2 GM/100 ML BAG IV SCH (13:26)
[2019-09-29] MEDS: oxyCODONE /ACETAMINOPHEN 5-325MG TAB PO PRN ×2 (13:50→23:12)
--- NOTE | 2019-09-29 15:36 | Operative Report ---
PREOPERATIVE DIAGNOSIS: Left buttock soft tissue necrotizing infection. POSTOPERATIVE DIAGNOSIS: Left buttock soft tissue necrotizing infection. PROCEDURE: Debridement of left buttock soft tissue infection. ATTENDING PHYSICIAN: Salome Reilly MD ANESTHESIA: General. ESTIMATED BLOOD LOSS: Minimal. FLUIDS: 500 mL. FINDINGS: Moderate amount of fibrinous exudate with a few small areas of necrotic tissue. Wound was overall much better compared to our initial incision and drainage. DRAINS: None. SPECIMENS: None. COMPLICATIONS: None. DISPOSITION: Stable, transferred to Recovery Room. INDICATIONS: This is a 48-year-old male who presented with uncontrolled diabetes and a necrotizing soft tissue infection. The patient was taken to the operating room approximately 1 week ago for incision, drainage and debridement. He now returns for another round of debridement. Procedure, risks, benefits were explained to the patient. Risks included but were not limited to infection, bleeding, pain, injury to surrounding structures, possible need for further procedures in the future. The patient understood and consented. OPERATIVE NOTE: The patient was brought to the operating room and placed on the table in supine position. After adequate general anesthesia was established, the patient was placed in left lateral decubitus position. All pressure points were padded. Axillary roll was placed. Sterile prep and drape was performed. SCDs were in place. The patient was already on antibiotics. Timeout was called. I began by sharply debriding the fibrinous exudate and a few areas of necrotic tissue that were left. Thereafter a large curette was used to further debride the wound. At the end, the wound had a fairly clean appearance, mostly red appearing tissue. There was a little bit of fibrinous exudate left, but it was very thin and well adhered to the underlying tissue. We made sure there were no other tracts or pockets that needed to be opened up. The wound was thoroughly irrigated. Moist Kerlix was then placed with additional dressings. The patient tolerated the procedure well. There were no complications. All counts were correct at the end of the case. JOB# [id number] ZACHARY/ZEE
--- NOTE | 2019-09-29 15:57 | Progress Note ---
Assessment and Plan Assessment and plan: Patient is a 48-year-old man with diabetes who presents to the hospital with left buttock swelling and pain. He then had a break in his skin and it was draining foul-smelling liquid Sepsis -Continue sepsis protocol, continue antibiotics, ID consult appreciated -Gram-positive bacteremia, discussed with ID, repeat cultures ordered, echo ordered Left buttock abscess Status post I&D by general surgery on 09/23, continue local wound care, follow- up with surgical cultures -Case discussed with general surgeon, patient will likely need further debridements, they will follow along and decide based on how patient progresses Uncontrolled diabetes with persistent hyperglycemia -Optimize insulins Hypertension continue BP meds Pain control; continue pain medications Severe malnutrition, albumin 2.3 Dietitian consult DVT prophylaxis changed for surgery History Interval history: Patient was seen and examined. Follow-up on current diagnosis. No overnight events reported to me. Patient denies any chest pain, shortness breath, nausea/ vomiting or severe headaches. Imaging, nursing note, chart, labs and old chart reviewed. Discussed with patient. Hospitalist Physical - Physical exam Narrative exam: Gen: WDWN, NAD, Awake, Alert, Orientated HEENT: NCAT, EOMI, PERRL, OP Clear Neck: supple, no adenopathy, no thyromegaly, no JVD CVS/Heart: RRR, normal S1S2, pulses present bilaterally Chest/Lungs: CTA B, Symmetrical chest expansion, good air entry bilaterally GI/Abdomen: soft, NTND, good bowel sounds, no guarding or rebound /Bladder: no suprapubic tenderness, no CVA or paraspinal tenderness Extermity/Skin: no c/c/e, no obvious rash MSK: FROM x 4 Neuro: CN 2-12 grossly intact, no new focal deficits Psych: calm - Constitutional Vitals: Temp Pulse Resp BP Pulse Ox 97.7 F 74 20 168/96 97 09/29/19 13:20 09/29/19 13:20 09/29/19 13:20 09/29/19 13:20 09/29/19 13:20 General appearance: Present: obese Results - Labs CBC & Chem 7: 09/26/19 06:06 09/26/19 09:40 Labs: Laboratory Last Values WBC 9.0 K/mm3 (4.5-11.0) 09/26/19 06:06 RBC 3.44 M/mm3 (3.65-5.03) L 09/26/19 06:06 Hgb 11.2 gm/dl (11.8-15.2) L 09/26/19 06:06 Hct 32.4 % (35.5-45.6) L 09/26/19 06:06 MCV 94 fl (84-94) 09/26/19 06:06 MCH 33 pg (28-32) H 09/26/19 06:06 MCHC 35 % (32-34) H 09/26/19 06:06 RDW 12.9 % (13.2-15.2) L 09/26/19 06:06 Plt Count 499 K/mm3 (140-440) H 09/26/19 06:06 Add Manual Diff Complete 09/26/19 06:06 Total Counted 100 09/26/19 06:06 Seg Neuts % (Manual) 84.0 % (40.0-70.0) H 09/26/19 06:06 Band Neutrophils % 2.0 % 09/26/19 06:06 Lymphocytes % (Manual) 6.0 % (13.4-35.0) L 09/26/19 06:06 Reactive Lymphs % (Man) 3.0 % 09/26/19 06:06 Monocytes % (Manual) 3.0 % (0.0-7.3) 09/26/19 06:06 Eosinophils % (Manual) 2.0 % (0.0-4.3) 09/26/19 06:06 Basophils % (Manual) 0 % (0.0-1.8) 09/26/19 06:06 Metamyelocytes % 0 % 09/26/19 06:06 Myelocytes % 0 % 09/26/19 06:06 Promyelocytes % 0 % 09/26/19 06:06 Blast Cells % 0 % 09/26/19 06:06 Nucleated RBC % Not Reportable 09/26/19 06:06 Seg Neutrophils # Man 7.6 K/mm3 (1.8-7.7) 09/26/19 06:06 Band Neutrophils # 0.2 K/mm3 09/26/19 06:06 Lymphocytes # (Manual) 0.5 K/mm3 (1.2-5.4) L 09/26/19 06:06 Abs React Lymphs (Man) 0.3 K/mm3 09/26/19 06:06 Monocytes # (Manual) 0.3 K/mm3 (0.0-0.8) 09/26/19 06:06 Eosinophils # (Manual) 0.2 K/mm3 (0.0-0.4) 09/26/19 06:06 Basophils # (Manual) 0.0 K/mm3 (0.0-0.1) 09/26/19 06:06 Metamyelocytes # 0.0 K/mm3 09/26/19 06:06 Myelocytes # 0.0 K/mm3 09/26/19 06:06 Promyelocytes # 0.0 K/mm3 09/26/19 06:06 Blast Cells # 0.0 K/mm3 09/26/19 06:06 WBC Morphology Not Reportable 09/26/19 06:06 Hypersegmented Neuts Not Reportable 09/26/19 06:06 Hyposegmented Neuts Not Reportable 09/26/19 06:06 Hypogranular Neuts Not Reportable 09/26/19 06:06 Smudge Cells Not Reportable 09/26/19 06:06 Toxic Granulation Not Reportable 09/26/19 06:06 Toxic Vacuolation Not Reportable 09/26/19 06:06 Dohle Bodies Not Reportable 09/26/19 06:06 Pelger-Huet Anomaly Not Reportable 09/26/19 06:06 Mili Rods Not Reportable 09/26/19 06:06 Platelet Estimate Consistent w auto 09/26/19 06:06 Clumped Platelets Not Reportable 09/26/19 06:06 Plt Clumps, EDTA Not Reportable 09/26/19 06:06 Large Platelets Not Reportable 09/26/19 06:06 Giant Platelets Not Reportable 09/26/19 06:06 Platelet Satelliting Not Reportable 09/26/19 06:06 Plt Morphology Comment Not Reportable 09/26/19 06:06 RBC Morphology Normal 09/26/19 06:06 Dimorphic RBCs Not Reportable 09/26/19 06:06 Polychromasia Not Reportable 09/26/19 06:06 Hypochromasia Not Reportable 09/26/19 06:06 Poikilocytosis Not Reportable 09/26/19 06:06 Anisocytosis Not Reportable 09/26/19 06:06 Microcytosis Not Reportable 09/26/19 06:06 Macrocytosis Not Reportable 09/26/19 06:06 Spherocytes Not Reportable 09/26/19 06:06 Pappenheimer Bodies Not Reportable 09/26/19 06:06 Sickle Cells Not Reportable 09/26/19 06:06 Target Cells Not Reportable 09/26/19 06:06 Tear Drop Cells Not Reportable 09/26/19 06:06 Ovalocytes Not Reportable 09/26/19 06:06 Helmet Cells Not Reportable 09/26/19 06:06 [place] Bodies Not Reportable 09/26/19 06:06 Jackpot Rings Not Reportable 09/26/19 06:06 Ney Cells Not Reportable 09/26/19 06:06 Bite Cells Not Reportable 09/26/19 06:06 Crenated Cell Not Reportable 09/26/19 06:06 Elliptocytes Not Reportable 09/26/19 06:06 Acanthocytes (Spur) Not Reportable 09/26/19 06:06 Rouleaux Not Reportable 09/26/19 06:06 Hemoglobin C Crystals Not Reportable 09/26/19 06:06 Schistocytes Not Reportable 09/26/19 06:06 Malaria parasites Not Reportable 09/26/19 06:06 Nicholas Bodies Not Reportable 09/26/19 06:06 Hem Pathologist Commnt No 09/26/19 06:06 PT 14.8 Sec. (12.2-14.9) 09/22/19 19:00 INR 1.17 (0.87-1.13) H 09/22/19 19:00 VBG pH 7.354 (7.320-7.420) 09/22/19 19:00 Sodium 137 mmol/L (137-145) D 09/26/19 09:40 Potassium 3.1 mmol/L (3.6-5.0) L D 09/26/19 09:40 Chloride 99.5 mmol/L (98-107) 09/26/19 09:40 Carbon Dioxide 24 mmol/L (22-30) 09/26/19 09:40 Anion Gap 17 mmol/L 09/26/19 09:40 BUN 9 mg/dL (9-20) 09/26/19 09:40 Creatinine 0.8 mg/dL (0.8-1.5) 09/26/19 09:40 Estimated GFR > 60 ml/min 09/26/19 09:40 BUN/Creatinine Ratio 11 % 09/26/19 09:40 Glucose 113 mg/dL (75-100) H 09/26/19 09:40 POC Glucose 120 (70-105) H 09/29/19 13:40 Hemoglobin A1c 12.6 % (4-6) H 09/26/19 06:06 Lactic Acid 1.20 mmol/L (0.7-2.0) 09/23/19 04:26 Calcium 7.5 mg/dL (8.4-10.2) L D 09/26/19 09:40 Total Bilirubin 0.40 mg/dL (0.1-1.2) 09/22/19 19:00 AST 51 units/L (5-40) H 09/22/19 19:00 ALT 48 units/L (7-56) 09/22/19 19:00 Alkaline Phosphatase 128 units/L (35-129) 09/22/19 19:00 Total Protein 7.9 g/dL (6.3-8.2) 09/22/19 19:00 Albumin 2.3 g/dL (3.9-5) L 09/22/19 19:00 Albumin/Globulin Ratio 0.4 % 09/22/19 19:00 Urine Color Yellow (Yellow) 09/23/19 Unknown Urine Turbidity Clear (Clear) 09/23/19 Unknown Urine pH 6.0 (5.0-7.0) 09/23/19 Unknown Ur Specific [place] 1.035 (1.003-1.030) H 09/23/19 Unknown Urine Protein 30 mg/dl mg/dL (Negative) 09/23/19 Unknown Urine Glucose (UA) >=500 mg/dL (Negative) 09/23/19 Unknown Urine Ketones Neg mg/dL (Negative) 09/23/19 Unknown Urine Blood Sm (Negative) 09/23/19 Unknown Urine Nitrite Neg (Negative) 09/23/19 Unknown Urine Bilirubin Neg (Negative) 09/23/19 Unknown Urine Urobilinogen < 2.0 mg/dL (<2.0) 09/23/19 Unknown Ur Leukocyte Esterase Neg (Negative) 09/23/19 Unknown Urine WBC (Auto) 1.0 /HPF (0.0-6.0) 09/23/19 Unknown Urine RBC (Auto) 2.0 /HPF (0.0-6.0) 09/23/19 Unknown Vancomycin Trough 16.4 ug/mL (5.0-20.0) 09/26/19 09:40 Active Medications - Current Medications Current Medications: Generic Name Dose Route Start Last Admin Trade Name Freq PRN Reason Stop Dose Admin Acetaminophen 650 mg 09/22/19 23:43 Tylenol PO Q4H PRN Pain MILD(1-3)/Fever >100.5/SALINAS Albuterol 2.5 mg 09/22/19 23:43 Proventil IH Q4HRT PRN Shortness Of Breath Amlodipine Besylate 10 mg 09/23/19 10:00 09/29/19 09:54 Amlodipine PO 10 mg DAILY KAREN Administration Dextrose 0 ml 09/22/19 23:45 D50w (25gm) Syringe IV Q30MIN PRN Hypoglycemia Protocol Enoxaparin Sodium 40 mg 09/29/19 22:00 Enoxaparin SUB-Q QDAY@2200 KAREN Fentanyl 50 mcg 09/29/19 11:31 Sublimaze IV 09/29/19 23:59 Q5MIN PRN Pain , Severe (7-10) Hydromorphone HCl 1 mg 09/24/19 18:01 09/29/19 11:52 Dilaudid IV 1 mg Q4H PRN Administration Pain , Severe (7-10) Ceftriaxone Sodium 2 gm in 100 mls @ 200 mls/hr 09/27/19 14:00 09/29/19 13:26 Rocephin/Ns 2 Gm/100 Ml IV 200 mls/hr Q24H KAREN Administration Protocol Lactated Ringer's 1,000 mls @ 125 mls/hr 09/29/19 12:00 09/29/19 11:50 Lactated Ringers IV 125 mls/hr DIRECT KAREN Administration Insulin Glargine 35 units 09/25/19 22:00 09/29/19 09:47 Lantus SUB-Q 35 units Q12HR KAREN Administration Insulin Human Lispro 0 unit 09/24/19 22:00 09/29/19 11:44 Humalog SUB-Q Not Given ACHS [facility] Protocol Insulin Human Lispro 8 unit 09/25/19 16:30 09/29/19 11:44 Humalog SUB-Q Not Given AC KAREN Midazolam HCl 2 mg 09/29/19 12:00 09/29/19 11:50 Versed IV 09/29/19 23:59 2 mg PREOP NR Administration Ondansetron HCl 4 mg 09/22/19 23:43 Zofran IV Q8H PRN Nausea And Vomiting Oxycodone/Acetaminophen 2 tab 09/24/19 12:32 09/29/19 13:50 Percocet 5/325 PO 2 tab Q6H PRN Administration Pain, Moderate (4-6) Sodium Chloride 10 ml 09/23/19 10:00 09/29/19 09:56 Sodium Chloride Flush Syringe 10 Ml IV 10 ml BID KAREN Administration Sodium Chloride 10 ml 09/22/19 23:43 09/25/19 14:21 Sodium Chloride Flush Syringe 10 Ml IV 10 ml PRN PRN Administration LINE FLUSH Sodium Hypochlorite 1 applic 09/24/19 10:00 09/29/19 09:55 Dakin's Half Strength TP 1 dose DAILY KAERN Administration Nutrition/Malnutrition Assess - Dietary Evaluation Nutrition/Malnutrition Findings: Nutrition Notes Start: 09/26/19 09:49 Freq: Status: Active Protocol: Document 09/28/19 11:08 UT (Rec: 09/28/19 11:28 [email or web address]-[email or web address]) Co-Sign 09/28/19 11:08 Nutrition Notes Initial or Follow up Reassessment Current Diagnosis Diabetes,Hypertension Other Pertinent Diagnosis buttock wound Current Diet Consistent CHO Labs/Tests POC Glu 81 Pertinent Medications Lantus Humalog Dilaudid Height 5 ft 8 in Weight 120.565 kg [place] Body Weight (kg) 70.00 BMI 40.4 Subjective/Other Information F/U for PO intakes. Pt reports moderate appetite and consuming 50% of meals. Pt denies N/V/D. Pt open to ONS. Pt lethargic at time of visit, will follow up at later time for diet education reinforcement. Percent of energy/protein needs met: 48%/44% Burn Absent Trauma Absent GI Symptoms None Minimum of two criteria No physical signs of malnutrition #3 Nutrition Diagnosis Inadequate oral intake As Evidenced by Signs and Symptoms pt eating 50% of meals Diagnosis Progress(for reassessment Improved documentation) #2 Nutrition Diagnosis Food and nutrition-related knowledge deficit Diagnosis Progress(for reassessment Continues documentation) #1 Nutrition Diagnosis Increased nutrient needs ( specify in comment below) Comments: pro Etiology wound healing As Evidenced by Signs and Symptoms buttocks wound Is patient on ventilator? No Is Patient Ambulatory and/or Out of Bed Yes REE-([place]-St. Jeor-ambulatory/OOB) [ 2665.195 NUTR.[id number]] Kcal/Kg value to use for calculation 18 Approximate Energy Requirements Using 2170 kcal/Kg Calculation Used for Recommendations Kcal/kg Additional Notes PRO needs: 103-123g (1.25-1.5g /kg AdjBW 82.5kg) Fluid needs: 1 ml/kcal Nutrition Intervention Change Diet Order: Continue Current Diet Add Supplement/Snack (indicate name/kcal Add Vish and Ensure Clear BID /protein ) . Provides kCal: 670 Provides Protein (gm) 21 Goal #1 Meet at least 75% of kcal/pro needs Goal #2 Wound healing Anticipated Discharge Needs: Consistent CHO Diet Follow-Up By: 10/03/19 Additional Comments Follow for PO and ONS intakes, wound healing, and further education questions
--- NOTE | 2019-09-29 18:59 | Progress Note ---
Assessment and Plan Cultures Blood culture 09/22/2019: Streptococcus salivarius Wound culture 09/23/2019: mixed Gram stain: culture with just skin christian. 09/25/2019 Blood culture: no growth Assessment: 48 yo M PMhx obesity, DM2 admitted for severe soft tissue infection of the buttock. # Acute sepsis - present with fever and leukocytosis. Secondary to necrotizing soft tissue infection of the left buttock # Necrotizing cellulitis/infection of left buttock - s/p debridement. Surgery following. Had additional debridement 09/29/2019, findings "Much janitorial cleaner wound with fibrinous exudate and some necrotic tissue" # DM2 - recommend tight glycemic control for improved wound healing # Streptococcus salivarius bacteremia: secondary to above. TTE unremarkable for vegetations or valvular issues. Recs: - continue IV Ceftriaxone 2 gm daily, today is day 7 - will complete total of 14 days of abx due to the bacteremia - continue glycemic control Summer Samuel MD, FACP [facility], [place], [facility] C: [phone] O: [phone] F: [phone] Subjective Date of service: 09/29/19 Interval history: Went to OR today, findings "Much janitorial cleaner wound with fibrinous exudate and some necrotic tissue". No fever. Pain present but well controlled. Objective - Exam Narrative Exam: Physical Exam: Constitutional: Alert, cooperative. No acute distress. Obese Head, Ears, Nose: Normocephalic, atraumatic. External ears, nose normal Eyes: Conjunctivae/corneas clear. No icterus. No ptosis. Neck: Supple, no meningeal signs Oral: no thrush Cardiovascular: S1, S2 normal. Respiratory: Good air entry, clear to auscultation bilaterally GI: Soft, non-tender; bowel sounds normal. No peritoneal signs Musculoskeletal: Left buttock with dressing Skin: No rash or abscess Hem/Lymphatic: No palpable cervical or supraclavicular nodes. No lymphangitis Psych: Mood ok. Affect normal Neurological: Awake, alert, oriented. No gross abnormality - Constitutional Vitals: Vital Signs Temp Pulse Resp BP Pulse Ox 97.8 F 70 18 138/76 96 09/29/19 16:06 09/29/19 16:06 09/29/19 16:06 09/29/19 16:06 09/29/19 16:06 Temperature -Last 24 Hours Temperature 97.8 F Temperature 97.7 F Temperature 98.1 F Temperature 97.7 F Temperature 98.1 F Temperature 97.9 F Temperature 97.9 F Temperature 98.0 F Temperature 97.5 F Temperature 97.8 F - Labs CBC & Chem 7: 09/26/19 06:06 09/26/19 09:40 Labs: Abnormal lab results 09/29/19 09/29/19 09/29/19 Range/Units 11:57 13:40 17:08 POC Glucose 150 H 120 H 110 H (70-105)
--- NOTE | 2019-09-29 21:05 | Post Anesthesia Evaluation ---
- Post Anesthesia Evaluation Patient Participated: Yes Airway Patent: Yes Stable Respiratory Function: Yes Nausea/Vomiting: No Temp > 96.8F: Yes Pain Manageable: Yes Adequeate Hydration: Yes Anesthesia Complications: No Block Receding Appropriately: Not Applicable Patient on Ventilator: No
[2019-09-29] MEDS: ENOXAPARIN 40 MG/0.4 ML INJ SUB-Q SCH (22:00)
[2019-09-30] MEDS: INSULIN LISPRO 100 UNIT/ML SUB-Q SCH ×7 (07:57→22:42)
[2019-09-30] MEDS: HYDROmorphone 1 MG/1 ML INJ IV PRN (08:31)
[2019-09-30] MEDS: LACTATED RINGERS 1,000 ML IV SCH ×2 (09:36→18:46)
[2019-09-30] MEDS: oxyCODONE /ACETAMINOPHEN 5-325MG TAB PO PRN ×3 (09:37→22:39)
[2019-09-30] MEDS: amLODIPine 10 MG TAB PO SCH (09:37)
[2019-09-30] MEDS: SODIUM HYPOCHLORITE, DAKIN'S 1/2 STRENGTH (0.25%) 473 ML TOPICAL SOLN TP SCH (09:38)
[2019-09-30] MEDS: INSULIN GLARGINE 100 UNITS/ML SUB-Q SCH ×2 (09:38→22:37)
--- NOTE | 2019-09-30 09:42 | Progress Note ---
Assessment and Plan - Patient Problems (1) Left buttock abscess Current Visit: Yes Status: Acute Plan to address problem: Pt stable. s/p left buttock I&D, debridement - 09/23 - POD#7; s/p debridement of buttock wound - 09/29 - POD#1. Rec: 1) Daily dressing changes with Dakins this 2) Wound vac to be applied by [facility] on Wednesday. 3) May discharge home from surgical standpoint on Wednesday if Home Wound Vac arrangements already made. He is at risk for treatment failure as he is not motivated to take care of himself. Please call with questions. Subjective Date of service: 09/30/19 Patient Reports: Positive: still having pain Objective Vital Signs - 12hr 09/29/19 09/30/19 09/30/19 23:12 00:03 00:12 Temperature 98.8 F Pulse Rate 91 H Respiratory 18 17 18 Rate Blood Pressure 129/50 Blood Pressure [Right] O2 Sat by Pulse 93 Oximetry 09/30/19 09/30/19 09/30/19 04:49 07:08 08:13 Temperature 97.9 F 98.8 F 98.8 F Pulse Rate 79 78 75 Respiratory 17 18 18 Rate Blood Pressure 134/74 163/96 Blood Pressure 163/96 [Right] O2 Sat by Pulse 94 94 95 Oximetry - General physical appearance no distress, no pain - Respiratory normal expansion, normal respiratory effort - Labs 09/26/19 06:06 09/26/19 09:40
--- NOTE | 2019-09-30 12:57 | Progress Note ---
Assessment and Plan Assessment and plan: Patient is a 48-year-old man with IDDM who presents to the hospital with left buttock swelling and pain. He then had a break in his skin and it was draining foul-smelling liquid Sepsis -Continue sepsis protocol, continue antibiotics, ID consult appreciated -Gram-positive bacteremia, discussed with ID, repeat cultures ordered, echo ordered Left buttock abscess s/p left buttock I&D, excisional debridement on 09/23 and then another excisional debridement of buttock wound on 09/29/19 Uncontrolled diabetes with persistent hyperglycemia -Optimize insulins Hypertension continue BP meds Pain control; continue pain medications Severe malnutrition, albumin 2.3 Dietitian consult Morbid Obesity, BMI 40.4 counseling done DVT prophylaxis reviewed Disposition: continue inpatient care, this weekend wet to dry dressing and May discharge home on Wednesday if Home Wound Vac arrangements set up History Interval history: Patient was seen and examined. Follow-up on current diagnosis. No overnight kriss nts reported to me. Patient denies any chest pain, shortness breath, nausea/vomiting or severe headaches. Imaging, nursing note, chart, labs and old chart reviewed. Discussed with patient. Hospitalist Physical - Physical exam Narrative exam: Gen: WDWN, NAD, Awake, Alert, Orientated HEENT: NCAT, EOMI, PERRL, OP Clear Neck: supple, no adenopathy, no thyromegaly, no JVD CVS/Heart: RRR, normal S1S2, pulses present bilaterally Chest/Lungs: CTA B, Symmetrical chest expansion, good air entry bilaterally GI/Abdomen: soft, NTND, good bowel sounds, no guarding or rebound /Bladder: no suprapubic tenderness, no CVA or paraspinal tenderness Extermity/Skin: no c/c/e, no obvious rash MSK: FROM x 4 Neuro: CN 2-12 grossly intact, no new focal deficits Psych: calm - Constitutional Vitals: Temp Pulse Resp BP Pulse Ox 97.8 F 74 16 141/90 94 09/30/19 11:14 09/30/19 11:14 09/30/19 11:14 09/30/19 11:14 09/30/19 11:14 General appearance: Present: obese Results - Labs CBC & Chem 7: 09/26/19 06:06 09/26/19 09:40 Labs: Laboratory Last Values WBC 9.0 K/mm3 (4.5-11.0) 09/26/19 06:06 RBC 3.44 M/mm3 (3.65-5.03) L 09/26/19 06:06 Hgb 11.2 gm/dl (11.8-15.2) L 09/26/19 06:06 Hct 32.4 % (35.5-45.6) L 09/26/19 06:06 MCV 94 fl (84-94) 09/26/19 06:06 MCH 33 pg (28-32) H 09/26/19 06:06 MCHC 35 % (32-34) H 09/26/19 06:06 RDW 12.9 % (13.2-15.2) L 09/26/19 06:06 Plt Count 499 K/mm3 (140-440) H 09/26/19 06:06 Add Manual Diff Complete 09/26/19 06:06 Total Counted 100 09/26/19 06:06 Seg Neuts % (Manual) 84.0 % (40.0-70.0) H 09/26/19 06:06 Band Neutrophils % 2.0 % 09/26/19 06:06 Lymphocytes % (Manual) 6.0 % (13.4-35.0) L 09/26/19 06:06 Reactive Lymphs % (Man) 3.0 % 09/26/19 06:06 Monocytes % (Manual) 3.0 % (0.0-7.3) 09/26/19 06:06 Eosinophils % (Manual) 2.0 % (0.0-4.3) 09/26/19 06:06 Basophils % (Manual) 0 % (0.0-1.8) 09/26/19 06:06 Metamyelocytes % 0 % 09/26/19 06:06 Myelocytes % 0 % 09/26/19 06:06 Promyelocytes % 0 % 09/26/19 06:06 Blast Cells % 0 % 09/26/19 06:06 Nucleated RBC % Not Reportable 09/26/19 06:06 Seg Neutrophils # Man 7.6 K/mm3 (1.8-7.7) 09/26/19 06:06 Band Neutrophils # 0.2 K/mm3 09/26/19 06:06 Lymphocytes # (Manual) 0.5 K/mm3 (1.2-5.4) L 09/26/19 06:06 Abs React Lymphs (Man) 0.3 K/mm3 09/26/19 06:06 Monocytes # (Manual) 0.3 K/mm3 (0.0-0.8) 09/26/19 06:06 Eosinophils # (Manual) 0.2 K/mm3 (0.0-0.4) 09/26/19 06:06 Basophils # (Manual) 0.0 K/mm3 (0.0-0.1) 09/26/19 06:06 Metamyelocytes # 0.0 K/mm3 09/26/19 06:06 Myelocytes # 0.0 K/mm3 09/26/19 06:06 Promyelocytes # 0.0 K/mm3 09/26/19 06:06 Blast Cells # 0.0 K/mm3 09/26/19 06:06 WBC Morphology Not Reportable 09/26/19 06:06 Hypersegmented Neuts Not Reportable 09/26/19 06:06 Hyposegmented Neuts Not Reportable 09/26/19 06:06 Hypogranular Neuts Not Reportable 09/26/19 06:06 Smudge Cells Not Reportable 09/26/19 06:06 Toxic Granulation Not Reportable 09/26/19 06:06 Toxic Vacuolation Not Reportable 09/26/19 06:06 Dohle Bodies Not Reportable 09/26/19 06:06 Pelger-Huet Anomaly Not Reportable 09/26/19 06:06 Mili Rods Not Reportable 09/26/19 06:06 Platelet Estimate Consistent w auto 09/26/19 06:06 Clumped Platelets Not Reportable 09/26/19 06:06 Plt Clumps, EDTA Not Reportable 09/26/19 06:06 Large Platelets Not Reportable 09/26/19 06:06 Giant Platelets Not Reportable 09/26/19 06:06 Platelet Satelliting Not Reportable 09/26/19 06:06 Plt Morphology Comment Not Reportable 09/26/19 06:06 RBC Morphology Normal 09/26/19 06:06 Dimorphic RBCs Not Reportable 09/26/19 06:06 Polychromasia Not Reportable 09/26/19 06:06 Hypochromasia Not Reportable 09/26/19 06:06 Poikilocytosis Not Reportable 09/26/19 06:06 Anisocytosis Not Reportable 09/26/19 06:06 Microcytosis Not Reportable 09/26/19 06:06 Macrocytosis Not Reportable 09/26/19 06:06 Spherocytes Not Reportable 09/26/19 06:06 Pappenheimer Bodies Not Reportable 09/26/19 06:06 Sickle Cells Not Reportable 09/26/19 06:06 Target Cells Not Reportable 09/26/19 06:06 Tear Drop Cells Not Reportable 09/26/19 06:06 Ovalocytes Not Reportable 09/26/19 06:06 Helmet Cells Not Reportable 09/26/19 06:06 [place] Bodies Not Reportable 09/26/19 06:06 [place] Rings Not Reportable 09/26/19 06:06 [place] Cells Not Reportable 09/26/19 06:06 Bite Cells Not Reportable 09/26/19 06:06 Crenated Cell Not Reportable 09/26/19 06:06 Elliptocytes Not Reportable 09/26/19 06:06 Acanthocytes (Spur) Not Reportable 09/26/19 06:06 Rouleaux Not Reportable 09/26/19 06:06 Hemoglobin C Crystals Not Reportable 09/26/19 06:06 Schistocytes Not Reportable 09/26/19 06:06 Malaria parasites Not Reportable 09/26/19 06:06 Nicholas Bodies Not Reportable 09/26/19 06:06 Hem Pathologist Commnt No 09/26/19 06:06 PT 14.8 Sec. (12.2-14.9) 09/22/19 19:00 INR 1.17 (0.87-1.13) H 09/22/19 19:00 VBG pH 7.354 (7.320-7.420) 09/22/19 19:00 Sodium 137 mmol/L (137-145) D 09/26/19 09:40 Potassium 3.1 mmol/L (3.6-5.0) L D 09/26/19 09:40 Chloride 99.5 mmol/L (98-107) 09/26/19 09:40 Carbon Dioxide 24 mmol/L (22-30) 09/26/19 09:40 Anion Gap 17 mmol/L 09/26/19 09:40 BUN 9 mg/dL (9-20) 09/26/19 09:40 Creatinine 0.8 mg/dL (0.8-1.5) 09/26/19 09:40 Estimated GFR > 60 ml/min 09/26/19 09:40 BUN/Creatinine Ratio 11 % 09/26/19 09:40 Glucose 113 mg/dL (75-100) H 09/26/19 09:40 POC Glucose 77 (70-105) 09/30/19 11:25 Hemoglobin A1c 12.6 % (4-6) H 09/26/19 06:06 Lactic Acid 1.20 mmol/L (0.7-2.0) 09/23/19 04:26 Calcium 7.5 mg/dL (8.4-10.2) L D 09/26/19 09:40 Total Bilirubin 0.40 mg/dL (0.1-1.2) 09/22/19 19:00 AST 51 units/L (5-40) H 09/22/19 19:00 ALT 48 units/L (7-56) 09/22/19 19:00 Alkaline Phosphatase 128 units/L (35-129) 09/22/19 19:00 Total Protein 7.9 g/dL (6.3-8.2) 09/22/19 19:00 Albumin 2.3 g/dL (3.9-5) L 09/22/19 19:00 Albumin/Globulin Ratio 0.4 % 09/22/19 19:00 Urine Color Yellow (Yellow) 09/23/19 Unknown Urine Turbidity Clear (Clear) 09/23/19 Unknown Urine pH 6.0 (5.0-7.0) 09/23/19 Unknown Ur Specific [place] 1.035 (1.003-1.030) H 09/23/19 Unknown Urine Protein 30 mg/dl mg/dL (Negative) 09/23/19 Unknown Urine Glucose (UA) >=500 mg/dL (Negative) 09/23/19 Unknown Urine Ketones Neg mg/dL (Negative) 09/23/19 Unknown Urine Blood Sm (Negative) 09/23/19 Unknown Urine Nitrite Neg (Negative) 09/23/19 Unknown Urine Bilirubin Neg (Negative) 09/23/19 Unknown Urine Urobilinogen < 2.0 mg/dL (<2.0) 09/23/19 Unknown Ur Leukocyte Esterase Neg (Negative) 09/23/19 Unknown Urine WBC (Auto) 1.0 /HPF (0.0-6.0) 09/23/19 Unknown Urine RBC (Auto) 2.0 /HPF (0.0-6.0) 09/23/19 Unknown Vancomycin Trough 16.4 ug/mL (5.0-20.0) 09/26/19 09:40 Active Medications - Current Medications Current Medications: Generic Name Dose Route Start Last Admin Trade Name Freq PRN Reason Stop Dose Admin Acetaminophen 650 mg 09/22/19 23:43 Tylenol PO Q4H PRN Pain MILD(1-3)/Fever >100.5/SALINAS Albuterol 2.5 mg 09/22/19 23:43 Proventil IH Q4HRT PRN Shortness Of Breath Amlodipine Besylate 10 mg 09/23/19 10:00 09/30/19 09:37 Amlodipine PO 10 mg DAILY KAREN Administration Dextrose 0 ml 09/22/19 23:45 D50w (25gm) Syringe IV Q30MIN PRN Hypoglycemia Protocol Enoxaparin Sodium 40 mg 09/29/19 22:00 09/29/19 22:00 Enoxaparin SUB-Q 40 mg QDAY@2200 KAREN Administration Hydromorphone HCl 1 mg 09/24/19 18:01 09/30/19 08:31 Dilaudid IV 1 mg Q4H PRN Administration Pain , Severe (7-10) Ceftriaxone Sodium 2 gm in 100 mls @ 200 mls/hr 09/27/19 14:00 09/29/19 13:26 Rocephin/Ns 2 Gm/100 Ml IV 200 mls/hr Q24H KAREN Administration Protocol Lactated Ringer's 1,000 mls @ 125 mls/hr 09/29/19 12:00 09/30/19 09:36 Lactated Ringers IV 125 mls/hr DIRECT KAREN Administration Insulin Glargine 35 units 09/25/19 22:00 09/30/19 09:38 Lantus SUB-Q 35 units Q12HR KAREN Administration Insulin Human Lispro 0 unit 09/24/19 22:00 09/30/19 12:14 Humalog SUB-Q Not Given ACHS [facility] Protocol Insulin Human Lispro 8 unit 09/25/19 16:30 09/30/19 12:14 Humalog SUB-Q Not Given AC KAREN Ondansetron HCl 4 mg 09/22/19 23:43 Zofran IV Q8H PRN Nausea And Vomiting Oxycodone/Acetaminophen 2 tab 09/24/19 12:32 09/30/19 09:37 Percocet 5/325 PO 2 tab Q6H PRN Administration Pain, Moderate (4-6) Sodium Chloride 10 ml 09/23/19 10:00 09/30/19 10:37 Sodium Chloride Flush Syringe 10 Ml IV Not Given BID KAREN Sodium Chloride 10 ml 09/22/19 23:43 09/30/19 08:31 Sodium Chloride Flush Syringe 10 Ml IV 10 ml PRN PRN Administration LINE FLUSH Sodium Hypochlorite 1 applic 09/24/19 10:00 09/30/19 09:38 Dakin's Half Strength TP 1 dose DAILY KAREN Administration Nutrition/Malnutrition Assess - Dietary Evaluation Nutrition/Malnutrition Findings: Nutrition Notes Start: 09/26/19 09:49 Freq: Status: Active Protocol: Document 09/28/19 11:08 [place] (Rec: 09/28/19 11:28 [facility]-[id number]) Co-Sign 09/28/19 11:08 Nutrition Notes Initial or Follow up Reassessment Current Diagnosis Diabetes,Hypertension Other Pertinent Diagnosis buttock wound Current Diet Consistent CHO Labs/Tests POC Glu 81 Pertinent Medications Lantus Humalog Dilaudid Height 5 ft 8 in Weight 120.565 kg [place] Body Weight (kg) 70.00 BMI 40.4 Subjective/Other Information F/U for PO intakes. Pt reports moderate appetite and consuming 50% of meals. Pt denies N/V/D. Pt open to ONS. Pt lethargic at time of visit, will follow up at later time for diet education reinforcement. Percent of energy/protein needs met: 48%/44% Burn Absent Trauma Absent GI Symptoms None Minimum of two criteria No physical signs of malnutrition #3 Nutrition Diagnosis Inadequate oral intake As Evidenced by Signs and Symptoms pt eating 50% of meals Diagnosis Progress(for reassessment Improved documentation) #2 Nutrition Diagnosis Food and nutrition-related knowledge deficit Diagnosis Progress(for reassessment Continues documentation) #1 Nutrition Diagnosis Increased nutrient needs ( specify in comment below) Comments: pro Etiology wound healing As Evidenced by Signs and Symptoms buttocks wound Is patient on ventilator? No Is Patient Ambulatory and/or Out of Bed Yes REE-([place]-St. Jeor-ambulatory/OOB) [ 2665.195 NUTR.[email or web address]] Kcal/Kg value to use for calculation 18 Approximate Energy Requirements Using 2170 kcal/Kg Calculation Used for Recommendations Kcal/kg Additional Notes PRO needs: 103-123g (1.25-1.5g /kg AdjBW 82.5kg) Fluid needs: 1 ml/kcal Nutrition Intervention Change Diet Order: Continue Current Diet Add Supplement/Snack (indicate name/kcal Add Vish and Ensure Clear BID /protein ) . Provides kCal: 670 Provides Protein (gm) 21 Goal #1 Meet at least 75% of kcal/pro needs Goal #2 Wound healing Anticipated Discharge Needs: Consistent CHO Diet Follow-Up By: 10/03/19 Additional Comments Follow for PO and ONS intakes, wound healing, and further education questions
[2019-09-30] MEDS: cefTRIAXone/NS 2 GM/100 ML 2 GM/100 ML BAG IV SCH (13:30)
[2019-09-30] MEDS: ENOXAPARIN 40 MG/0.4 ML INJ SUB-Q SCH (22:40)
[2019-10-01] MEDS: INSULIN LISPRO 100 UNIT/ML SUB-Q SCH ×7 (08:14→22:01)
[2019-10-01] MEDS: amLODIPine 10 MG TAB PO SCH (09:54)
[2019-10-01] MEDS: INSULIN GLARGINE 100 UNITS/ML SUB-Q SCH ×2 (09:54→22:14)
[2019-10-01] MEDS: SODIUM HYPOCHLORITE, DAKIN'S 1/2 STRENGTH (0.25%) 473 ML TOPICAL SOLN TP SCH (09:56)
--- NOTE | 2019-10-01 12:01 | Progress Note ---
Assessment and Plan Assessment and plan: Patient is a 48-year-old man with IDDM who presents to the hospital with left buttock swelling and pain. He then had a break in his skin and it was draining foul-smelling liquid Sepsis -Continue sepsis protocol, continue antibiotics, ID consult appreciated -Gram-positive bacteremia, discussed with ID, repeat cultures ordered, echo ordered Left buttock abscess s/p left buttock I&D, excisional debridement on 09/23 and then another excisional debridement of buttock wound on 09/29/19 Uncontrolled diabetes with persistent hyperglycemia -Optimize insulins Hypertension continue BP meds Pain control; continue pain medications Severe malnutrition, albumin 2.3 Dietitian consult Morbid Obesity, BMI 40.4 counseling done DVT prophylaxis reviewed Disposition: continue inpatient care, this weekend wet to dry dressing and May discharge home on Wednesday if Home Wound Vac arrangements set up History Interval history: Patient was seen and examined. Follow-up on current diagnosis. No overnight kriss nts reported to me. Patient denies any chest pain, shortness breath, nausea/vomiting or severe headaches. Imaging, nursing note, chart, labs and old chart reviewed. Discussed with patient. Hospitalist Physical - Physical exam Narrative exam: Gen: WDWN, NAD, Awake, Alert, Orientated HEENT: NCAT, EOMI, PERRL, OP Clear Neck: supple, no adenopathy, no thyromegaly, no JVD CVS/Heart: RRR, normal S1S2, pulses present bilaterally Chest/Lungs: CTA B, Symmetrical chest expansion, good air entry bilaterally GI/Abdomen: soft, NTND, good bowel sounds, no guarding or rebound /Bladder: no suprapubic tenderness, no CVA or paraspinal tenderness Extermity/Skin: no c/c/e, no obvious rash MSK: FROM x 4 Neuro: CN 2-12 grossly intact, no new focal deficits Psych: calm - Constitutional Vitals: Temp Pulse Resp BP Pulse Ox 97.9 F 81 18 134/69 96 10/01/19 05:12 10/01/19 09:54 10/01/19 05:12 10/01/19 09:54 10/01/19 05:12 General appearance: Present: obese Results - Labs CBC & Chem 7: 09/26/19 06:06 09/26/19 09:40 Labs: Laboratory Last Values WBC 9.0 K/mm3 (4.5-11.0) 09/26/19 06:06 RBC 3.44 M/mm3 (3.65-5.03) L 09/26/19 06:06 Hgb 11.2 gm/dl (11.8-15.2) L 09/26/19 06:06 Hct 32.4 % (35.5-45.6) L 09/26/19 06:06 MCV 94 fl (84-94) 09/26/19 06:06 MCH 33 pg (28-32) H 09/26/19 06:06 MCHC 35 % (32-34) H 09/26/19 06:06 RDW 12.9 % (13.2-15.2) L 09/26/19 06:06 Plt Count 499 K/mm3 (140-440) H 09/26/19 06:06 Add Manual Diff Complete 09/26/19 06:06 Total Counted 100 09/26/19 06:06 Seg Neuts % (Manual) 84.0 % (40.0-70.0) H 09/26/19 06:06 Band Neutrophils % 2.0 % 09/26/19 06:06 Lymphocytes % (Manual) 6.0 % (13.4-35.0) L 09/26/19 06:06 Reactive Lymphs % (Man) 3.0 % 09/26/19 06:06 Monocytes % (Manual) 3.0 % (0.0-7.3) 09/26/19 06:06 Eosinophils % (Manual) 2.0 % (0.0-4.3) 09/26/19 06:06 Basophils % (Manual) 0 % (0.0-1.8) 09/26/19 06:06 Metamyelocytes % 0 % 09/26/19 06:06 Myelocytes % 0 % 09/26/19 06:06 Promyelocytes % 0 % 09/26/19 06:06 Blast Cells % 0 % 09/26/19 06:06 Nucleated RBC % Not Reportable 09/26/19 06:06 Seg Neutrophils # Man 7.6 K/mm3 (1.8-7.7) 09/26/19 06:06 Band Neutrophils # 0.2 K/mm3 09/26/19 06:06 Lymphocytes # (Manual) 0.5 K/mm3 (1.2-5.4) L 09/26/19 06:06 Abs React Lymphs (Man) 0.3 K/mm3 09/26/19 06:06 Monocytes # (Manual) 0.3 K/mm3 (0.0-0.8) 09/26/19 06:06 Eosinophils # (Manual) 0.2 K/mm3 (0.0-0.4) 09/26/19 06:06 Basophils # (Manual) 0.0 K/mm3 (0.0-0.1) 09/26/19 06:06 Metamyelocytes # 0.0 K/mm3 09/26/19 06:06 Myelocytes # 0.0 K/mm3 09/26/19 06:06 Promyelocytes # 0.0 K/mm3 09/26/19 06:06 Blast Cells # 0.0 K/mm3 09/26/19 06:06 WBC Morphology Not Reportable 09/26/19 06:06 Hypersegmented Neuts Not Reportable 09/26/19 06:06 Hyposegmented Neuts Not Reportable 09/26/19 06:06 Hypogranular Neuts Not Reportable 09/26/19 06:06 Smudge Cells Not Reportable 09/26/19 06:06 Toxic Granulation Not Reportable 09/26/19 06:06 Toxic Vacuolation Not Reportable 09/26/19 06:06 Dohle Bodies Not Reportable 09/26/19 06:06 Pelger-Huet Anomaly Not Reportable 09/26/19 06:06 Mili Rods Not Reportable 09/26/19 06:06 Platelet Estimate Consistent w auto 09/26/19 06:06 Clumped Platelets Not Reportable 09/26/19 06:06 Plt Clumps, EDTA Not Reportable 09/26/19 06:06 Large Platelets Not Reportable 09/26/19 06:06 Giant Platelets Not Reportable 09/26/19 06:06 Platelet Satelliting Not Reportable 09/26/19 06:06 Plt Morphology Comment Not Reportable 09/26/19 06:06 RBC Morphology Normal 09/26/19 06:06 Dimorphic RBCs Not Reportable 09/26/19 06:06 Polychromasia Not Reportable 09/26/19 06:06 Hypochromasia Not Reportable 09/26/19 06:06 Poikilocytosis Not Reportable 09/26/19 06:06 Anisocytosis Not Reportable 09/26/19 06:06 Microcytosis Not Reportable 09/26/19 06:06 Macrocytosis Not Reportable 09/26/19 06:06 Spherocytes Not Reportable 09/26/19 06:06 Pappenheimer Bodies Not Reportable 09/26/19 06:06 Sickle Cells Not Reportable 09/26/19 06:06 Target Cells Not Reportable 09/26/19 06:06 Tear Drop Cells Not Reportable 09/26/19 06:06 Ovalocytes Not Reportable 09/26/19 06:06 Helmet Cells Not Reportable 09/26/19 06:06 [place] Bodies Not Reportable 09/26/19 06:06 [place] Rings Not Reportable 09/26/19 06:06 [place] Cells Not Reportable 09/26/19 06:06 Bite Cells Not Reportable 09/26/19 06:06 Crenated Cell Not Reportable 09/26/19 06:06 Elliptocytes Not Reportable 09/26/19 06:06 Acanthocytes (Spur) Not Reportable 09/26/19 06:06 Rouleaux Not Reportable 09/26/19 06:06 Hemoglobin C Crystals Not Reportable 09/26/19 06:06 Schistocytes Not Reportable 09/26/19 06:06 Malaria parasites Not Reportable 09/26/19 06:06 Nicholas Bodies Not Reportable 09/26/19 06:06 Hem Pathologist Commnt No 09/26/19 06:06 PT 14.8 Sec. (12.2-14.9) 09/22/19 19:00 INR 1.17 (0.87-1.13) H 09/22/19 19:00 VBG pH 7.354 (7.320-7.420) 09/22/19 19:00 Sodium 137 mmol/L (137-145) D 09/26/19 09:40 Potassium 3.1 mmol/L (3.6-5.0) L D 09/26/19 09:40 Chloride 99.5 mmol/L (98-107) 09/26/19 09:40 Carbon Dioxide 24 mmol/L (22-30) 09/26/19 09:40 Anion Gap 17 mmol/L 09/26/19 09:40 BUN 9 mg/dL (9-20) 09/26/19 09:40 Creatinine 0.8 mg/dL (0.8-1.5) 09/26/19 09:40 Estimated GFR > 60 ml/min 09/26/19 09:40 BUN/Creatinine Ratio 11 % 09/26/19 09:40 Glucose 113 mg/dL (75-100) H 09/26/19 09:40 POC Glucose 125 (70-105) H 10/01/19 11:55 Hemoglobin A1c 12.6 % (4-6) H 09/26/19 06:06 Lactic Acid 1.20 mmol/L (0.7-2.0) 09/23/19 04:26 Calcium 7.5 mg/dL (8.4-10.2) L D 09/26/19 09:40 Total Bilirubin 0.40 mg/dL (0.1-1.2) 09/22/19 19:00 AST 51 units/L (5-40) H 09/22/19 19:00 ALT 48 units/L (7-56) 09/22/19 19:00 Alkaline Phosphatase 128 units/L (35-129) 09/22/19 19:00 Total Protein 7.9 g/dL (6.3-8.2) 09/22/19 19:00 Albumin 2.3 g/dL (3.9-5) L 09/22/19 19:00 Albumin/Globulin Ratio 0.4 % 09/22/19 19:00 Urine Color Yellow (Yellow) 09/23/19 Unknown Urine Turbidity Clear (Clear) 09/23/19 Unknown Urine pH 6.0 (5.0-7.0) 09/23/19 Unknown Ur Specific [place] 1.035 (1.003-1.030) H 09/23/19 Unknown Urine Protein 30 mg/dl mg/dL (Negative) 09/23/19 Unknown Urine Glucose (UA) >=500 mg/dL (Negative) 09/23/19 Unknown Urine Ketones Neg mg/dL (Negative) 09/23/19 Unknown Urine Blood Sm (Negative) 09/23/19 Unknown Urine Nitrite Neg (Negative) 09/23/19 Unknown Urine Bilirubin Neg (Negative) 09/23/19 Unknown Urine Urobilinogen < 2.0 mg/dL (<2.0) 09/23/19 Unknown Ur Leukocyte Esterase Neg (Negative) 09/23/19 Unknown Urine WBC (Auto) 1.0 /HPF (0.0-6.0) 09/23/19 Unknown Urine RBC (Auto) 2.0 /HPF (0.0-6.0) 09/23/19 Unknown Vancomycin Trough 16.4 ug/mL (5.0-20.0) 09/26/19 09:40 Active Medications - Current Medications Current Medications: Generic Name Dose Route Start Last Admin Trade Name Freq PRN Reason Stop Dose Admin Acetaminophen 650 mg 09/22/19 23:43 Tylenol PO Q4H PRN Pain MILD(1-3)/Fever >100.5/SALINAS Albuterol 2.5 mg 09/22/19 23:43 Proventil IH Q4HRT PRN Shortness Of Breath Amlodipine Besylate 10 mg 09/23/19 10:00 10/01/19 09:54 Amlodipine PO 10 mg DAILY KAREN Administration Dextrose 0 ml 09/22/19 23:45 D50w (25gm) Syringe IV Q30MIN PRN Hypoglycemia Protocol Enoxaparin Sodium 40 mg 09/29/19 22:00 09/30/19 22:40 Enoxaparin SUB-Q 40 mg QDAY@2200 KAREN Administration Hydromorphone HCl 1 mg 09/24/19 18:01 09/30/19 08:31 Dilaudid IV 1 mg Q4H PRN Administration Pain , Severe (7-10) Ceftriaxone Sodium 2 gm in 100 mls @ 200 mls/hr 09/27/19 14:00 09/30/19 13:30 Rocephin/Ns 2 Gm/100 Ml IV 200 mls/hr Q24H KAREN Administration Protocol Lactated Ringer's 1,000 mls @ 125 mls/hr 09/29/19 12:00 09/30/19 18:46 Lactated Ringers IV 125 mls/hr DIRECT KAREN Administration Insulin Glargine 35 units 09/25/19 22:00 10/01/19 09:54 Lantus SUB-Q 35 units Q12HR AKREN Administration Insulin Human Lispro 0 unit 09/24/19 22:00 10/01/19 08:14 Humalog SUB-Q Not Given ACHS [facility] Protocol Insulin Human Lispro 8 unit 09/25/19 16:30 10/01/19 08:19 Humalog SUB-Q Not Given AC KAREN Ondansetron HCl 4 mg 09/22/19 23:43 Zofran IV Q8H PRN Nausea And Vomiting Oxycodone/Acetaminophen 2 tab 09/24/19 12:32 09/30/19 22:39 Percocet 5/325 PO 2 tab Q6H PRN Administration Pain, Moderate (4-6) Sodium Chloride 10 ml 09/23/19 10:00 10/01/19 09:57 Sodium Chloride Flush Syringe 10 Ml IV 10 ml BID KAREN Administration Sodium Chloride 10 ml 09/22/19 23:43 09/30/19 08:31 Sodium Chloride Flush Syringe 10 Ml IV 10 ml PRN PRN Administration LINE FLUSH Sodium Hypochlorite 1 applic 09/24/19 10:00 10/01/19 09:56 Dakin's Half Strength TP 1 dose DAILY KAREN Administration Nutrition/Malnutrition Assess - Dietary Evaluation Nutrition/Malnutrition Findings: Nutrition Notes Start: 09/26/19 09:49 Freq: Status: Active Protocol: Document 09/28/19 11:08 [place] (Rec: 09/28/19 11:28 [facility]-[id number]) Co-Sign 09/28/19 11:08 Nutrition Notes Initial or Follow up Reassessment Current Diagnosis Diabetes,Hypertension Other Pertinent Diagnosis buttock wound Current Diet Consistent CHO Labs/Tests POC Glu 81 Pertinent Medications Lantus Humalog Dilaudid Height 5 ft 8 in Weight 120.565 kg [place] Body Weight (kg) 70.00 BMI 40.4 Subjective/Other Information F/U for PO intakes. Pt reports moderate appetite and consuming 50% of meals. Pt denies N/V/D. Pt open to ONS. Pt lethargic at time of visit, will follow up at later time for diet education reinforcement. Percent of energy/protein needs met: 48%/44% Burn Absent Trauma Absent GI Symptoms None Minimum of two criteria No physical signs of malnutrition #3 Nutrition Diagnosis Inadequate oral intake As Evidenced by Signs and Symptoms pt eating 50% of meals Diagnosis Progress(for reassessment Improved documentation) #2 Nutrition Diagnosis Food and nutrition-related knowledge deficit Diagnosis Progress(for reassessment Continues documentation) #1 Nutrition Diagnosis Increased nutrient needs ( specify in comment below) Comments: pro Etiology wound healing As Evidenced by Signs and Symptoms buttocks wound Is patient on ventilator? No Is Patient Ambulatory and/or Out of Bed Yes REE-([place]-St. Jeor-ambulatory/OOB) [ 2665.195 NUTR.[email or web address]] Kcal/Kg value to use for calculation 18 Approximate Energy Requirements Using 2170 kcal/Kg Calculation Used for Recommendations Kcal/kg Additional Notes PRO needs: 103-123g (1.25-1.5g /kg AdjBW 82.5kg) Fluid needs: 1 ml/kcal Nutrition Intervention Change Diet Order: Continue Current Diet Add Supplement/Snack (indicate name/kcal Add Vish and Ensure Clear BID /protein ) . Provides kCal: 670 Provides Protein (gm) 21 Goal #1 Meet at least 75% of kcal/pro needs Goal #2 Wound healing Anticipated Discharge Needs: Consistent CHO Diet Follow-Up By: 10/03/19 Additional Comments Follow for PO and ONS intakes, wound healing, and further education questions
--- NOTE | 2019-10-01 12:03 | Progress Note ---
Assessment and Plan - Patient Problems (1) Left buttock abscess Current Visit: Yes Status: Acute Plan to address problem: Pt stable. s/p left buttock I&D, debridement - 09/23 - POD#8; s/p debridement of buttock wound - 09/29 - POD#2. Rec: 1) Daily dressing changes with Dakins this 2) Wound vac to be applied by [facility] on Wednesday. 3) May discharge home from surgical standpoint on Wednesday if Home Wound Vac arrangements already made. He is at risk for treatment failure as he is not motivated to take care of himself. He stopped interacting with me when I advised him to ambulate and care for himself. Please call with questions. Subjective Date of service: 10/01/19 Patient Reports: Positive: no new complaints, still having pain Objective Vital Signs - 12hr 10/01/19 10/01/19 05:12 09:54 Temperature 97.9 F Pulse Rate 70 81 Respiratory 18 Rate Blood Pressure 144/73 134/69 O2 Sat by Pulse 96 Oximetry - General physical appearance no distress, no pain, obese, other (did not want to participate in the conversation) - Respiratory normal expansion, normal respiratory effort - Psychiatric oriented to time, oriented to person, oriented to place, speech is normal, memory intact - Labs 09/26/19 06:06 09/26/19 09:40
[2019-10-01] MEDS: HYDROmorphone 1 MG/1 ML INJ IV PRN ×2 (14:31→22:15)
[2019-10-01] MEDS: cefTRIAXone/NS 2 GM/100 ML 2 GM/100 ML BAG IV SCH (14:31)
[2019-10-01] MEDS: oxyCODONE /ACETAMINOPHEN 5-325MG TAB PO PRN (16:17)
[2019-10-01] MEDS: ENOXAPARIN 40 MG/0.4 ML INJ SUB-Q SCH (22:14)
[2019-10-02] MEDS: oxyCODONE /ACETAMINOPHEN 5-325MG TAB PO PRN ×3 (07:35→22:25)
[2019-10-02] MEDS: INSULIN LISPRO 100 UNIT/ML SUB-Q SCH ×7 (08:22→22:20)
[2019-10-02] MEDS: SODIUM HYPOCHLORITE, DAKIN'S 1/2 STRENGTH (0.25%) 473 ML TOPICAL SOLN TP SCH (09:31)
[2019-10-02] MEDS: INSULIN GLARGINE 100 UNITS/ML SUB-Q SCH ×2 (09:31→22:19)
[2019-10-02] MEDS: amLODIPine 10 MG TAB PO SCH (09:33)
[2019-10-02] MEDS: HYDROmorphone 1 MG/1 ML INJ IV PRN (12:45)
--- NOTE | 2019-10-02 13:09 | Progress Note ---
Assessment and Plan Cultures Blood culture 09/22/2019: Streptococcus salivarius Wound culture 09/23/2019: mixed Gram stain: culture with just skin christian. 09/25/2019 Blood culture: no growth Assessment: 48 yo M PMhx obesity, DM2 admitted for severe soft tissue infection of the buttock. # Acute sepsis - present with fever and leukocytosis. Secondary to necrotizing soft tissue infection of the left buttock # Necrotizing cellulitis/infection of left buttock - s/p debridement. Surgery following. Had additional debridement 09/29/2019, findings "Much vat cleaner wound with fibrinous exudate and some necrotic tissue" # DM2 - recommend tight glycemic control for improved wound healing # Streptococcus salivarius bacteremia: secondary to above. TTE unremarkable for vegetations or valvular issues. Recs: - continue IV Ceftriaxone 2 gm daily, today is day 10. Will continue IV abx while inpatient, upon discharge, can do PO Augmentin 875 mg BID to complete a total 14 day course ending 10/06/2019 - continue glycemic control and wound care d/w RN Summer Samuel MD, FACP [facility] C: [phone] O: [phone] F: [phone] Subjective Date of service: 10/02/19 Interval history: No fever. Getting VAC change done. Wound appears healthy. Pain during vac change. Objective - Exam Narrative Exam: Physical Exam: Constitutional: Alert, cooperative. No acute distress. Obese Head, Ears, Nose: Normocephalic, atraumatic. External ears, nose normal Eyes: Conjunctivae/corneas clear. No icterus. No ptosis. Neck: Supple, no meningeal signs Oral: no thrush Cardiovascular: S1, S2 normal. Respiratory: Good air entry, clear to auscultation bilaterally GI: Soft, non-tender; bowel sounds normal. No peritoneal signs Musculoskeletal: Left buttock with large wound, clean base Skin: No rash or abscess Hem/Lymphatic: No palpable cervical or supraclavicular nodes. No lymphangitis Psych: Mood ok. Affect normal Neurological: Awake, alert, oriented. No gross abnormality - Constitutional Vitals: Vital Signs Temp Pulse Resp BP Pulse Ox 97.8 F 70 19 155/90 95 10/02/19 07:32 10/02/19 09:33 10/02/19 07:32 10/02/19 09:33 10/02/19 07:32 Temperature -Last 24 Hours Temperature 97.8 F Temperature 98.0 F Temperature 98.4 F Temperature 97.9 F - Labs CBC & Chem 7: 09/26/19 06:06 09/26/19 09:40 Labs: Abnormal lab results 10/01/19 10/01/19 Range/Units 16:59 21:45 POC Glucose 148 H 143 H (70-105)
[2019-10-02] MEDS: cefTRIAXone/NS 2 GM/100 ML 2 GM/100 ML BAG IV SCH (14:36)
--- NOTE | 2019-10-02 14:43 | Progress Note ---
Assessment and Plan Assessment and plan: Patient is a 48-year-old man with IDDM who presents to the hospital with left buttock swelling and pain. He then had a break in his skin and it was draining foul-smelling liquid Sepsis -Continue sepsis protocol, continue antibiotics, ID consult appreciated -Gram-positive bacteremia, discussed with ID, repeat cultures ordered, echo ordered Left buttock abscess s/p left buttock I&D, excisional debridement on 09/23 and then another excisional debridement of buttock wound on 09/29/19 Uncontrolled diabetes with persistent hyperglycemia -Optimize insulins Hypertension continue BP meds Pain control; continue pain medications Severe malnutrition, albumin 2.3 Dietitian consult Morbid Obesity, BMI 40.4 counseling done DVT prophylaxis reviewed Disposition: continue inpatient care, waiting on home Wound Vac History Interval history: Patient was seen and examined. Follow-up on current diagnosis. No overnight events reported to me. Patient denies any chest pain, shortness breath, nausea/v omiting or severe headaches. Imaging, nursing note, chart, labs and old chart reviewed. Discussed with patient. Hospitalist Physical - Physical exam Narrative exam: Gen: WDWN, NAD, Awake, Alert, Orientated HEENT: NCAT, EOMI, PERRL, OP Clear Neck: supple, no adenopathy, no thyromegaly, no JVD CVS/Heart: RRR, normal S1S2, pulses present bilaterally Chest/Lungs: CTA B, Symmetrical chest expansion, good air entry bilaterally GI/Abdomen: soft, NTND, good bowel sounds, no guarding or rebound /Bladder: no suprapubic tenderness, no CVA or paraspinal tenderness Extermity/Skin: no c/c/e, no obvious rash MSK: FROM x 4 Neuro: CN 2-12 grossly intact, no new focal deficits Psych: calm - Constitutional Vitals: Temp Pulse Resp BP Pulse Ox 97.8 F 70 19 155/90 95 10/02/19 07:32 10/02/19 09:33 10/02/19 07:32 10/02/19 09:33 10/02/19 07:32 General appearance: Present: obese Results - Labs CBC & Chem 7: 09/26/19 06:06 09/26/19 09:40 Labs: Laboratory Last Values WBC 9.0 K/mm3 (4.5-11.0) 09/26/19 06:06 RBC 3.44 M/mm3 (3.65-5.03) L 09/26/19 06:06 Hgb 11.2 gm/dl (11.8-15.2) L 09/26/19 06:06 Hct 32.4 % (35.5-45.6) L 09/26/19 06:06 MCV 94 fl (84-94) 09/26/19 06:06 MCH 33 pg (28-32) H 09/26/19 06:06 MCHC 35 % (32-34) H 09/26/19 06:06 RDW 12.9 % (13.2-15.2) L 09/26/19 06:06 Plt Count 499 K/mm3 (140-440) H 09/26/19 06:06 Add Manual Diff Complete 09/26/19 06:06 Total Counted 100 09/26/19 06:06 Seg Neuts % (Manual) 84.0 % (40.0-70.0) H 09/26/19 06:06 Band Neutrophils % 2.0 % 09/26/19 06:06 Lymphocytes % (Manual) 6.0 % (13.4-35.0) L 09/26/19 06:06 Reactive Lymphs % (Man) 3.0 % 09/26/19 06:06 Monocytes % (Manual) 3.0 % (0.0-7.3) 09/26/19 06:06 Eosinophils % (Manual) 2.0 % (0.0-4.3) 09/26/19 06:06 Basophils % (Manual) 0 % (0.0-1.8) 09/26/19 06:06 Metamyelocytes % 0 % 09/26/19 06:06 Myelocytes % 0 % 09/26/19 06:06 Promyelocytes % 0 % 09/26/19 06:06 Blast Cells % 0 % 09/26/19 06:06 Nucleated RBC % Not Reportable 09/26/19 06:06 Seg Neutrophils # Man 7.6 K/mm3 (1.8-7.7) 09/26/19 06:06 Band Neutrophils # 0.2 K/mm3 09/26/19 06:06 Lymphocytes # (Manual) 0.5 K/mm3 (1.2-5.4) L 09/26/19 06:06 Abs React Lymphs (Man) 0.3 K/mm3 09/26/19 06:06 Monocytes # (Manual) 0.3 K/mm3 (0.0-0.8) 09/26/19 06:06 Eosinophils # (Manual) 0.2 K/mm3 (0.0-0.4) 09/26/19 06:06 Basophils # (Manual) 0.0 K/mm3 (0.0-0.1) 09/26/19 06:06 Metamyelocytes # 0.0 K/mm3 09/26/19 06:06 Myelocytes # 0.0 K/mm3 09/26/19 06:06 Promyelocytes # 0.0 K/mm3 09/26/19 06:06 Blast Cells # 0.0 K/mm3 09/26/19 06:06 WBC Morphology Not Reportable 09/26/19 06:06 Hypersegmented Neuts Not Reportable 09/26/19 06:06 Hyposegmented Neuts Not Reportable 09/26/19 06:06 Hypogranular Neuts Not Reportable 09/26/19 06:06 Smudge Cells Not Reportable 09/26/19 06:06 Toxic Granulation Not Reportable 09/26/19 06:06 Toxic Vacuolation Not Reportable 09/26/19 06:06 Dohle Bodies Not Reportable 09/26/19 06:06 Pelger-Huet Anomaly Not Reportable 09/26/19 06:06 Mili Rods Not Reportable 09/26/19 06:06 Platelet Estimate Consistent w auto 09/26/19 06:06 Clumped Platelets Not Reportable 09/26/19 06:06 Plt Clumps, EDTA Not Reportable 09/26/19 06:06 Large Platelets Not Reportable 09/26/19 06:06 Giant Platelets Not Reportable 09/26/19 06:06 Platelet Satelliting Not Reportable 09/26/19 06:06 Plt Morphology Comment Not Reportable 09/26/19 06:06 RBC Morphology Normal 09/26/19 06:06 Dimorphic RBCs Not Reportable 09/26/19 06:06 Polychromasia Not Reportable 09/26/19 06:06 Hypochromasia Not Reportable 09/26/19 06:06 Poikilocytosis Not Reportable 09/26/19 06:06 Anisocytosis Not Reportable 09/26/19 06:06 Microcytosis Not Reportable 09/26/19 06:06 Macrocytosis Not Reportable 09/26/19 06:06 Spherocytes Not Reportable 09/26/19 06:06 Pappenheimer Bodies Not Reportable 09/26/19 06:06 Sickle Cells Not Reportable 09/26/19 06:06 Target Cells Not Reportable 09/26/19 06:06 Tear Drop Cells Not Reportable 09/26/19 06:06 Ovalocytes Not Reportable 09/26/19 06:06 Helmet Cells Not Reportable 09/26/19 06:06 [place] Bodies Not Reportable 09/26/19 06:06 [place] Rings Not Reportable 09/26/19 06:06 Al Cells Not Reportable 09/26/19 06:06 Bite Cells Not Reportable 09/26/19 06:06 Crenated Cell Not Reportable 09/26/19 06:06 Elliptocytes Not Reportable 09/26/19 06:06 Acanthocytes (Spur) Not Reportable 09/26/19 06:06 Rouleaux Not Reportable 09/26/19 06:06 Hemoglobin C Crystals Not Reportable 09/26/19 06:06 Schistocytes Not Reportable 09/26/19 06:06 Malaria parasites Not Reportable 09/26/19 06:06 Nicholas Bodies Not Reportable 09/26/19 06:06 Hem Pathologist Commnt No 09/26/19 06:06 PT 14.8 Sec. (12.2-14.9) 09/22/19 19:00 INR 1.17 (0.87-1.13) H 09/22/19 19:00 VBG pH 7.354 (7.320-7.420) 09/22/19 19:00 Sodium 137 mmol/L (137-145) D 09/26/19 09:40 Potassium 3.1 mmol/L (3.6-5.0) L D 09/26/19 09:40 Chloride 99.5 mmol/L (98-107) 09/26/19 09:40 Carbon Dioxide 24 mmol/L (22-30) 09/26/19 09:40 Anion Gap 17 mmol/L 09/26/19 09:40 BUN 9 mg/dL (9-20) 09/26/19 09:40 Creatinine 0.8 mg/dL (0.8-1.5) 09/26/19 09:40 Estimated GFR > 60 ml/min 09/26/19 09:40 BUN/Creatinine Ratio 11 % 09/26/19 09:40 Glucose 113 mg/dL (75-100) H 09/26/19 09:40 POC Glucose 77 (70-105) 10/02/19 12:18 Hemoglobin A1c 12.6 % (4-6) H 09/26/19 06:06 Lactic Acid 1.20 mmol/L (0.7-2.0) 09/23/19 04:26 Calcium 7.5 mg/dL (8.4-10.2) L D 09/26/19 09:40 Total Bilirubin 0.40 mg/dL (0.1-1.2) 09/22/19 19:00 AST 51 units/L (5-40) H 09/22/19 19:00 ALT 48 units/L (7-56) 09/22/19 19:00 Alkaline Phosphatase 128 units/L (35-129) 09/22/19 19:00 Total Protein 7.9 g/dL (6.3-8.2) 09/22/19 19:00 Albumin 2.3 g/dL (3.9-5) L 09/22/19 19:00 Albumin/Globulin Ratio 0.4 % 09/22/19 19:00 Urine Color Yellow (Yellow) 09/23/19 Unknown Urine Turbidity Clear (Clear) 09/23/19 Unknown Urine pH 6.0 (5.0-7.0) 09/23/19 Unknown Ur Specific [place] 1.035 (1.003-1.030) H 09/23/19 Unknown Urine Protein 30 mg/dl mg/dL (Negative) 09/23/19 Unknown Urine Glucose (UA) >=500 mg/dL (Negative) 09/23/19 Unknown Urine Ketones Neg mg/dL (Negative) 09/23/19 Unknown Urine Blood Sm (Negative) 09/23/19 Unknown Urine Nitrite Neg (Negative) 09/23/19 Unknown Urine Bilirubin Neg (Negative) 09/23/19 Unknown Urine Urobilinogen < 2.0 mg/dL (<2.0) 09/23/19 Unknown Ur Leukocyte Esterase Neg (Negative) 09/23/19 Unknown Urine WBC (Auto) 1.0 /HPF (0.0-6.0) 09/23/19 Unknown Urine RBC (Auto) 2.0 /HPF (0.0-6.0) 09/23/19 Unknown Vancomycin Trough 16.4 ug/mL (5.0-20.0) 09/26/19 09:40 Active Medications - Current Medications Current Medications: Generic Name Dose Route Start Last Admin Trade Name Freq PRN Reason Stop Dose Admin Acetaminophen 650 mg 09/22/19 23:43 Tylenol PO Q4H PRN Pain MILD(1-3)/Fever >100.5/SALINAS Albuterol 2.5 mg 09/22/19 23:43 Proventil IH Q4HRT PRN Shortness Of Breath Amlodipine Besylate 10 mg 09/23/19 10:00 10/02/19 09:33 Amlodipine PO 10 mg DAILY KAREN Administration Dextrose 0 ml 09/22/19 23:45 D50w (25gm) Syringe IV Q30MIN PRN Hypoglycemia Protocol Enoxaparin Sodium 40 mg 09/29/19 22:00 10/01/19 22:14 Enoxaparin SUB-Q 40 mg QDAY@2200 KAREN Administration Hydromorphone HCl 1 mg 09/24/19 18:01 10/02/19 12:45 Dilaudid IV 1 mg Q4H PRN Administration Pain , Severe (7-10) Ceftriaxone Sodium 2 gm in 100 mls @ 200 mls/hr 09/27/19 14:00 10/02/19 14:36 Rocephin/Ns 2 Gm/100 Ml IV 200 mls/hr Q24H KAREN Administration Protocol Lactated Ringer's 1,000 mls @ 125 mls/hr 09/29/19 12:00 09/30/19 18:46 Lactated Ringers IV 125 mls/hr DIRECT KAREN Administration Insulin Glargine 35 units 09/25/19 22:00 10/02/19 09:31 Lantus SUB-Q 35 units Q12HR KAREN Administration Insulin Human Lispro 0 unit 09/24/19 22:00 10/02/19 12:14 Humalog SUB-Q Not Given ACHS KAREN Protocol Insulin Human Lispro 8 unit 09/25/19 16:30 10/02/19 12:15 Humalog SUB-Q Not Given AC KAREN Ondansetron HCl 4 mg 09/22/19 23:43 Zofran IV Q8H PRN Nausea And Vomiting Oxycodone/Acetaminophen 2 tab 09/24/19 12:32 10/02/19 14:35 Percocet 5/325 PO 2 tab Q6H PRN Administration Pain, Moderate (4-6) Sodium Chloride 10 ml 09/23/19 10:00 10/02/19 09:37 Sodium Chloride Flush Syringe 10 Ml IV 10 ml BID KAREN Administration Sodium Chloride 10 ml 09/22/19 23:43 09/30/19 08:31 Sodium Chloride Flush Syringe 10 Ml IV 10 ml PRN PRN Administration LINE FLUSH Sodium Hypochlorite 1 applic 09/24/19 10:00 10/02/19 09:31 Dakin's Half Strength TP 1 dose DAILY KAREN Administration Nutrition/Malnutrition Assess - Dietary Evaluation Nutrition/Malnutrition Findings: Nutrition Notes Start: 09/26/19 09:49 Freq: Status: Active Protocol: Document 09/28/19 11:08 [place] (Rec: 09/28/19 11:28 [facility]-[id number]) Co-Sign 09/28/19 11:08 Nutrition Notes Initial or Follow up Reassessment Current Diagnosis Diabetes,Hypertension Other Pertinent Diagnosis buttock wound Current Diet Consistent CHO Labs/Tests POC Glu 81 Pertinent Medications Lantus Humalog Dilaudid Height 5 ft 8 in Weight 120.565 kg [place] Body Weight (kg) 70.00 BMI 40.4 Subjective/Other Information F/U for PO intakes. Pt reports moderate appetite and consuming 50% of meals. Pt denies N/V/D. Pt open to ONS. Pt lethargic at time of visit, will follow up at later time for diet education reinforcement. Percent of energy/protein needs met: 48%/44% Burn Absent Trauma Absent GI Symptoms None Minimum of two criteria No physical signs of malnutrition #3 Nutrition Diagnosis Inadequate oral intake As Evidenced by Signs and Symptoms pt eating 50% of meals Diagnosis Progress(for reassessment Improved documentation) #2 Nutrition Diagnosis Food and nutrition-related knowledge deficit Diagnosis Progress(for reassessment Continues documentation) #1 Nutrition Diagnosis Increased nutrient needs ( specify in comment below) Comments: pro Etiology wound healing As Evidenced by Signs and Symptoms buttocks wound Is patient on ventilator? No Is Patient Ambulatory and/or Out of Bed Yes REE-(Tucker-St. Jeor-ambulatory/OOB) [ 2665.195 NUTR.MSJOOB] Kcal/Kg value to use for calculation 18 Approximate Energy Requirements Using 2170 kcal/Kg Calculation Used for Recommendations Kcal/kg Additional Notes PRO needs: 103-123g (1.25-1.5g /kg AdjBW 82.5kg) Fluid needs: 1 ml/kcal Nutrition Intervention Change Diet Order: Continue Current Diet Add Supplement/Snack (indicate name/kcal Add Vish and Ensure Clear BID /protein ) . Provides kCal: 670 Provides Protein (gm) 21 Goal #1 Meet at least 75% of kcal/pro needs Goal #2 Wound healing Anticipated Discharge Needs: Consistent CHO Diet Follow-Up By: 10/03/19 Additional Comments Follow for PO and ONS intakes, wound healing, and further education questions
[2019-10-02] MEDS: ENOXAPARIN 40 MG/0.4 ML INJ SUB-Q SCH (22:19)
[2019-10-03] MEDS: oxyCODONE /ACETAMINOPHEN 5-325MG TAB PO PRN ×2 (07:41→14:12)
[2019-10-03] MEDS: INSULIN LISPRO 100 UNIT/ML SUB-Q SCH ×6 (07:43→16:43)
[2019-10-03] MEDS: amLODIPine 10 MG TAB PO SCH (09:08)
[2019-10-03] MEDS: INSULIN GLARGINE 100 UNITS/ML SUB-Q SCH (09:08)
[2019-10-03] MEDS: SODIUM HYPOCHLORITE, DAKIN'S 1/2 STRENGTH (0.25%) 473 ML TOPICAL SOLN TP SCH (12:58)
[2019-10-03] MEDS: cefTRIAXone/NS 2 GM/100 ML 2 GM/100 ML BAG IV SCH (14:12)
--- NOTE | 2019-10-03 16:12 | Progress Note ---
Assessment and Plan Cultures Blood culture 09/22/2019: Streptococcus salivarius Wound culture 09/23/2019: mixed Gram stain: culture with just skin christian. 09/25/2019 Blood culture: no growth Assessment: 48 yo M PMhx obesity, DM2 admitted for severe soft tissue infection of the buttock. # Acute sepsis - present with fever and leukocytosis. Secondary to necrotizing soft tissue infection of the left buttock # Necrotizing cellulitis/infection of left buttock - s/p debridement. Surgery following. Had additional debridement 09/29/2019, findings "Much cooker cleaner wound with fibrinous exudate and some necrotic tissue" # DM2 - recommend tight glycemic control for improved wound healing # Streptococcus salivarius bacteremia: secondary to above. TTE unremarkable for vegetations or valvular issues. Recs: - continue IV Ceftriaxone 2 gm daily, today is day 11. Upon discharge, can do PO Augmentin 875 mg BID ending 10/06/2019 - continue glycemic control and wound care - ID clinic follow up PRN ID will sign off. Please call with questions. Summer Samuel MD, FACP [facility] ([facility] C: [phone] O: [phone] F: [phone] Subjective Date of service: 10/03/19 Interval history: No fever. Tolerating abx. Eating well. Objective - Exam Narrative Exam: Physical Exam: Constitutional: Alert, cooperative. No acute distress. Obese Head, Ears, Nose: Normocephalic, atraumatic. External ears, nose normal Eyes: Conjunctivae/corneas clear. No icterus. No ptosis. Neck: Supple, no meningeal signs Oral: no thrush Cardiovascular: S1, S2 normal. Respiratory: Good air entry, clear to auscultation bilaterally GI: Soft, non-tender; bowel sounds normal. No peritoneal signs Musculoskeletal: Left buttock with large wound, clean base, dressing + Skin: No rash or abscess Hem/Lymphatic: No palpable cervical or supraclavicular nodes. No lymphangitis Psych: Mood ok. Affect normal Neurological: Awake, alert, oriented. No gross abnormality - Constitutional Vitals: Vital Signs Temp Pulse Resp BP Pulse Ox 97.8 F 71 18 127/69 95 10/03/19 11:37 10/03/19 11:37 10/03/19 11:37 10/03/19 11:37 10/03/19 11:37 Temperature -Last 24 Hours Temperature 97.8 F Temperature 97.8 F Temperature 98.6 F Temperature 97.9 F Temperature 97.9 F - Labs CBC & Chem 7: 09/26/19 06:06 09/26/19 09:40 Labs: Abnormal lab results 10/02/19 Range/Units 17:03 POC Glucose 248 H (70-105)
--- NOTE | 2019-10-03 16:20 | Progress Note ---
Assessment and Plan Patient is a 48-year-old man with IDDM who presents to the hospital with left buttock swelling and pain. He then had a break in his skin and it was draining foul-smelling liquid Sepsis -Continue sepsis protocol, continue antibiotics, ID consult appreciated -Gram-positive bacteremia, discussed with ID, repeat cultures ordered, echo ordered Left buttock abscess s/p left buttock I&D, excisional debridement on 09/23 and then another excisional debridement of buttock wound on 09/29/19 Uncontrolled diabetes with persistent hyperglycemia -Optimize insulins Hypertension continue BP meds Pain control; continue pain medications Severe malnutrition, albumin 2.3 Dietitian consult Morbid Obesity, BMI 40.4 counseling done DVT prophylaxis reviewed Disposition: continue inpatient care, waiting on home Wound Vac History Interval history: Patient was seen and examined. Follow-up on current diagnosis. No overnight events reported to me. Patient denies any chest pain, shortness breath, nausea/vomiting or severe headaches. Imaging, nursing note, chart, labs and old chart reviewed. Discussed with patient. Hospitalist Physical - Physical exam Narrative exam: Gen: WDWN, NAD, Awake, Alert, Orientated HEENT: NCAT, EOMI, PERRL, OP Clear Neck: supple, no adenopathy, no thyromegaly, no JVD CVS/Heart: RRR, normal S1S2, pulses present bilaterally Chest/Lungs: CTA B, Symmetrical chest expansion, good air entry bilaterally GI/Abdomen: soft, NTND, good bowel sounds, no guarding or rebound /Bladder: no suprapubic tenderness, no CVA or paraspinal tenderness Extermity/Skin: no c/c/e, no obvious rash MSK: FROM x 4 Neuro: CN 2-12 grossly intact, no new focal deficits Psych: calm Subjective Date of service: 10/03/19 Objective - Constitutional Vitals: Vital Signs - 12hr 10/03/19 10/03/19 10/03/19 04:34 07:28 11:37 Temperature 98.6 F 97.8 F 97.8 F Pulse Rate 66 75 71 Respiratory 19 20 18 Rate Blood Pressure 134/64 146/86 127/69 O2 Sat by Pulse 95 95 95 Oximetry - Labs CBC & Chem 7: 09/26/19 06:06 09/26/19 09:40 Labs: Abnormal lab results 10/02/19 Range/Units 17:03 POC Glucose 248 H (70-105)
--- NOTE | 2019-10-03 16:43 | Discharge Summary ---
Providers - Providers Date of Admission: 09/22/19 23:43 Date of discharge: 10/03/19 Attending physician: PAUL POLLARD 09/22/19 22:06 Consult to Physician [CONS] Stat Comment: IRVIN Dennis spoke with Dr. Reilly @ [phone] Consulting Provider: PAO REILLY Physician Instructions: Reason For Exam: left gluteal cellulitis 09/23/19 10:40 Consult to Physician [CONS] Routine Comment: Consulting Provider: NEETU MOSS Physician Instructions: Reason For Exam: gluteal cellulitis 09/23/19 12:57 Consult to Wound/ET Nurse [CONS] Routine Reason For Exam: wound eval 09/25/19 14:32 Consult to Dietitian/Nutrition [CONS] Routine Physician Instructions: Reason For Exam: Reason for Consult: Malnutrition Primary care physician: FLAMER AFTER LASTING Hospitalization Condition: Fair Hospital course: Patient is a 48-year-old man with IDDM who presents to the hospital with left buttock swelling and pain. He then had a break in his skin and it was draining foul-smelling liquid Discharge diagnosis Sepsis with left buttock abscess -Continue sepsis protocol, continue antibiotics, ID consult appreciated -Gram-positive bacteremia, discussed with ID, repeat cultures ordered, echo ordered Left buttock abscess s/p left buttock I&D, excisional debridement on 09/23 and then another ex cisional debridement of buttock wound on 09/29/19 Uncontrolled diabetes with persistent hyperglycemia -Optimize insulins Hypertension continue BP meds Pain control; continue pain medications Severe malnutrition, albumin 2.3 Dietitian consult Morbid Obesity, BMI 40.4 counseling done DVT prophylaxis reviewed Disposition: continue inpatient care, waiting on home Wound Vac Physical exam: Gen: WDWN, NAD, Awake, Alert, Orientated HEENT: NCAT, EOMI, PERRL, OP Clear Neck: supple, no adenopathy, no thyromegaly, no JVD CVS/Heart: RRR, normal S1S2, pulses present bilaterally Chest/Lungs: CTA B, Symmetrical chest expansion, good air entry bilaterally GI/Abdomen: soft, NTND, good bowel sounds, no guarding or rebound /Bladder: no suprapubic tenderness, no CVA or paraspinal tenderness Extermity/Skin: no c/c/e, no obvious rash MSK: FROM x 4 Neuro: CN 2-12 grossly intact, no new focal deficits Psych: calm Disposition: DC/TX-06 HOME UNDER HOME [facility] Time spent for discharge: 34 minutes Core Measure Documentation - Palliative Care Palliative Care/ Comfort Measures: Not Applicable - Core Measures Any of the following diagnoses?: none Exam - Constitutional Vitals: Temp Pulse Resp BP Pulse Ox 97.8 F 71 18 127/69 95 10/03/19 11:37 10/03/19 11:37 10/03/19 11:37 10/03/19 11:37 10/03/19 11:37 Plan Activity: advance as tolerated Weight Bearing Status: Weight Bear as Tolerated Diet: low fat, low salt, diabetic Wound: per your surgeon's advice Follow up with: PRIMARY MD SACHA [Primary Care Provider] - 3-5 Days PAO REILLY MD [Staff Physician] - 7 Days Prescriptions: Amoxicillin/Potassium Clav [Augmentin 875-125 Tablet] 1 each PO BID #7 tablet Lispro Insulin [HumaLOG] 8 unit SUB-Q AC #10 ml Insulin Glargine [Lantus VIAL] 35 units SUB-Q Q12HR #10 ml oxyCODONE /ACETAMINOPHEN [Percocet 5/325 mg] 2 tab PO Q6H PRN #14 tablet PRN Reason: Pain, Moderate (4-6)
[2019-10-03 16:48] VITALS: BP 131/77
== END 2019-10-03 18:20 | disposition home health service (06) | DRG 853 ==
LOC: ED 18:42 → 3B-SURG 23:43
PROVIDERS: ADMIT Internal Medicine; ATTEND Internal Medicine
PROC: 0JB90ZZ Excision of Buttock Subcutaneous Tissue and Fascia, Open Approach (ICD-10-PCS; principal; 2019-09-23)
PROC: 0JB90ZZ Excision of Buttock Subcutaneous Tissue and Fascia, Open Approach (ICD-10-PCS; 2019-09-29)
DX: A40.8 Other streptococcal sepsis (principal); E43 Unspecified severe protein-calorie malnutrition; L03.317 Cellulitis of buttock; E87.2 Acidosis; L02.31 Cutaneous abscess of buttock; Z68.41 Body mass index [BMI] 40.0-44.9, adult; E66.01 Morbid (severe) obesity due to excess calories; I10 Essential (primary) hypertension; E11.65 Type 2 diabetes mellitus with hyperglycemia; Z79.4 Long term (current) use of insulin; Z82.49 Family history of ischemic heart disease and other diseases of the circulatory system; Z83.3 Family history of diabetes mellitus; Z71.3 Dietary counseling and surveillance; Z79.899 Other long term (current) drug therapy
CPT/HCPCS: 36415; 71045; 74177; 80048; 80053; 80202; 81001; 82140; 82805; 82962; 83036; 85007; 85025; 85610; 87040; 87075; 87086; 87116; 93005; 93010; 93306; 96361; 96365; 96366; 96367; 96375; 96376; G0378; A6260; J0690; J0692; J0696; J1170; J1650; J1815; J2250; J2270; J2405; J2704; J3010; J3370; J7030; J7040; J7050; J7120; Q9967

== ENCOUNTER 2019-10-06 11:34 | Emergency (ER) | payer OTHER ==
[2019-10-06 11:51] VITALS: BP 140/82
--- NOTE | 2019-10-06 11:52 | Event Note ---
ED Screening Note Date of service: 10/06/19 Time: 11:48 ED Screening Note: This is a 48 y.o. M. that presents to the ER for wound vac changed. This initial assessment/diagnostic orders/clinical plan/treatment(s) is/are subject to change based on patients health status, clinical progression and re- assessment by fellow clinical providers in the ED. Further treatment and workup at subsequent clinical providers discretion. Patient/guardian urged not to elope from the ED as their condition may be serious if not clinically assessed and managed. Initial orders include: Main ED for further evaluation.
--- NOTE | 2019-10-06 16:02 | Emergency Department Report ---
Chief Complaint: Wound/Laceration Stated Complaint: WOUND CHECK Time Seen by Provider: 10/06/19 11:48 - HPI History of Present Illness: Mr. Echols presents drainage from wound vac on buttock sacral wound. He has home health nurse visitation in 3 days. On examination tegaderm is partially removed. Our nursing staff members called wound care nurse for advice. Wound care nurse recommended wet to dry dressing until seen by his personal nurse. RN packed the wound and provided reassurance/education MSE performed and completed. Mr. Echols has established care with a new PCP - Exam Vital Signs: Vital Signs 10/06/19 11:48 Temperature 98.0 F Pulse Rate 87 Respiratory 20 Rate Blood Pressure 140/82 O2 Sat by Pulse 97 Oximetry MSE screening note: Focused history and physical exam performed. Due to findings the following was ordered: ED Disposition for MSE Clinical Impression: Encounter for wound care Disposition: MED SCREENING EXAM-LEFT Is pt being admited?: No Does the pt Need Aspirin: No Condition: Stable
[2019-10-06] MEDS ORDERED: oxyCODONE /ACETAMINOPHEN 5-325MG TAB PO ONE (16:08)
== END 2019-10-06 17:20 | disposition left against medical advice (07) ==
LOC: ED 11:34
DX: Z48.01 Encounter for change or removal of surgical wound dressing (principal)